=== PATIENT | male | born 1955 | race Caucasian/White ===

== ENCOUNTER 2020-04-13 13:45 | Outpatient (REF) | payer BC, SELFPAY ==
--- NOTE | 2020-04-13 13:49 | US_ITS ---
EXAMINATION: NONINVASIVE ASSESSMENT OF THE ARTERIES OF BOTH LOWER EXTREMITIES WITH BILATERAL LOWER EXTREMITY DUPLEX CLINICAL INFORMATION: Peripheral liver disease TECHNIQUE: Duplex Doppler techniques with wave form analysis and measurement of velocities in the common femoral, profunda femoral, superficial femoral, popliteal and tibial arteries. The study was performed only at rest. COMPARISON: None FINDINGS: a) AT REST: RIGHT LEG: Right direct duplex Doppler findings: There is atherosclerotic plaque. There is mild diffuse arteriomegaly. * Common femoral artery: 210 cm/s, Diastolic flow reversal: Yes * Superficial femoral artery (proximal, mid, distal): 141, 145 and 81 cm/s, Diastolic flow reversal: No * Popliteal artery: 58 cm/s, Diastolic flow reversal: Yes * Posterior tibial artery: 1:15 cm/s, Diastolic flow reversal: No LEFT LEG: Left direct duplex Doppler findings: There is atherosclerotic plaque. There is mild diffuse arteriomegaly. There is a severe stenosis of the left mid superficial femoral artery. * Common femoral artery: 120 cm/s, Diastolic flow reversal: Yes * Superficial femoral artery (proximal, mid, distal): 90, 598 and 40 cm/s, Diastolic flow reversal: No * Popliteal artery: 34 cm/s, Diastolic flow reversal: No * Posterior tibial artery: 65 cm/s, Diastolic flow reversal: No US/US arterial duplex LE BI IMPRESSION: Right: Mild atherosclerotic disease with calcified plaque. Mild generalized arteriomegaly. No focal stenosis. Left: Mild atherosclerotic disease with calcified plaque and generalized arteriomegaly. Severe left mid SFA stenosis
== END 2020-04-13 13:46 | disposition home or self-care (01) ==
LOC: HO.US 13:45
PROVIDERS: Visit Provider Internal Medicine Cardiovascular Disease
DX: I73.9 Peripheral vascular disease, unspecified (principal)
CPT/HCPCS: 93925

== ENCOUNTER 2020-04-14 08:39 | Outpatient (REF) | payer BC, SELFPAY ==
[2020-04-14 11:50] LABS: Anion Gap 11 (12-20); Blood Urea Nitrogen 11 mg/dL (9-16); Calcium 9.1 mg/dL (8.4-10.2); Carbon Dioxide 30 mmol/L (22-29); Chloride 102 mmol/L (96-108); Estimated Glomerular Filt Rate > 60; Glucose Random 99 mg/dL (60-115); Potassium 5.1 mmol/l (3.3-5.1); Sodium 138 mmol/L (135-145)
== END 2020-04-14 08:40 | disposition home or self-care (01) ==
LOC: HO.LAB 08:39
PROVIDERS: PCP Nurse Practitioner Family; Visit Provider Internal Medicine Cardiovascular Disease
DX: I73.9 Peripheral vascular disease, unspecified (principal); I25.5 Ischemic cardiomyopathy; I25.10 Atherosclerotic heart disease of native coronary artery without angina pectoris; F17.200 Nicotine dependence, unspecified, uncomplicated; E78.5 Hyperlipidemia, unspecified; Z79.899 Other long term (current) drug therapy
CPT/HCPCS: 36415; 80048; 93005

== ENCOUNTER 2020-04-15 10:59 | Outpatient (REF) | payer BC, SELFPAY ==
--- NOTE | 2020-04-15 11:01 | CT_ITS ---
EXAMINATION: CT ANGIOGRAPHY LEGS WITH RUNOFF CLINICAL INFORMATION: Peripheral vascular disease COMPARISON: None TECHNIQUE: Contiguous axial images were obtained through the abdomen and pelvis after administration of 85 mL of Omnipaque 350. Oral contrast was not administered. Images were evaluated on an independent dedicated 3-D workstation and 3-D images were reconstructed with concurrent radiologist supervision and subsequently interpreted. This CT examination was performed using dose optimization techniques as appropriate, variously including the following: *Automated exposure control *Adjustment of mA and/or kV according to patient size (this includes techniques or standardized protocols for targeted exams where dose is matched to indication/reason for exam; i.e. extremities or head) *Use of iterative reconstruction technique DLP: 815 mGy-cm FINDINGS: Lower chest: Unremarkable. There are no pleural effusions. Liver: Normal in size and attenuation. No focal lesions. Gallbladder and bile ducts: The gallbladder is normal. No intrahepatic or extrahepatic biliary ductal dilatation. Spleen: Normal in size and attenuation. Pancreas: Unremarkable. Adrenal glands: Unremarkable. Right kidney: The right kidney is normal. There is no hydronephrosis or hydroureter. Left kidney: The left kidney is normal. There is no hydronephrosis or hydroureter. Lymph nodes: There is no lymphadenopathy in the abdomen or pelvis. Gastrointestinal tract: The stomach, small, and large bowel are normal in course and caliber. The appendix is identified and is within normal limits. Colonic diverticulosis is noted. Urinary bladder: The bladder is underdistended.. Pelvic organs: Mild prostatomegaly. Vasculature: Mild ectasia of the infrarenal abdominal aorta measuring 2.4 cm. There is moderate mixed calcific and noncalcific atherosclerotic disease. There is mild stenosis at the origin of the celiac artery. The SMA patent. There is moderate stenosis at the origin of the KI. There are 2 right renal arteries, both of which are patent. There are 2 left renal arteries, both of which are patent. There is a 2.2 cm left common iliac artery aneurysm. The right common iliac artery is normal in caliber. There is no significant stenoses of the bilateral iliac arteries. Right lower extremity: Moderate stenosis of the right common femoral artery. There is extensive atherosclerotic disease throughout the right lower extremity. There are multiple areas of moderate stenosis throughout the course of the SFA, popliteal artery, and midcalf. There is a two-vessel runoff to the right ankle with the posterior tibial and peroneal arteries being patent. The anterior tibial artery is occluded past the mid calf. Left lower extremity: Moderate stenosis of the left common femoral artery. There is extensive atherosclerotic calcification throughout the left lower extremity. There is severe stenosis of the mid-distal SFA. The popliteal artery is patent. There is a two-vessel runoff to the left ankle with peroneal and posterior tibial arteries being patent. The intervertebral artery is occluded past the mid calf. Additional findings: There is no intraperitoneal free air or fluid. Soft tissues: Unremarkable. Osseous structures: Moderate degenerative disease of the lumbar spine. CT/CT angio abd aorta runoff IMPRESSION: 1. Ectasia of the infrarenal abdominal aorta measuring up to 2.4 cm. Left common iliac artery aneurysm measuring 2.2 cm. 2. Extensive atherosclerotic disease throughout the abdominal aorta and bilateral lower extremities, most severe in the left lower extremity with severe occlusion of the distal left SFA.
[2020-04-15] MEDS: iohexoL 350 MG/ML 100 ML INFUS..BTL IV (13:24)
== END 2020-04-15 11:00 | disposition home or self-care (01) ==
LOC: HO.CT 10:59
PROVIDERS: PCP Nurse Practitioner Family; Visit Provider Internal Medicine Cardiovascular Disease
DX: I73.9 Peripheral vascular disease, unspecified (principal)
CPT/HCPCS: 75635; Q9967

== ENCOUNTER → 2020-05-14 08:56 | Outpatient (BNVA) | payer BC, SELFPAY | PROVIDERS: PCP Nurse Practitioner Family; Visit Provider Internal Medicine Cardiovascular Disease ==

== ENCOUNTER 2020-09-03 14:39 | Outpatient (REF) | payer BC, SELFPAY ==
--- NOTE | ~2020-09-03 | US_ITS ---
EXAMINATION: US EXTRACRANIAL CAROTID DUPLEX, BILATERAL CLINICAL INFORMATION: Carotid stenosis COMPARISON: 07/22/2019 TECHNIQUE: Real-time ultrasound and Doppler techniques (integrating B-mode 2-D vascular images, Doppler spectral analysis and color-flow Doppler imaging) were utilized to interrogate the extracranial carotid arteries, the vertebral arteries and proximal subclavian arteries bilaterally. The degree of stenosis is determined by criteria similar to NASCET. FINDINGS: Right Side: 1. There is mild atherosclerotic plaque seen in the bifurcation/proximal ICA region. 2. The common carotid artery PSV proximally is 96 cm/s and distally 125 cm/s. 3. The proximal internal carotid artery velocities are 119 cm/s systolic and 26 cm/s diastolic. 4. The proximal external carotid artery PSV is 250 cm/s. 5. The vertebral artery shows antegrade flow. 6. The subclavian artery waveforms are normal. Left Side: 1. There is mild atherosclerotic plaque seen in the bifurcation/proximal ICA region. 2. The common carotid artery PSV proximally is 92 cm/s and distally 82 cm/s. 3. The proximal internal carotid artery velocities are 90 cm/s systolic and 33 cm/s diastolic. 4. The proximal external carotid artery PSV is 308 cm/s. 5. The vertebral artery shows antegrade flow. 6. The subclavian artery waveforms are normal. US/US carotid duplex BI IMPRESSION: 1. RIGHT: Minimal, non-hemodynamically significant stenosis of the proximal right internal carotid artery corresponding to a 0-49% stenosis by velocity criteria. 2. LEFT: Minimal, non-hemodynamically significant stenosis of the proximal left internal carotid artery corresponding to a 0-49% stenosis by velocity criteria. 3. There is no change in the category severity of disease when compared to the previous study dated 07/22/2019.
== END 2020-09-03 14:40 | disposition home or self-care (01) ==
LOC: HO.US 14:39
PROVIDERS: Visit Provider Surgery Vascular Surgery
DX: I65.23 Occlusion and stenosis of bilateral carotid arteries (principal)
CPT/HCPCS: 93880

== ENCOUNTER → 2020-09-07 12:55 | Outpatient (BNVA) | payer BC, SELFPAY | PROVIDERS: PCP Nurse Practitioner Family; Visit Provider Surgery Vascular Surgery ==

== ENCOUNTER 2020-09-21 12:26 | Outpatient (REF) | payer BC, SELFPAY ==
--- NOTE | ~2020-09-21 | US_ITS ---
EXAMINATION: ANKLE-BRACHIAL INDICES SINGLE LEVEL PULSE VOLUME RECORDING ARTERIAL DUPLEX BILATERAL LEGS CLINICAL INFORMATION: Peripheral vascular disease. COMPARISON: 04/13/2020. TECHNIQUE: Ankle-brachial indices and PVR at the ankle were obtained. Duplex Doppler of the bilateral lower extremity arterial systems was performed. FINDINGS: RIGHT: Ankle-brachial index: 1.17 PVR: Abnormal Common femoral: PSV 255 cm/s. Triphasic waveform. Deep femoral: PSV 269 cm/s. Biphasic waveform. Proximal superficial femoral: PSV 134 cm/s. Triphasic waveform. Mid superficial femoral: PSV 228 cm/s. Triphasic waveform. Distal superficial femoral: PSV 100 cm/s. Triphasic waveform. Popliteal: PSV 69 cm/s. Triphasic waveform. Posterior tibial artery: PSV 172 cm/s. Monophasic waveform. LEFT: Ankle-brachial index: 0.76 PVR: Abnormal. Common femoral: PSV 153 cm/s. Triphasic waveform. Deep femoral: PSV 190 cm/s. Triphasic waveform. Proximal superficial femoral: PSV 94 cm/s. Monophasic waveform. Mid superficial femoral: PSV 496 cm/s. Monophasic waveform. Distal superficial femoral: PSV 161 cm/s. Monophasic waveform. Popliteal: PSV 28 cm/s. Monophasic waveform. Posterior tibial artery: PSV 112 cm/s. Monophasic waveform. US/US arterial duplex LE BI IMPRESSION: Right lower extremity: Ankle-brachial index is 1.17 suspect falsely elevated due to calcified blood vessels. There is diffuse atherosclerotic disease particularly in the SFA with a focal moderate stenosis in the mid SFA. Left lower extremity: Ankle-brachial index is 0.76. There is diffuse atherosclerotic disease particularly in the SFA with severe focal stenosis in the mid SFA.
--- NOTE | ~2020-09-21 | US_ITS ---
EXAMINATION: ANKLE-BRACHIAL INDICES SINGLE LEVEL PULSE VOLUME RECORDING ARTERIAL DUPLEX BILATERAL LEGS CLINICAL INFORMATION: Peripheral vascular disease. COMPARISON: 04/13/2020. TECHNIQUE: Ankle-brachial indices and PVR at the ankle were obtained. Duplex Doppler of the bilateral lower extremity arterial systems was performed. FINDINGS: RIGHT: Ankle-brachial index: 1.17 PVR: Abnormal Common femoral: PSV 255 cm/s. Triphasic waveform. Deep femoral: PSV 269 cm/s. Biphasic waveform. Proximal superficial femoral: PSV 134 cm/s. Triphasic waveform. Mid superficial femoral: PSV 228 cm/s. Triphasic waveform. Distal superficial femoral: PSV 100 cm/s. Triphasic waveform. Popliteal: PSV 69 cm/s. Triphasic waveform. Posterior tibial artery: PSV 172 cm/s. Monophasic waveform. LEFT: Ankle-brachial index: 0.76 PVR: Abnormal. Common femoral: PSV 153 cm/s. Triphasic waveform. Deep femoral: PSV 190 cm/s. Triphasic waveform. Proximal superficial femoral: PSV 94 cm/s. Monophasic waveform. Mid superficial femoral: PSV 496 cm/s. Monophasic waveform. Distal superficial femoral: PSV 161 cm/s. Monophasic waveform. Popliteal: PSV 28 cm/s. Monophasic waveform. Posterior tibial artery: PSV 112 cm/s. Monophasic waveform. US/US ZULLY complete IMPRESSION: Right lower extremity: Ankle-brachial index is 1.17 suspect falsely elevated due to calcified blood vessels. There is diffuse atherosclerotic disease particularly in the SFA with a focal moderate stenosis in the mid SFA. Left lower extremity: Ankle-brachial index is 0.76. There is diffuse atherosclerotic disease particularly in the SFA with severe focal stenosis in the mid SFA.
== END 2020-09-21 12:27 | disposition home or self-care (01) ==
LOC: HO.US 12:26
PROVIDERS: Visit Provider Surgery Vascular Surgery
DX: I70.213 Atherosclerosis of native arteries of extremities with intermittent claudication, bilateral legs (principal)
CPT/HCPCS: 93923; 93925

== ENCOUNTER → 2020-09-23 13:11 | Outpatient (BNVA) | payer BC, SELFPAY | PROVIDERS: PCP Nurse Practitioner Family; Visit Provider Surgery Vascular Surgery ==

== ENCOUNTER 2020-09-29 07:22 | Day surgery (SDC) | payer BC, SELFPAY ==
[2020-09-29] VITALS (8 sets, daily range): BP systolic 125–139; BP diastolic 66–84; PULSE 51–69; RESP 16–18; TEMP 36.1–36.4; O2SAT 97–99; BMI 32.5
[2020-09-29] MEDS: 0.9 % Sodium Chloride 1,000 ML 100 ML IVCONT (08:00)
[2020-09-29 08:31] LABS: MANUAL DIFF FLAG NO
[2020-09-29 08:33] LABS: Basophils Absolute Auto 0.1 X10*3/uL (0.0-0.2); Basophils Percent Auto 0.5 % (0-2); Eosinophils Absolute Auto 0.3 X10*3/uL (0.0-0.4); Eosinophils Percent Auto 2.9 % (0-4); Hematocrit 42.2 % (42-52); Hemoglobin 14.6 g/dl (14.0-18.0); Imm Gran Abs Auto 0.03 X10*3/uL (0.00-0.03); Imm Gran Pct Auto 0.3 % (0.0-0.4); Lymphocytes Absolute Auto 1.8 X10*3/uL (1.2-4.9); Lymphocytes Percent Auto 18.9 % (20-40); Mean Corpuscular HGB Conc 34.6 g/dl (31.0-36.0); Mean Corpuscular Hemoglobin 33.5 pg (27.0-33.0); Mean Corpuscular Volume 96.8 fL (80-98); Mean Platelet Volume 9.9 fL (9.4-12.4); Monocytes Absolute Auto 0.6 X10*3/uL (0.1-1.2); Monocytes Percent Auto 6.2 % (2-11); Neutrophils Absolute Auto 6.7 X10*3/uL (2.0-8.3); Neutrophils Percent Auto 71.2 % (45-73); Platelet Count 187 X10*3/uL (160-400); Red Blood Count 4.36 X10*6/uL (4.60-5.80); Red Cell Distribution Width 13.5 % (11.0-16.0); White Blood Count 9.5 X10*3/uL (4.8-10.8)
[2020-09-29 08:40] LABS: INTERNATIONAL NORM RATIO 1.1 (0.9-1.1); Prothrombin Time 12.3 SEC (9.9-13.0)
[2020-09-29 08:43] LABS: Partial Thromboplastin Time 32.8 SEC (24.1-38.0)
[2020-09-29 08:57] LABS: Anion Gap 11 (12-20); Blood Urea Nitrogen 10 mg/dL (9-16); Calcium 8.8 mg/dL (8.4-10.2); Carbon Dioxide 27 mmol/L (22-29); Chloride 106 mmol/L (96-108); Creatinine Clr Calc Pharmacy 94.3; Estimated Glomerular Filt Rate > 60; Glucose Random 111 mg/dL (60-115); Potassium 4.7 mmol/L (3.3-5.1); Sodium 139 mmol/L (135-145)
--- NOTE | 2020-09-29 10:55 | W.PM.OPN ---
Operative Note Operative Note Date of Service: 09/29/20 Narrative: Angiogram report from [facility] Preoperative diagnosis: Atherosclerosis of left lower extremity with activity limiting claudication Postoperative diagnosis: Same Procedure: 1. Ultrasound-guided right common femoral access 2. Aortogram with left lower extremity runoff 3. left SFA atherectomy with stent Surgeon:Shekhar García M.D. Exerciser:None Anesthesia: Local with moderate conscious sedation for a total of 57 minutes, performed by nd Specimens:none Drains:none Estimated blood loss: Less than 10 ml Indications: 65-year-old gentleman with activity limiting claudication. He notes bilateral lower extremity pain but has been noticing some calf discomfort that has been progressing. Now presents to us for vascular intervention. The patient has signed the informed consent after reviewing risks, complications, benefits, and alternatives previously discussed with the patient in my office. The patient was given the opportunity to ask any additional questions or voice any concerns. All questions were answered to the patient's satisfaction. Procedure in detail: Patient was brought to the angiography suite prior to which a time-out was called for patient identification and site verification. Bilateral groins were prepped and draped in the standard surgical fashion. Under ultrasound guidance Right common femoral was punctured with micro puncture needle and wire. Subsequently a precision 4 Vincentian sheath was then placed. RobotsAlive wire was advanced to the level of the aorta. 4 Vincentian Flush catheter was brought up and parked at the level of the renal arteries. Aortogram was then undertaken. Catheter was brought down to the level of the iliac bifurcation. Iliacs were subsequently imaged. Catheter was then brought in up and over to the left side SFA. Runoff study was then undertaken. at this time there was disease noted in the SFA. 7000 units of systemic heparin was then administered. After 5 minutes of circulation time up and over 6 Vincentian sheath was then placed. We then advanced a Glidewire Advantage across the SFA and confirmed true lumen within out across catheter in the popliteal. Once this was done weeks changed out for spider wire. We then brought in a Hawk -1 atherectomy device. 3 unit of directional passes were then undertaken. Once this was done angiogram demonstrated reasonable result but there was still a fair amount of residual stenosis. At this point we brought in a 6 x 60 balloon. And post plasty there was still some residual stenosis we then brought in a 6 x 80 stent. Once in position this was deployed and subsequently it was plasty it into position with a 6 x 60 balloon. Multiple insufflations of this was required. Once this was accomplished catheter wire sheath was brought back up to the iliacs. It was noted that it was aneurysmal and no intervention was indicated catheter wire sheath was removed. StarClose closure device was then deployed. Patient tolerated the procedure well. Returned to recovery with stable vitals. Interpretation of films: 1. Ultrasound demonstrates appropriate femoral puncture. Image of which was saved. 2. Aortogram demonstrates appropriate caliber aorta. Minimal disease. Appropriate take-off of the renals. 3. Iliac images demonstrate Minimal stenosis but aneurysmal iliacs 4. left side had good flow through the common femoral profundus SFA was reasonable flow to the mid SFA high-grade stenosis. Multiple calcified lesion. Reconstituted at the above knee popliteal below knee was present and then there was 3 vessel runoff. Completion imaging demonstrated good flow through the SFA Conclusion: 1. successful atherectomy and stent of the left SFA. The patient is being maintained on aspirin and Xarelto. This note is constructed using voice recognition software. While every effort has been made to ensure accuracy, catapult and arresting gear officer errors may have been included. Thank you for allowing me to participate in the care of your patient. Yours sincerely, Shekhar García MD, FACS, R.P.V.I.
[2020-09-29] MEDS: iohexoL 350 MG/ML 100 ML INFUS..BTL IV (12:08)
[2020-09-29] MEDS: Lidocaine HCl 1 % MPF 5 ML VIAL 10 ML SUBCUT (12:09)
== END 2020-09-29 13:15 | disposition home or self-care (01) ==
PROVIDERS: PCP Nurse Practitioner Family; Visit Provider Surgery Vascular Surgery
DX: I70.212 Atherosclerosis of native arteries of extremities with intermittent claudication, left leg (principal); I25.5 Ischemic cardiomyopathy; I25.10 Atherosclerotic heart disease of native coronary artery without angina pectoris; Z95.1 Presence of aortocoronary bypass graft; E78.5 Hyperlipidemia, unspecified; Z79.899 Other long term (current) drug therapy; F17.210 Nicotine dependence, cigarettes, uncomplicated
CPT/HCPCS: 36415; 37227; 76937; 80048; 85025; 85610; 85730; 99152; 99153; C1714; C1725; C1760; C1769; C1876; C1884; C1887; J2250; J3010; Q9967

== ENCOUNTER → 2020-10-14 11:22 | Outpatient (BNVA) | payer BC, SELFPAY | PROVIDERS: PCP Nurse Practitioner Family; Visit Provider Surgery Vascular Surgery ==

== ENCOUNTER → 2020-11-11 09:29 | Outpatient (BNVA) | payer BC, SELFPAY | PROVIDERS: PCP Nurse Practitioner Family; Referring Provider Nurse Practitioner Family; Visit Provider Internal Medicine Cardiovascular Disease ==

== ENCOUNTER 2021-01-12 08:20 | Outpatient (REF) | payer BC, SELFPAY ==
--- NOTE | ~2021-01-12 | US_ITS ---
EXAMINATION: NONINVASIVE ASSESSMENT OF THE ARTERIES OF BOTH LOWER EXTREMITIES INCLUDING PVR EXAM AND BILATERAL LOWER EXTREMITY DUPLEX CLINICAL INFORMATION: Peripheral vascular disease COMPARISON: Ultrasound 09/21/2020 TECHNIQUE: Ankle pulse volume recordings, ankle pressure measurements and ankle brachial indices were obtained of the lower extremity arterial system bilaterally in addition to duplex Doppler techniques with wave form analysis and measurement of velocities in the common femoral, profunda femoral, superficial femoral, popliteal, tibial and peroneal arteries. The study was performed only at rest. FINDINGS: RIGHT LEG 1. Right Ankle-Brachial Index: 1.03 (higher of the DP/PT) >0.97-1.25 = normal - no significant arterial disease 0.75-0.96 = mild peripheral arterial disease 0.5-0.74 = moderate peripheral arterial disease <0.50 = severe peripheral arterial disease <0.30 = critical arterial disease 2. Segmental Pressures (mmHg): Brachial: 100 Ankle: PT 120, DP 120 3. PVR Waveforms: Ankle: Unremarkable 4. Direct Duplex: Common femoral artery: 160 cm/s, Multiphasic Profunda femoris artery: 196 cm/s, Multiphasic Superficial femoral artery (proximal): 133 cm/s, Multiphasic Superficial femoral artery (mid): 141 cm/s, Multiphasic Superficial femoral artery (distal): 50.7 cm/s, Multiphasic Proximal Popliteal artery: 76.2 cm/s, Multiphasic Distal popliteal artery: 54.6 cm/s, Multiphasic Mid posterior tibial artery: 64.4 cm/s, Multiphasic Peroneal artery: 59.7 cm/s, Multiphasic LEFT LE. Left Ankle-Brachial Index: 1.07 (higher of the DP/PT) >0.97-1.25 = normal - no significant arterial disease 0.75-0.96 = mild peripheral arterial disease 0.5-0.74 = moderate peripheral arterial disease <0.50 = severe peripheral arterial disease <0.30 = critical arterial disease 2. Segmental Pressures: Brachial: 116 Ankle: PT 124, DP 116 3. PVR Waveforms: Ankle: Unremarkable 4. Direct Duplex: Common femoral artery: 141 cm/s, Multiphasic Profunda femoris artery: 72.7 cm/s, Multiphasic Superficial femoral artery (proximal): 123 cm/s, Multiphasic There is a stent within the left mid SFA Proximal to stent: 127 cm/s, Multiphasic Within stent: 143-199 cm/s, multiphasic Superficial femoral artery (distal): 73.3 cm/s, Multiphasic Proximal Popliteal artery: 55.4 cm/s, Multiphasic Distal popliteal artery: 42.8 cm/s, Multiphasic Mid posterior tibial artery: 71.5 cm/s, Multiphasic Peroneal artery: 66.8 cm/s, Multiphasic US/US arterial duplex LE BI IMPRESSION: Right ZULLY 1.03 with an unremarkable PVR waveform. There is multiphasic flow throughout the right lower extremity. Left ZULLY 1.07 with an unremarkable PVR waveform. Mildly elevated flow velocity at the level of the mid SFA stent, otherwise there is multiphasic flow throughout the left lower extremity.
== END 2021-01-12 08:21 | disposition home or self-care (01) ==
LOC: HO.US 08:20
PROVIDERS: PCP Nurse Practitioner Family; Visit Provider Surgery Vascular Surgery
DX: I70.213 Atherosclerosis of native arteries of extremities with intermittent claudication, bilateral legs (principal)
CPT/HCPCS: 93923; 93925

== ENCOUNTER → 2021-01-20 12:48 | Outpatient (BNVA) | payer BC, SELFPAY | PROVIDERS: PCP Nurse Practitioner Family; Visit Provider Surgery Vascular Surgery ==

== ENCOUNTER 2021-03-21 15:54 | Outpatient (REF) | payer BC, SELFPAY ==
--- NOTE | ~2021-03-21 | XR_ITS ---
EXAMINATION: XR FOOT, LEFT CLINICAL INFORMATION: Pain in left foot. COMPARISON: None TECHNIQUE: AP, lateral, and oblique views of the left foot. FINDINGS: There is no acute fracture or malalignment. 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 There is an incidental bipartite hallux sesamoid. XR/XR foot LT min 3V IMPRESSION: Mild osteoarthritis of the 1st MTP joint. Otherwise, unremarkable radiographs.
== END 2021-03-21 15:55 | disposition home or self-care (01) ==
LOC: HO.HMGCX 15:54
PROVIDERS: PCP Nurse Practitioner Family; Visit Provider Nurse Practitioner Family
DX: M79.672 Pain in left foot (principal)
CPT/HCPCS: 73630

== ENCOUNTER 2021-03-22 07:23 | Outpatient (REF) | payer BC, SELFPAY ==
[2021-03-22 11:15] LABS: Appearance Urine CLEAR; Color Urine YELLOW; Glucose Urine UA NEG (NEG); Leukocyte Esterase Urine NEG (NEG); Nitrite Urine NEG (NEG); Specific Gravity - Urine 1.025 (1.005-1.025); Urine Blood NEG (NEG); Urine Ketones NEG (NEG); Urine Protein NEG (NEG-TRACE)
[2021-03-22 11:55] LABS: Alanine Aminotransferase 28 U/L (0-40); Albumin Level 4.1 g/dL (3.5-5.0); Alkaline Phosphatase 71 U/L (39-117); Anion Gap 10 (12-20); Aspartate Amino Transferase 24 U/L (5-37); Bilirubin Total 0.5 mg/dL (0.0-1.0); Blood Urea Nitrogen 14 mg/dL (9-16); Calcium 9.1 mg/dL (8.4-10.2); Carbon Dioxide 28 mmol/L (22-29); Chloride 104 mmol/L (96-108); Cholesterol 100 mg/dL; Estimated Glomerular Filt Rate > 60; Glucose Fasting 96 mg/dL (60-99); HDL Cholesterol 34 mg/dL; LDL Cholesterol Calculated 54 mg/dl; Potassium 4.3 mmol/L (3.3-5.1); Sodium 138 mmol/L (135-145); Total Protein 6.5 g/dL (6.5-8.0); Triglycerides 62 mg/dL
[2021-03-22 12:06] LABS: TSH reflex Free T4 3.07 uIU/mL (0.32-4.0)
[2021-03-22 13:19] LABS: Prostate Specific Antigen Scr 0.74 ng/mL (<0.05-4.0)
== END 2021-03-22 07:24 | disposition home or self-care (01) ==
LOC: HO.HMGCLDS 07:23
PROVIDERS: PCP Nurse Practitioner Family; Visit Provider Nurse Practitioner Family
DX: Z00.00 Encounter for general adult medical examination without abnormal findings (principal); Z12.5 Encounter for screening for malignant neoplasm of prostate
CPT/HCPCS: 36415; 80053; 80061; 81003; 84153; 84443

== ENCOUNTER 2021-04-26 07:13 | Outpatient (REF) | payer BC, SELFPAY ==
[2021-04-26 07:53] LABS: Cholesterol 112 mg/dL; HDL Cholesterol 34 mg/dL; LDL Cholesterol Calculated 63 mg/dl; Triglycerides 78 mg/dL
== END 2021-04-26 07:14 | disposition home or self-care (01) ==
LOC: HO.LAB 07:13
PROVIDERS: PCP Nurse Practitioner Family; Visit Provider Internal Medicine Cardiovascular Disease
DX: I25.10 Atherosclerotic heart disease of native coronary artery without angina pectoris (principal)
CPT/HCPCS: 36415; 80061

== ENCOUNTER → 2021-05-27 09:27 | Outpatient (BNVA) | payer BC, SELFPAY | PROVIDERS: PCP Nurse Practitioner Family; Referring Provider Nurse Practitioner Family; Visit Provider Internal Medicine Cardiovascular Disease ==

== ENCOUNTER → 2021-06-03 09:03 | Outpatient (REF) | payer BC, SELFPAY ==
--- NOTE | 2021-06-03 09:07 | CA_ITS ---
Transthoracic Echocardiogram Patient (Last, First, Middle): Mark Chamberlain, Gender: Male Date of : 1955 Age: 66 Procedure Date: 06/03/2021 Procedure Type: Transthoracic Echocardiogram Location: OP Height: 177.8 cm Weight: 104.33 kg BSA: 2.22 m2 Heart Rate: bpm BP: 110 / 70 mmHg Sole Leveler: NANCY Referring MD: Huang Orosco MD Clinical Engineering Manager: Huang Orosco MD Symptoms: I25.5 - Ischemic cardiomyopathy Study Quality: Fair ECG Rhythm: Sinus Conclusions: - 1. Low normal LV ejection fraction 50-55% with pseudonormal filling pattern with underlying wall motion abnormality suggestive coronary artery disease 2. Borderline left atrial enlargement 3. Normal cardiac valvular Doppler 4. Normal RV systolic pressure 5. No pericardial effusion Findings Procedure Information The patient declines contrast. Left Ventricle Normal left ventricular cavity size. There is normal left ventricular wall thickness. The left ventricular systolic function is low normal. The visually estimated ejection fraction is between 50-55%. Spectral Doppler is indicative of a pseudonormal filling pattern. E/E prime ratio is between 8 and 15 consistent with indeterminate filling pressures. Wall Motion Rest Echo Findings The mid inferior, mid inferoseptal, and basal inferolateral segments are hypokinetic. The basal inferior and basal inferoseptal segments are akinetic. All other scored wall segments showed normal motion. Right Ventricle Mildly increased right ventricular cavity size. There is low normal right ventricular systolic function. Atria The left atrium is likely dilated. There is no evidence of interatrial shunt. The right atrium is normal in size. Aortic Valve There is mild calcification of the aortic valve. There is no aortic valve stenosis. There is mild aortic valve regurgitation. Mitral Valve There is mild anterior and posterior mitral leaflet thickening. There is mild mitral annular calcification. There is trace mitral valve regurgitation. There is no mitral valve stenosis. Pulmonic Valve The pulmonic valve was not well visualized. Tricuspid Valve Likely normal tricuspid valve structure and function. There is trace tricuspid valve regurgitation. The right ventricular systolic pressure is normal. The right ventricular systolic pressure is 12 mmHg. Normal right atrial pressure. There is no evidence of pulmonary hypertension. Great Vessels All visible segments of the aorta are normal in size. The pulmonary artery was not well visualized. Moderate plaque is seen in the sino tubular ridge. Venous The inferior vena cava is normal in size and collapses greater than 50% with inspiration. Pericardium/Pleural There is no evidence of pericardial effusion. Prior Study Comparison Changes noted compared to prior study dated: 11/11/2019. LV function has marginally improved Measurements 2D Linear Measurements IVSd: 1.16 0.6-0.9/0.6-1.0 cm LVIDd: 5.74 3.9-5.3/4.2-5.9 cm LVIDd Index: 2.59 2.4-3.2/2.2-3.1 cm/m2 LVIDs: 4.03 2.0-3.6 cm LVPWd: 1.13 0.7-1.1 cm LA Diam: 4.60 2.7-3.8/3.0-4.0 cm LAIDs Index: 2.07 1.5-2.3 cm/m2 LV Mass: 341.81 67-162/88-224 g LV Mass Index: 153.97 43-95/49-115 g/m2 LVOT Diam: 2.30 3.0+(-)1.3 cm 2D Systolic Function EF 4C: 53.10 >55% EF 2C: 47.80 >55% EF BiP: 50.10 >55% Mitral Valve MV Pk E: 0.90 MV PK A: 0.67 MV Decel Time: 223.00 E/A: 1.30 E'Lateral: 7.07 E'Medial: 5.11 E/E' Med: 17.60 E/E' Lat: 12.70 PHT: 65.00 MVA PHT: 3.38 Decel [place]: 4.04 Aortic Valve AoV Pk Mikie: 1.82 AoV Mn Mikie: 1.24 AoV VTI: 0.38 AoV Pk Grad: 13.00 Aov Mn Grad: 7.00 JOSE Cont.VTI: 2.09 AI Pk Mikie: 3.99 AI [place]: 1.91 LVOT LVOT Pk Mikie: 0.91 LVOT Mn Mikie: 0.58 LVOT VTI: 0.19 LVOT Pk Grad: 3.00 LVOT Mn Grad: 2.00 LVOT Diam: 2.30 LVOT Area: 4.15 Diastolic Function MV Pk E: 0.90 MV Pk A: 0.67 E/A: 1.30 E'Medial: 5.11 E/E' Med: 17.60 E' Laterial: 7.07 E/E' Lat: 12.70 Right Ventricle TAPSE (mm): 15.50 TVS' Mikie: 6.85 Tricuspid Valve TR Pk Mikie: 1.49 TR Pk Grad: 9.00 RA Press: 3.00 RVSP: 12.00 Great Vessels Aorta Sinus of Valsalva: 3.34 2.0-3.[address] [place]: 2.84 1.7-3.4 cm Ao Asc: 3.60 2.1-3.4 cm Ao Arch: 3.10 Updated in Other Vendor System with Status of Final Huang Orosco MD electronically signed on 06/03/2021 2:45:55 PM with status of Final
== END ==
LOC: HO.CARD 09:03
PROVIDERS: PCP Nurse Practitioner Family; Visit Provider Internal Medicine Cardiovascular Disease
DX: I25.5 Ischemic cardiomyopathy (principal)
CPT/HCPCS: 93306

== ENCOUNTER 2021-06-07 13:00 | Outpatient (RCR) | payer MEDICARE, BC, SELFPAY ==
--- NOTE | 2021-04-14 14:13 | MHC.PT.EP ---
[facility] [place] Office [place] Office [place] Office [address] Marce Fajardo [address] [phone] F: [phone] F: [phone] F: [phone] F: [phone] Physical Therapy Plan of Care Date of Evaluation: Date of Surgery: Diagnosis: pain in L foot Assessment: 65 y/o M referred to PT with L foot pain. He has had L plantar fascia pain for 3 months of insidious onset, which is gradually improving. It is most stiff in the morning and for the first few steps of the day, improves with walking for longer distances. Examination shows decreased L ankle AROM, decreased L gastroc length, decreased L ankle/hip strength, and impaired gait pattern. Recommend PT 2x/week for 4 weeks (however he has a high co-pay and would like to come every other week 1x) to address impairments, implement HEP, and optimize functional mobility. Frequency and Duration: The patient will be seen 1x/week for 5 weeks Short Term Goals: 2 weeks 1. I with HEP Boilers And Pressure Vessels Inspector Goals: 5 weeks 1. I with HEP and self management of sx 2. Pt will demonstrate L heel strike during gait consistently > 500' and pain < 3/10 Treatment Plan: Modalities to reduce pain, spasms and effusion. Manual therapy to restore motion and function. Therapeutic exercise to improve strength and flexibility. Neuromuscular re-education for posture and balance. Therapeutic activities to return to functional activities of daily living. Electronically signed by: Edna Esteban PT Please sign and return to therapist. Thank you for your referral.
--- NOTE | 2021-07-15 11:44 | MHC.PT.DC ---
[facility] [place] Office [place] Office [place] Office [address] Marce Fajardo [address] [phone] F: [phone] F: [phone] F: [phone] F: [phone] Physical Therapy Discharge Report Diagnosis: pain in L foot Date of Surgery: Date of Evaluation: 04/14/21 Date of Discharge: 07/15/21 Treatments to Date: 4 Cancellations to Date: 0 No Shows to Date: 0 Discharge Status: Improved Function Independent with HEP Discharge Summary: We kept chart open for 30 days in case of recurrence of pain. At time of last visit, he demonstrated improved gait pattern with appropriate heel strike and toe off today. He reports overall feeling better with less foot pain and able to do more at home. Reviewed HEP and not overdoing exercises (pushing into pain or over-stretching.) He has made good progress and will keep chart open for 30days. Electronically signed by: Edna Esteban PT Please sign and return to therapist. Thank you for your referral.
== END 2021-07-15 11:45 | disposition home or self-care (01) ==
LOC: HO.PT 13:00
PROVIDERS: PCP Nurse Practitioner Family; Visit Provider Nurse Practitioner Family
DX: M79.672 Pain in left foot (principal)
CPT/HCPCS: 97110; 97140; 97161

== ENCOUNTER 2021-07-26 12:18 | Outpatient (REF) | payer BC, SELFPAY ==
--- NOTE | ~2021-07-26 | US_ITS ---
EXAMINATION: US EXTRACRANIAL CAROTID DUPLEX, BILATERAL CLINICAL INFORMATION: Carotid artery disease with history of right CEA. COMPARISON: 09/03/2020 TECHNIQUE: Real-time ultrasound and Doppler techniques (integrating B-mode 2-D vascular images, Doppler spectral analysis and color-flow Doppler imaging) were utilized to interrogate the extracranial carotid arteries, the vertebral arteries and proximal subclavian arteries bilaterally. The degree of stenosis is determined by criteria similar to NASCET. FINDINGS: Right Side: 1. There is mild atherosclerotic plaque seen in the bifurcation/proximal ICA region. 2. The common carotid artery PSV proximally is 117 cm/s and distally 107 cm/s. 3. The proximal internal carotid artery velocities are 87 cm/s systolic and 16 cm/s diastolic. 4. The proximal external carotid artery PSV is 263 cm/s. 5. The vertebral artery shows antegrade flow. 6. The subclavian artery waveforms are normal. Left Side: 1. There is calcified and shadowing atherosclerotic plaque seen in the bifurcation/proximal ICA region. 2. The common carotid artery PSV proximally is 90 cm/s and distally 89 cm/s. 3. The proximal internal carotid artery velocities are 93 cm/s systolic and 31 cm/s diastolic. 4. The proximal external carotid artery PSV is 301 cm/s. 5. The vertebral artery shows antegrade flow. 6. The subclavian artery waveforms are normal. US/US carotid duplex BI IMPRESSION: 1. RIGHT: Minimal, non-hemodynamically significant stenosis of the proximal right internal carotid artery corresponding to a 0-49% stenosis by velocity criteria. 2. LEFT: Minimal, non-hemodynamically significant stenosis of the proximal left internal carotid artery corresponding to a 0-49% stenosis by velocity criteria. 3. There is no change in the category severity of disease when compared to the previous study dated 09/03/2020.
--- NOTE | ~2021-07-26 | US_ITS ---
EXAMINATION: US NONINVASIVE ASSESSMENT OF THE ARTERIES OF BOTH LOWER EXTREMITIES INCLUDING PVR EXAM AND BILATERAL LOWER EXTREMITY DUPLEX CLINICAL INFORMATION: Peripheral vascular disease, unspecified. COMPARISON: Ultrasound 01/12/2021. TECHNIQUE: Ankle pulse volume recordings, ankle pressure measurements and ankle brachial indices were obtained of the lower extremity arterial system bilaterally in addition to duplex Doppler techniques with wave form analysis and measurement of velocities in the common femoral, profunda femoral, superficial femoral, popliteal, tibial and peroneal arteries. The study was performed only at rest. FINDINGS: RIGHT LEG 1. Right Ankle-Brachial Index: 0.98 (higher of the DP/PT) >0.97-1.25 = normal - no significant arterial disease 0.75-0.96 = mild peripheral arterial disease 0.5-0.74 = moderate peripheral arterial disease <0.50 = severe peripheral arterial disease <0.30 = critical arterial disease 2. Segmental Pressures (mmHg): Brachial: 121 Ankle: PT 118, DP 115 3. PVR Waveforms: Ankle: Unremarkable 4. Direct Duplex: Common femoral artery: 196 cm/s, Multiphasic Profunda femoris artery: 179 cm/s, Multiphasic Superficial femoral artery (proximal): 135 cm/s, Multiphasic Superficial femoral artery (mid): 136 cm/s, Multiphasic Superficial femoral artery (distal): 164 cm/s, Multiphasic Proximal Popliteal artery: 66.8 cm/s, Multiphasic Distal popliteal artery: 68 cm/s, Multiphasic Mid posterior tibial artery: 70.4 cm/s, Multiphasic Peroneal artery: 85 cm/s, Multiphasic LEFT LE. Left Ankle-Brachial Index: 0.84 (higher of the DP/PT) >0.97-1.25 = normal - no significant arterial disease 0.75-0.96 = mild peripheral arterial disease 0.5-0.74 = moderate peripheral arterial disease <0.50 = severe peripheral arterial disease <0.30 = critical arterial disease 2. Segmental Pressures: Brachial: 114 Ankle: PT 101, DP 102 3. PVR Waveforms: Ankle: Loss of dicrotic notch 4. Direct Duplex: Common femoral artery: 164 cm/s, Multiphasic Profunda femoris artery: 151 cm/s, Multiphasic Superficial femoral artery (proximal): 107 cm/s, Multiphasic There is a stent within the mid superficial femoral artery. Proximal to stent: 126 cm/s, Multiphasic Proximal stent: 174 cm/s, multiphasic Mid stent: 217 cm/s, multiphasic Distal stent 294 cm/s, multiphasic Distal to stent: 185 cm/s, multiphasic Superficial femoral artery (distal): 57.4 cm/s, Multiphasic Proximal Popliteal artery: 53.4 cm/s, Multiphasic Distal popliteal artery: 46.8 cm/s, Multiphasic Mid posterior tibial artery: 61 cm/s, Multiphasic Peroneal artery: 35.8 cm/s, monophasic Incidental note of a 3.5 x 0.9 x 2.2 cm Johnston's cyst. US/US arterial duplex LE BI IMPRESSION: Right ZULLY 0.98 with unremarkable PVR waveform. There is multiphasic flow throughout the right lower extremity. Left ZULLY 0.84, previously 1.07. Loss of dicrotic notch on PVR waveform. There is elevated flow velocity within the [id number] aspect of the superficial femoral arterial stent which has increased since the prior study worrisome for progressive stent stenosis.
== END 2021-07-26 12:19 | disposition home or self-care (01) ==
LOC: HO.US 12:18
PROVIDERS: PCP Nurse Practitioner Family; Visit Provider Surgery Vascular Surgery
DX: I65.23 Occlusion and stenosis of bilateral carotid arteries (principal); I73.9 Peripheral vascular disease, unspecified
CPT/HCPCS: 93880; 93925

== ENCOUNTER → 2021-08-01 11:07 | Outpatient (BNVA) | payer BC, SELFPAY | PROVIDERS: PCP Nurse Practitioner Family; Visit Provider Surgery Vascular Surgery | DX: I65.23 Occlusion and stenosis of bilateral carotid arteries (principal) ==

== ENCOUNTER 2021-09-08 08:54 | Outpatient (REF) | payer MEDICARE, SELFPAY ==
--- NOTE | ~2021-09-08 | XR_ITS ---
EXAMINATION: XR KNEE, LEFT CLINICAL INFORMATION: Pain. COMPARISON: None TECHNIQUE: Four views of the left knee. FINDINGS: There is a loss of tricompartment joint space with chondrocalcinosis. No visible acute fracture, dislocation or lytic process seen. No bony erosive changes. There is arthroscopic calcification of popliteal and distal SFA. The soft tissues are normal. XR/XR knee LT 4V IMPRESSION: Mild degenerative changes left knee. No visible acute fracture or dislocation seen.
== END 2021-09-08 08:55 | disposition home or self-care (01) ==
LOC: HO.HMGCLDS 08:54
PROVIDERS: Visit Provider Nurse Practitioner Family
DX: M25.562 Pain in left knee (principal)
CPT/HCPCS: 73564

== ENCOUNTER → 2021-09-15 08:37 | Outpatient (BNVA) | payer MEDICARE, SELFPAY | PROVIDERS: PCP Nurse Practitioner Family; Visit Provider Orthopaedic Surgery | DX: S76.312A Strain of muscle, fascia and tendon of the posterior muscle group at thigh level, left thigh, initial encounter (principal) | CPT/HCPCS: 99212 ==

== ENCOUNTER 2021-10-27 13:00 | Outpatient (RCR) | payer BC, MEDICARE, SELFPAY ==
--- NOTE | 2021-08-17 16:31 | MHC.PT.EP ---
[facility] [place] Office [place] Office [place] Office [address] Marce Fajardo [address] [phone] F: [phone] F: [phone] F: [phone] F: [phone] Physical Therapy Plan of Care Date of Evaluation: Date of Surgery: Diagnosis: L knee pain Assessment: 66 y/o M referred to PT with pain in L knee. Reports initially injured L LE while climbing down a ladder stepping too hard ~01/13 resulting in plantar fascitis, he had ~3 visits of PT for this due to high co-pay States he feels like he overstretched doing HEP for his foot (thinks either gastroc stretch or eccentric heel raises irritated it); I realized I was exercising like I was 18 . He made an MD appointment re knee pain which then got cancelled. 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 His pain is located posterior knee. Denies n/t. Denies giving way but he is nervous it will give out. Denies clicking, locking episodes. It is difficult to straighten knee in the morning. It gets very stiff and feels weak. Rolling over in bed, lifting leg into car/ tub, standing, walking, and stairs are difficult and painful. He uses a walker in the morning when he is stiff from sleeping all night. PMH signfiicant for CABG 2017, L stent, HTN. Examination shows decreased L knee AROM, decreased strength of L LE, pain with resisted knee flexion, decreased L HS length, increased swelling, increased TTP posterior L knee fossa, some atrohpy L calf, and impaired gait pattern. Unable to assess lumbar AROM this visit. S/s consistent with ?HS strain with Bakers cyst verse posterior horn meniscal involvement. Recommend PT 2x/week for 6 weeks to address impairments, implement HEP, and optimize functional mobility. Pt had several questions re work duties, yardwork, use of ice/heat, and pathology. 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 Frequency and Duration: The patient will be seen 2x/week for 6 weeks Short Term Goals: 3 weeks 1. I with HEP 2. Improve L knee extension to 5* Care Home Goals: 6 weeks 1. I with HEP and self management of sx 2. Pt will improve L HS strength to 4/5 to facilitate stairs 3. Pt will be able to ambulate > 20 min with symmetrical gait pattern and pain < 3/10 Treatment Plan: Modalities to reduce pain, spasms and effusion. Manual therapy to restore motion and function. Therapeutic exercise to improve strength and flexibility. Neuromuscular re-education for posture and balance. Therapeutic activities to return to functional activities of daily living. Electronically signed by: Edna Esteban PT Please sign and return to therapist. Thank you for your referral.
--- NOTE | 2021-11-01 14:16 | MHC.PT.DC ---
[facility] [place] Office [place] Office [place] Office [address] Marce Fajardo [address] [phone] F: [phone] F: [phone] F: [phone] F: [phone] Physical Therapy Discharge Report Diagnosis: L knee pain Date of Surgery: Date of Evaluation: 08/17/21 Date of Discharge: 10/27/21 Treatments to Date: 14 Cancellations to Date: 0 No Shows to Date: 0 Discharge Status: Achieved Goals Improved Function Independent with HEP Discharge Summary: Pt has met all goals and is I with HEP. His LEFS improved to 54/80 from . No further questions and pt is d/c at this time. Electronically signed by: Edna Esteban PT Please sign and return to therapist. Thank you for your referral.
== END 2021-11-01 14:16 | disposition home or self-care (01) ==
LOC: HO.PT 13:00
PROVIDERS: PCP Nurse Practitioner Family; Visit Provider Nurse Practitioner Family
DX: M25.562 Pain in left knee (principal)
CPT/HCPCS: 97035; 97110; 97112; 97162

== ENCOUNTER 2022-02-08 12:58 | Outpatient (REF) | payer MEDICARE, SELFPAY ==
--- NOTE | ~2022-02-08 | US_ITS ---
EXAMINATION: NONINVASIVE ASSESSMENT OF THE ARTERIES OF BOTH LOWER EXTREMITIES INCLUDING PVR EXAM AND BILATERAL LOWER EXTREMITY DUPLEX CLINICAL INFORMATION: Peripheral vascular disease, unspecified COMPARISON: Ultrasound 07/26/2021 TECHNIQUE: Ankle pulse volume recordings, ankle pressure measurements and ankle brachial indices were obtained of the lower extremity arterial system bilaterally in addition to duplex Doppler techniques with wave form analysis and measurement of velocities in the common femoral, profunda femoral, superficial femoral, popliteal, tibial and peroneal arteries. The study was performed only at rest. FINDINGS: RIGHT LEG 1. Right Ankle-Brachial Index: 1.13 (higher of the DP/PT) >0.97-1.25 = normal - no significant arterial disease 0.75-0.96 = mild peripheral arterial disease 0.5-0.74 = moderate peripheral arterial disease <0.50 = severe peripheral arterial disease <0.30 = critical arterial disease 2. Segmental Pressures (mmHg): Brachial: 121 Ankle: PT 118, DP 115 3. PVR Waveforms: Ankle: Abnormal: Loss of dicrotic notch 4. Direct Duplex: Common femoral artery: 241 cm/s, Multiphasic Profunda femoris artery: 152 cm/s, Multiphasic Superficial femoral artery (proximal): 156 cm/s, Multiphasic Superficial femoral artery (mid): 146 cm/s, Multiphasic Superficial femoral artery (distal): 147 cm/s, Multiphasic Proximal Popliteal artery: 64.8 cm/s, Multiphasic Mid posterior tibial artery: 98.5 ccm/s, Multiphasic Peroneal artery: 28.1 cm/s, Multiphasic-previously 85 cm/s LEFT LE. Left Ankle-Brachial Index: 0.96 (higher of the DP/PT) >0.97-1.25 = normal - no significant arterial disease 0.75-0.96 = mild peripheral arterial disease 0.5-0.74 = moderate peripheral arterial disease <0.50 = severe peripheral arterial disease <0.30 = critical arterial disease 2. Segmental Pressures: Brachial: 114 Ankle: PT 101, DP 102 3. PVR Waveforms: Ankle: Abnormal, loss of dicrotic notch 4. Direct Duplex: Common femoral artery: 114 cm/s, Multiphasic Profunda femoris artery: 142 cm/s, Multiphasic Superficial femoral artery (proximal): 155 cm/s, Multiphasic There is a stent within the midportion of the superficial femoral artery. Proximal to stent: 132 cm/s, multiphasic Proximal stent: 178 cm/s, multiphasic Mid stent: 184 cm/s, multiphasic Distal stent: 263 cm/s, multiphasic Distal to stent 182 cm/s, multiphasic Superficial femoral artery (distal): 101 cm/s, Multiphasic Proximal Popliteal artery: 78.6 cm/s, Multiphasic Mid posterior tibial artery: 159 cm/s, Multiphasic Peroneal artery: 45.2 cm/s, Multiphasic US/US arterial duplex LE BI IMPRESSION: On the right the ZULLY is 1.13, there is again loss of dicrotic notch on PVR waveform. There is multiphasic flow throughout the lower extremity with decreased velocity within the peroneal artery when compared with the previous study, though the sampled Doppler waveform is limited. On the left ZULLY is 0.96, previously 0.84. There is unchanged appearance of the PVR waveform. Multiphasic flow is seen throughout the lower extremity and velocities along the superficial femoral arterial stent are similar to prior.
== END 2022-02-08 12:59 | disposition home or self-care (01) ==
LOC: HO.US 12:58
PROVIDERS: Visit Provider Surgery Vascular Surgery
DX: I73.9 Peripheral vascular disease, unspecified (principal)
CPT/HCPCS: 93923; 93925

== ENCOUNTER 2022-03-09 06:52 | Outpatient (REF) | payer MEDICARE, SELFPAY ==
[2022-03-09 11:26] LABS: MANUAL DIFF FLAG NO
[2022-03-09 11:32] LABS: Appearance Urine Clear; Color Urine Yellow; Glucose Urine UA Negative (Negative); Leukocyte Esterase Urine Negative (Negative); Nitrite Urine Negative (Negative); PH 5.5 (5.0-9.0); Specific Gravity - Urine 1.015 (1.005-1.025); Urine Blood Negative (Negative); Urine Ketones Negative (Negative); Urine Protein Negative (Neg-Trace)
[2022-03-09 11:41] LABS: Basophils Absolute Auto 0.1 X10*3/uL (0.0-0.2); Basophils Percent Auto 0.5 % (0-2); Eosinophils Absolute Auto 0.4 X10*3/uL (0.0-0.4); Eosinophils Percent Auto 3.4 % (0-4); Hemoglobin 15.4 g/dl (14.0-18.0); Imm Gran Abs Auto 0.04 X10*3/uL (0.00-0.03); Imm Gran Pct Auto 0.4 % (0.0-0.4); Lymphocytes Absolute Auto 1.9 X10*3/uL (1.2-4.9); Lymphocytes Percent Auto 17.7 % (20-40); Mean Corpuscular HGB Conc 33.5 g/dl (31.0-36.0); Mean Corpuscular Hemoglobin 33.2 pg (27.0-33.0); Mean Corpuscular Volume 99.1 fL (80.0-98.0); Mean Platelet Volume 11.1 fL (9.4-12.4); Monocytes Absolute Auto 0.7 X10*3/uL (0.1-1.2); Monocytes Percent Auto 6.4 % (2-11); Neutrophils Absolute Auto 7.8 x10*3/uL (2.0-8.3); Neutrophils Percent Auto 71.6 % (45-73); Platelet Count 252 X10*3/uL (160-400); Red Blood Count 4.64 X10*6/uL (4.60-5.80); Red Cell Distribution Width 12.8 % (11.0-16.0); White Blood Count 10.9 X10*3/uL (4.8-10.8)
[2022-03-09 13:31] LABS: Alanine Aminotransferase 23 U/L (0-40); Albumin Level 4.1 g/dL (3.5-5.0); Alkaline Phosphatase 75 U/L (39-117); Anion Gap 11 (12-20); Aspartate Amino Transferase 24 U/L (5-37); Bilirubin Total 0.6 mg/dL (0.0-1.0); Blood Urea Nitrogen 12 mg/dL (9-16); Carbon Dioxide 27 mmol/L (22-29); Chloride 106 mmol/L (96-108); Cholesterol 97 mg/dL; Estimated Glomerular Filt Rate > 60; Glucose Fasting 96 mg/dL (60-99); HDL Cholesterol 38 mg/dL; LDL Cholesterol Calculated 50 mg/dl; Potassium 4.6 mmol/L (3.3-5.1); Prostate Specific Antigen Scr 0.81 ng/mL (<0.05-4.0); Sodium 139 mmol/L (135-145); Total Protein 6.3 g/dL (6.5-8.0); Triglycerides 45 mg/dL
== END 2022-03-09 06:53 | disposition home or self-care (01) ==
LOC: HO.HMGCLDS 06:52
PROVIDERS: PCP Nurse Practitioner Family; Visit Provider Nurse Practitioner Family
DX: Z12.5 Encounter for screening for malignant neoplasm of prostate (principal); E78.5 Hyperlipidemia, unspecified
CPT/HCPCS: 36415; 80053; 80061; 81003; 84153; 84443; 85025

== ENCOUNTER 2022-04-13 12:25 | Outpatient (REF) | payer MEDICARE, SELFPAY ==
--- NOTE | ~2022-04-13 | XR_ITS ---
EXAMINATION: XR HAND, RIGHT XR HAND, LEFT CLINICAL INFORMATION: Bilateral pain in hands COMPARISON: None TECHNIQUE: Each hand is imaged in 3 views. There are a total of 6 views. FINDINGS: Right: Normal bony mineralization. No periarticular demineralization. Ulnar variance is neutral. There are some fine calcifications wrist which appeared just dorsal and volar to the carpal bones possibly related to ligaments. No joint narrowing or erosive change or articular chondrocalcinosis. The MCP and into phalangeal joints show no focal narrowing or erosive change. Mild spurring base first distal phalanx. Left: Bony mineralization normal. No periarticular demineralization. Ulnar variance is neutral. No carpal joint narrowing or erosive change or chondrocalcinosis. The MCP joints are normal. The PIP joints are normal. There are degenerative changes third finger DIP joint. No erosive changes. XR/XR hand LT 2V IMPRESSION: Right: -No focal joint narrowing or erosive change. -Some punctate fine chondrocalcinosis dorsal and volar wrist. Left: -Degenerative changes third finger DIP joint. No erosive change.
--- NOTE | ~2022-04-13 | XR_ITS ---
EXAMINATION: XR HAND, RIGHT XR HAND, LEFT CLINICAL INFORMATION: Bilateral pain in hands COMPARISON: None TECHNIQUE: Each hand is imaged in 3 views. There are a total of 6 views. FINDINGS: Right: Normal bony mineralization. No periarticular demineralization. Ulnar variance is neutral. There are some fine calcifications wrist which appeared just dorsal and volar to the carpal bones possibly related to ligaments. No joint narrowing or erosive change or articular chondrocalcinosis. The MCP and into phalangeal joints show no focal narrowing or erosive change. Mild spurring base first distal phalanx. Left: Bony mineralization normal. No periarticular demineralization. Ulnar variance is neutral. No carpal joint narrowing or erosive change or chondrocalcinosis. The MCP joints are normal. The PIP joints are normal. There are degenerative changes third finger DIP joint. No erosive changes. XR/XR hand RT 2V IMPRESSION: Right: -No focal joint narrowing or erosive change. -Some punctate fine chondrocalcinosis dorsal and volar wrist. Left: -Degenerative changes third finger DIP joint. No erosive change.
[2022-04-13 13:48] LABS: MANUAL DIFF FLAG NO
[2022-04-13 13:51] LABS: Basophils Absolute Auto 0.1 X10*3/uL (0.0-0.2); Basophils Percent Auto 0.5 % (0-2); Eosinophils Absolute Auto 0.3 X10*3/uL (0.0-0.4); Hematocrit 46.4 % (42.0-52.0); Hemoglobin 16.3 g/dl (14.0-18.0); Imm Gran Abs Auto 0.05 X10*3/uL (0.00-0.03); Imm Gran Pct Auto 0.4 % (0.0-0.4); Lymphocytes Absolute Auto 2.8 X10*3/uL (1.2-4.9); Lymphocytes Percent Auto 21.3 % (20-40); Mean Corpuscular HGB Conc 35.1 g/dl (31.0-36.0); Mean Corpuscular Hemoglobin 33.7 pg (27.0-33.0); Mean Corpuscular Volume 96.1 fL (80.0-98.0); Mean Platelet Volume 10.7 fL (9.4-12.4); Monocytes Absolute Auto 0.7 X10*3/uL (0.1-1.2); Monocytes Percent Auto 5.6 % (2-11); Neutrophils Absolute Auto 9.3 x10*3/uL (2.0-8.3); Neutrophils Percent Auto 70.2 % (45-73); Platelet Count 231 X10*3/uL (160-400); Red Blood Count 4.83 X10*6/uL (4.60-5.80); Red Cell Distribution Width 12.4 % (11.0-16.0); White Blood Count 13.3 X10*3/uL (4.8-10.8)
[2022-04-13 14:24] LABS: Vitamin D 25-OH Total 45.6 ng/mL (>30)
[2022-04-13 14:30] LABS: Erythrocyte Sedimentation Rate 4 MM/HR (0-15)
[2022-04-13 14:36] LABS: Alanine Aminotransferase 32 U/L (0-40); Albumin Level 4.2 g/dL (3.5-5.0); Alkaline Phosphatase 79 U/L (39-117); Anion Gap 15 (12-20); Aspartate Amino Transferase 26 U/L (5-37); Bilirubin Total 0.7 mg/dL (0.0-1.0); Blood Urea Nitrogen 13 mg/dL (9-16); C Reactive Protein < 0.10 mg/dL (< or = 0.50); Calcium 9.3 mg/dL (8.4-10.2); Carbon Dioxide 23 mmol/L (22-29); Chloride 105 mmol/L (96-108); Estimated Glomerular Filt Rate > 60; Glucose Random 101 mg/dL (60-115); Potassium 4.5 mmol/L (3.3-5.1); Rheumatoid Factor < 13.0 IU/mL (<15.0); Sodium 138 mmol/L (135-145); Total Protein 6.8 g/dL (6.5-8.0)
[2022-04-14 08:23] LABS: Lyme Abs Screen <0.90 index
[2022-04-14 19:37] LABS: Antibody to SS-A Antigen <1.0 NEG AI (<1.0 NEG); Antibody to SS-B Antigen <1.0 NEG AI (<1.0 NEG)
[2022-04-16 23:05] LABS: Cyclic Citrullinated Peptide <16 UNITS
[2022-04-17 16:23] LABS: Anti Nuclear Antibody Screen NEGATIVE (NEGATIVE)
== END 2022-04-13 12:26 | disposition home or self-care (01) ==
LOC: HO.HMGCX 12:25
PROVIDERS: PCP Nurse Practitioner Family; Visit Provider Nurse Practitioner Family
DX: D72.829 Elevated white blood cell count, unspecified (principal); F17.200 Nicotine dependence, unspecified, uncomplicated; M79.10 Myalgia, unspecified site; E55.9 Vitamin D deficiency, unspecified; M25.50 Pain in unspecified joint
CPT/HCPCS: 36415; 73120; 80053; 82306; 82550; 84550; 85025; 85652; 86038; 86039; 86140; 86200; 86235; 86431; 86617; 86618

== ENCOUNTER 2022-04-18 11:12 | Outpatient (REF) | payer MEDICARE, SELFPAY ==
--- NOTE | ~2022-04-18 | XR_ITS ---
EXAMINATION: XR CHEST CLINICAL INFORMATION: Elevated white blood cell count. COMPARISON: None TECHNIQUE: 2 views of the chest were obtained. FINDINGS: No significant abnormality is noted involving the heart, lungs, mediastinum, bony thorax or soft tissues. Multilevel sternotomy wires are intact. XR/XR chest 2V IMPRESSION: No acute cardiopulmonary process.
[2022-04-18 14:21] LABS: Appearance Urine Clear; Color Urine Dark Yellow; Glucose Urine UA Negative (Negative); Leukocyte Esterase Urine Negative (Negative); Nitrite Urine Negative (Negative); PH 5.5 (5.0-9.0); Urine Blood Negative (Negative); Urine Ketones Negative (Negative); Urine Protein Negative (Neg-Trace)
== END 2022-04-18 11:13 | disposition home or self-care (01) ==
LOC: HO.HMGCX 11:12
PROVIDERS: PCP Nurse Practitioner Family; Visit Provider Nurse Practitioner Family
DX: D72.829 Elevated white blood cell count, unspecified (principal)
CPT/HCPCS: 71046; 81003; 87086

== ENCOUNTER 2022-04-24 09:58 | Outpatient (REF) | payer MEDICARE, SELFPAY ==
--- NOTE | 2022-04-24 12:00 | PFT_ITS ---
FLOWS: FEV1 93% of predicted at 3.19 L. FVC 93% of predicted at 4.3 L. FEV1 to FVC ratio 0.75. No bronchodilator response except small to medium airways. LUNG VOLUMES: Total lung capacity 95% of predicted at 6.66 L. Residual volume 99% of predicted at 2.36 L. Slow vital capacity 92% of predicted at 4.31 L. Expiratory reserve volume 62% of predicted at 0.84 L. Diffusion capacity is mildly decreased. IMPRESSION: No obstructive or restrictive ventilatory defect. No bronchodilator response except small to medium airways. Decreased diffusion capacity suggests emphysema. MD KATERIN Soriano/MODL / [id number]
== END 2022-04-24 09:59 | disposition home or self-care (01) ==
LOC: HO.RESP 09:58
PROVIDERS: PCP Nurse Practitioner Family; Visit Provider Nurse Practitioner Family
DX: F17.200 Nicotine dependence, unspecified, uncomplicated (principal)
CPT/HCPCS: 94060; 94727; 94729

== ENCOUNTER → 2022-05-23 08:07 | Outpatient (BNVA) | payer MEDICARE, SELFPAY | PROVIDERS: PCP Nurse Practitioner Family; Visit Provider Surgery Vascular Surgery | DX: I73.9 Peripheral vascular disease, unspecified (principal); I65.23 Occlusion and stenosis of bilateral carotid arteries | CPT/HCPCS: 99212 ==

== ENCOUNTER 2022-05-26 13:21 | Outpatient (REF) | payer MEDICARE, SELFPAY ==
--- NOTE | ~2022-05-26 | CT_ITS ---
EXAMINATION: CT CHEST SCREENING CLINICAL INFORMATION: Nicotine dependence. Lung screening. 45 pack-year smoker. COMPARISON: 02/24/2009 TECHNIQUE: Multidetector volumetric CT imaging of the chest is performed without contrast using low dose technique. Additional 2D coronal and sagittal reformatted images and axial 3D maximum intensity projection (MIP) images are generated on the CT workstation. This CT examination was performed using dose optimization techniques as appropriate, variously including the following: *Automated exposure control *Adjustment of mA and/or kV according to patient size (this includes techniques or standardized protocols for targeted exams where dose is matched to indication/reason for exam; i.e. extremities or head) *Use of iterative reconstruction technique DLP: 87 mGy-cm FINDINGS: LUNGS: The central airways are patent. There is no dense consolidation. No pneumothorax. There is a right lower lobe solid pulmonary nodule measuring 0.7 cm on series 5 image 319. On the study from 2008 this had measured 0.5 cm. MEDIASTINUM: Normal heart size. No pericardial effusion. No mediastinal lymphadenopathy. CABG. CORONARY ARTERY CALCIFICATION: Present PLEURA: There is no pleural effusion. No pleural mass or thickening. AXILLA: No lymphadenopathy. UPPER ABDOMEN: Unremarkable OSSEOUS STRUCTURES: No acute or suspicious osseous abnormality. Degenerative change throughout the spine. CT/CT lung screening IMPRESSION: Right lower lobe solid pulmonary nodule measuring 0.7 cm. On the study from 2008 this had measured 0.5 cm. ASSESSMENT: Lung-RADS category 4A: Suspicious RECOMMENDATION: Short interval 3 month follow up low dose CT chest.
== END 2022-05-26 13:22 | disposition home or self-care (01) ==
LOC: HO.CT 13:21
PROVIDERS: Visit Provider Physician Assistant Medical
DX: Z12.2 Encounter for screening for malignant neoplasm of respiratory organs (principal); F17.210 Nicotine dependence, cigarettes, uncomplicated
CPT/HCPCS: 71271; G0296

== ENCOUNTER → 2022-05-29 09:09 | Outpatient (BNVA) | payer MEDICARE, SELFPAY | PROVIDERS: PCP Nurse Practitioner Family; Referring Provider Nurse Practitioner Family; Visit Provider Internal Medicine Cardiovascular Disease | DX: I25.5 Ischemic cardiomyopathy (principal); I25.10 Atherosclerotic heart disease of native coronary artery without angina pectoris; Z79.899 Other long term (current) drug therapy | CPT/HCPCS: 93005; 99212 ==

== ENCOUNTER → 2022-06-20 07:54 | Outpatient (REF) | payer MEDICARE, SELFPAY ==
--- NOTE | ~2022-06-20 | NM_ITS ---
Exercise Myocardial perfusion study Indication: Chest pain with prior coronary artery disease to evaluate for myocardial ischemia Technique: The patient was brought in for an exercise perfusion study on 06/20/2022. Patient performed exercise as per Jan protocol and was injected 35 mCi of sestamibi was given intravenously one target HR was achieved. Images were obtained using the SPECT gamma camera interlaced with the gating device. Images were obtained in supine position. Resting perfusion study was performed on 06/21/2022. Patient was administered 35 mCi of sestamibi intravenously at rest. Images were then obtained in supine position. Images obtained with and without CT attenuation. Total DLP 101 mGy-cm. Images were processed with the software and compared side to side in short axis, horizontal long axis and vertical long axis views. Findings: The stress perfusion study showed non attenuated images show moderately to severely reduced uptake in the inferolateral and moderately reduced uptake in the mid and basal lateral wall as well as absent uptake in the basal inferior and moderate to severe reduced uptake in the mid inferior and inferoapical wall of the LV myocardium. Attenuation corrected images show mostly moderately reduced uptake in the inferolateral as well as basal and mid lateral and moderately reduced uptake in the inferior wall of the LV myocardium.. The gated study shows reduced LV systolic function with calculated LVEF of 38%. LV cavity is mildly to moderately dilated in size. The gated study shows reduced wall thickening and contraction of inferolateral, inferior and basal lateral wall of the LV myocardium . There is no transient ischemic dilation. Resting study shows no significant change in perfusion pattern compared to stress perfusion study. Gating at rest reveals inferolateral, basal and mid inferior and basal lateral wall motion abnormality with ejection fraction at 35%. The findings are consistent with mostly fixed defect in the inferolateral, basal and mid inferior and basal and mid lateral wall of the myocardium which may suggest nontransmural infarct of the severe ischemia cannot be entirely ruled out. NM/NM cardiolite stress test Impression: 1. Fixed inferolateral, basal and mid inferior and mid and basal lateral wall defect suggestive wall nontransmural infarct of the severe ischemia can possibly cause similar findings 2. Gated LVEF is 38% with stress and 35% with rest 3. Transient ischemic dilatation not present but LV cavity is dilated Stress EKG is negative for ischemia
--- NOTE | 2022-06-20 07:57 | CA_ITS ---
Acquisition Time: 2022-06-20 08:06:35 Total Exercise Time: 00:05:00 Test Indications: CP Medications: ASA ATORVASTATIN EZITIMIBE METOPROLOL XARELTO ISOSORBIDE Protocol: PIPE Max HR: 146 BPM 94% of Pred: 154 BPM Max BP: 156/082 mmHG Max Work Load: 7.0 METS Exercise stress test with exercise 5 min of Pipe protocol, achieving 94% MPHR, with request to stop due to moderate sob, no chest discomfort, with isolated PVC, with normotensive response to exercise, without EKG changes meeting criteria for ischemia. In recovery his breathing quickly improved. Nuclear images pending Test reviewed with Dr Ramirez. Referred By: Huang Orosco Overread By: CARMEN MARAVILLA
== END ==
LOC: HO.CARD 07:54
PROVIDERS: Visit Provider Internal Medicine Cardiovascular Disease
DX: R07.9 Chest pain, unspecified (principal); I25.10 Atherosclerotic heart disease of native coronary artery without angina pectoris
CPT/HCPCS: 78452; 93017; A9500

== ENCOUNTER → 2022-07-19 07:37 | Outpatient (REF) | payer MEDICARE, SELFPAY ==
--- NOTE | 2022-07-19 07:40 | CA_ITS ---
Transthoracic Echocardiogram Patient (Last, First, Middle): Mark Chamberlain P Gender: Male Date of : 1955 Age: 67 Procedure Date: 07/19/2022 Procedure Type: Transthoracic Echocardiogram Location: OP Height: 177.8 cm Weight: 108.86 kg BSA: 2.26 m2 Heart Rate: 66 bpm BP: 122 / 78 mmHg Starch Dumper: LUANA Referring MD: Huang Orosco MD Fractionation Plant Supervisor: Huang Orosco MD Symptoms: I25.5 - Ischemic cardiomyopathy Study Quality: Adequate w contrast ECG Rhythm: Sinus Conclusions: - 1.Mildly dilated left ventricle with mildly reduced LV systolic function with grade 2 diastolic dysfunction with regional wall motion abnormality suggestive underlying coronary artery disease 2. Mild aortic and mitral regurgitation 3. Normal RV systolic pressure 4. No gross pericardial effusion Findings Procedure Information Contrast agent, definity, is being given per protocol without apparent complications. Left Ventricle Mildly increased left ventricular cavity size. There is mildly increased left ventricular wall thickness. The left ventricular systolic function is mildly decreased. The visually estimated ejection fraction is between 45 50%. There is evidence of regional wall motion abnormalities. Spectral Doppler is indicative of a pseudonormal filling pattern. E/E prime ratio is >15, consistent with elevated filling pressures. Evidence suggests grade II (moderate) diastolic dysfunction. Wall Motion Rest Echo Findings The basal anterolateral and mid inferoseptal segments are hypokinetic. The inferior wall and basal inferolateral segment are akinetic. The basal inferoseptal segment is dyskinetic. All other scored wall segments showed normal motion. Right Ventricle Normal right ventricular cavity size. There is moderately decreased right ventricular systolic function. Atria The left atrium is likely dilated. There is no evidence of interatrial shunt. The right atrium is normal in size. Aortic Valve There is mild calcification of the aortic valve. There is mild thickening of the aortic valve. There is no aortic valve stenosis. There is mild aortic valve regurgitation. Mitral Valve There is mild anterior and posterior mitral leaflet thickening. There is mild mitral annular calcification. There is mild mitral valve regurgitation. There is no mitral valve stenosis. Pulmonic Valve The pulmonic valve is likely normal. There is mild pulmonic valve regurgitation. Tricuspid Valve Normal tricuspid valve structure. There is mild tricuspid valve regurgitation. The right ventricular systolic pressure is normal. The right ventricular systolic pressure is 19 mmHg. Normal right atrial pressure. There is no evidence of pulmonary hypertension. Great Vessels All visible segments of the aorta are normal in size. The pulmonary artery was not well visualized. Venous The inferior vena cava is normal in size and collapses greater than 50% with inspiration. Pericardium/Pleural There is no evidence of pericardial effusion. Prior Study Comparison Changes noted compared to prior study dated: 06/03/2021. LV function is marginally reduced Measurements 2D Linear Measurements IVSd: 1.24 0.6-0.9/0.6-1.0 cm LVIDd: 6.17 3.9-5.3/4.2-5.9 cm LVIDd Index: 2.73 2.4-3.2/2.2-3.1 cm/m2 LVIDs: 5.17 2.0-3.6 cm LVPWd: 0.66 0.7-1.1 cm LA Diam: 4.50 2.7-3.8/3.0-4.0 cm LAIDs Index: 1.99 1.5-2.3 cm/m2 LV Mass: 301.49 67-162/88-224 g LV Mass Index: 133.40 43-95/49-115 g/m2 LVOT Diam: 2.40 3.0+(-)1.3 cm 2D Systolic Function EF 4C: 49.00 >55% EF 2C: 44.60 >55% EF BiP: 46.00 >55% Mitral Valve MV Pk E: 0.99 MV PK A: 0.67 MV Decel Time: 166.00 E/A: 1.50 E'Lateral: 7.18 E'Medial: 4.46 E/E' Med: 22.30 E/E' Lat: 13.80 PHT: 48.00 MVA PHT: 4.58 Decel Marinette: 6.00 Aortic Valve AoV Pk Mikie: 1.90 AoV Mn Mikie: 1.33 AoV VTI: 0.41 AoV Pk Grad: 14.00 Aov Mn Grad: 8.00 JOSE Cont.VTI: 2.22 AI Pk Mikie: 4.41 AI Marinette: 2.67 LVOT LVOT Pk Mikie: 0.93 LVOT Mn Mikie: 0.62 LVOT VTI: 0.20 LVOT Pk Grad: 3.00 LVOT Mn Grad: 2.00 LVOT Diam: 2.40 LVOT Area: 4.52 Diastolic Function MV Pk E: 0.99 MV Pk A: 0.67 E/A: 1.50 E'Medial: 4.46 E/E' Med: 22.30 E' Laterial: 7.18 E/E' Lat: 13.80 Right Ventricle TAPSE (mm): 12.70 TVS' Mikie: 7.35 Tricuspid Valve TR Pk Mikie: 2.00 TR Pk Grad: 16.00 RA Press: 3.00 RVSP: 19.00 Great Vessels Aorta Sinus of Valsalva: 3.20 2.0-3.5 cm Ao Asc: 3.50 2.1-3.4 cm Pulmonary Valve PV Pk Mikie: 0.90 Peak PV Grad: 3.00 Updated in Other Vendor System with Status of Final Huang Orosco MD electronically signed on 07/19/2022 2:31:53 PM with status of Final
== END ==
LOC: HO.CARD 07:37
PROVIDERS: PCP Nurse Practitioner Family; Visit Provider Internal Medicine Cardiovascular Disease
DX: I25.5 Ischemic cardiomyopathy (principal)
CPT/HCPCS: 93306; Q9957

== ENCOUNTER 2022-09-01 08:02 | Outpatient (REF) | payer MEDICARE, SELFPAY ==
--- NOTE | ~2022-09-01 | MM_ITS ---
EXAMINATION: BONE DENSITOMETRY CLINICAL INDICATION: Nicotine dependence. COMPARISON: None (current study represents initial baseline exam). TECHNIQUE: Using a [employer] DXA System (software version: 13.1) manufactured by [employer], dual-energy x-ray absorptiometry was performed of the lumbar spine and left hip. The images are of good technical quality. Summary results are attached. FINDINGS: AP SPINE L1-L4: BMD 1.311 g/cm2, Z-score 0.6, T-score 0.8, normal. LEFT FEMUR, NECK: BMD 0.998 g/cm2, Z-score 0.1, T-score -0.6, normal. LEFT FEMUR, TOTAL: BMD 1.033 g/cm2, Z-score -0.3, T-score -0.5, normal. IDENTIFIED RISK FACTORS: Tobacco use (current smoker), alcohol (3 or more units per day). HISTORY OF FRACTURE: None listed. MEDICATIONS: Multivitamin. MM/XR DEXA axial skeleton IMPRESSION: 1. DIAGNOSIS: Normal bone density based on the lowest T-score value of -0.6 in the femoral neck applying World Health Organization criteria. 2. 10-YEAR FRACTURE RISK PREDICTION, FRAX: According to the guidelines, FRAX calculation should only be performed on patients in the osteopenia bone density category. Therefore, FRAX was not performed on this patient. 3. Treatment Recommendations: NOF guidelines recommend consideration for treatment in postmenopausal women and men age 50 and older presenting with the following: -A hip or vertebral (clinical or morphometric) fracture. -T-score less than or equal to -2.5 at the femoral neck or spine after appropriate evaluation to exclude secondary causes. -Low bone mass at the hip or spine and a 10-year fracture probability by FRAX of greater than or equal to 3% for hip fracture or greater than or equal to 20% for major osteoporotic fracture based on the [place] adapted WHO algorithm. 4. Other Recommendations: All treatment decisions require clinical judgment and consideration of individual patient factors, including patient preferences, comorbidities, previous drug use, risk factors not captured in the FRAX model (e.g. frailty, falls, vitamin D deficiency, increased bone turnover, interval significant decline in bone density) and possible under or overestimation of fracture risk by FRAX. FUTURE SCAN RECOMMENDATION: People with diagnosed cases of osteoporosis or at high risk for fracture should have regular bone mineral density tests. For patients eligible for Medicare, routine testing is allowed once every 2 years. The testing frequency can be increased to one year for patients who have rapidly progressing disease, those who are receiving or discontinuing medical therapy to restore bone mass, or have additional risk factors.
== END 2022-09-01 08:03 | disposition home or self-care (01) ==
LOC: HO.MAMMO 08:02
PROVIDERS: PCP Nurse Practitioner Family; Visit Provider Nurse Practitioner Family
DX: Z13.820 Encounter for screening for osteoporosis (principal); I10 Essential (primary) hypertension; E55.9 Vitamin D deficiency, unspecified; F17.200 Nicotine dependence, unspecified, uncomplicated; Z79.899 Other long term (current) drug therapy
CPT/HCPCS: 77080

== ENCOUNTER 2023-01-05 08:39 | Outpatient (REF) | payer MEDICARE, SELFPAY ==
--- NOTE | ~2023-01-05 | CT_ITS ---
EXAMINATION: LUNG CANCER SCREENING CT CHEST WITHOUT CONTRAST CLINICAL INFORMATION: Current smoker with 45 pack year history. Short interval follow-up exam. COMPARISON: 05.26.2022 TECHNIQUE: Multidetector volumetric CT imaging of the chest was obtained noncontrast using low dose screening CT technique. Axial thin section 0.625 mm reformations in soft tissue and lung windows were obtained. Sagittal and coronal reformations were obtained. Axial MIP images were also created and reviewed. This CT examination was performed using dose optimization techniques as appropriate, variously including the following: *Automated exposure control *Adjustment of mA and/or kV according to patient size (this includes techniques or standardized protocols for targeted exams where dose is matched to indication/reason for exam; i.e. extremities or head) *Use of iterative reconstruction technique TOTAL EXAM DLP: 66 mGy-cm FINDINGS: PULMONARY NODULES (see fragoso images): No suspicious pulmonary nodules. Unchanged 7.0 x 4.4 mm (6 mm mean) nodule in the right lower lobe. Stable linear nodular opacity in the right lower lobe measuring 8.5 x 3.4 mm (6 mm mean). LUNGS / PLEURA: No appreciable emphysema. No acute pneumonic process. No pleural effusion or pneumothorax. MEDIASTINUM / GIANNA: Heart normal in size without pericardial effusion. Great vessels normal caliber. No lymphadenopathy. Coronary calcifications present. Imaged thyroid gland unremarkable. CHEST WALL / AXILLA: Unremarkable. UPPER ABDOMEN: Nonobstructive 2 mm calculus, upper pole right kidney. OSSEOUS STRUCTURES: No acute or suspicious osseous abnormalities. CT/CT lung screen follow up IMPRESSION: * No evidence of pulmonary malignancy. * There are no pulmonary nodules that meet criteria for short interval follow-up at this time. ASSESSMENT: Lung RADS category: 2. Benign appearance or behavior. Nodules with a very low likelihood of becoming a clinically active cancer due to size or lack of growth. Continue annual screening with low-dose CT in 12 months. Probability of malignancy less than 1%. RECOMMENDATION: Follow up low dose CT chest in 1 year.
== END 2023-01-05 08:40 | disposition home or self-care (01) ==
LOC: HO.CT 08:39
PROVIDERS: PCP Nurse Practitioner Family; Visit Provider Physician Assistant Medical
DX: F17.210 Nicotine dependence, cigarettes, uncomplicated (principal)
CPT/HCPCS: 71250

== ENCOUNTER 2023-02-21 12:52 | Outpatient (AMB) | payer MEDICARE, SELFPAY ==
--- NOTE | 2023-02-21 12:55 | A.OFFPC_ITS ---
Vital Signs 02/21/23 12:58 Height 5 ft 10.5 in Weight 229 lb BMI 32.4 BP 110/60 Blood Pressure Location Rt brachial Position Sitting Pulse 83 Pulse Source Pulse Oximeter Pulse Oximetry (%) 98 Oxygen Delivery Method Room Air Intake Visit Reasons: Annual PE Intake Note: Patient here for physical exam. No new concerns or issues. Allergies No Known Allergies Allergy (Verified 02/21/23 12:59) Medication List - Last Reconciled 02/21/23 by DK Ramírez aspirin 81 mg PO DAILY atorvastatin 80 mg PO DAILY ezetimibe 10 mg PO DAILY 90 days isosorbide mononitrate ER 30 mg PO DAILY ketoconazole 2% 1 appl topical BID lisinopril 2.5 mg PO DAILY metoprolol succinate ER 50 mg PO DAILY multivitamin (Daily Multi-Vitamin tablet) 1 tab PO DAILY rivaroxaban (Xarelto) 2.5 mg PO BID vitamin B complex 1 tab PO DAILY Tobacco use date assessed: 08/15/22 Fall risk assessment: No Falls in past year Last assessed Fall Risk: 02/21/23 Dental Screening Dental Screen Date: 02/21/23 Did you have a dental visit in the last 12 months?: Yes Did you have a dental problem in the last 6 months where you did not have access to dental care?: No Was dental information given to patient?: Patient has dentist HPI Annual PE HPI Details Pt is here for a PE. Will order labs. Due for colon screen in March, will refer to GI. Due for PSA, will order. Denies dribbling with urination, weak stream, and frequent nocturia. Pt sees cardiology, vascular, thoracic, and dermatology. Pt smokes 1.5 packs per day and is not interested in quitting, gets LDCT scans yearly. FOR[facility]LY [facility] Medical History Bilateral carotid artery stenosis CAD (coronary artery disease) Dyslipidemia History of colon polyps Ischemic cardiomyopathy Leukocytosis Nicotine dependence, cigarettes, uncomplicated PVD (peripheral vascular disease) Surgical History History of colonoscopy (~03/2018) History of right-sided carotid endarterectomy (~10/2018) History of atherectomy (~09/2020) History of coronary artery bypass graft (~08/2016) Family History Father Stroke CVD (cardiovascular disease) Substance use disorder Mother CVD (cardiovascular disease) Substance use disorder Brother No problems noted. 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 1. Little interest or pleasure in doing things: not at all 2. Feeling down, depressed, or hopeless: not at all 3. Trouble falling or staying asleep, or sleeping too much: not at all 4. Feeling tired or having little energy: not at all 5. Poor appetite or overeating: not at all 6. Feeling bad about yourself - or that you are a failure or have let yourself or your family down: not at all 7. Trouble concentrating on things, such as reading the newspaper or watching television: not at all 8. Moving or speaking so slowly that other people could have noticed. Or the opposite - being so fidgety or restless that you have been moving around a lot more than usual: not at all 9. Thoughts that you would be better off or of hurting yourself in some way: not at all Total score: 0 Depression Screening Interpretation: Negative Depression Screening Done: Yes 60479 - PHQ-9 Billing: Yes Source: Developed by Drs. Arcenio Hobbs, Hawa Hancock, Taran Sauceda and colleagues, with an educational elsy from [employer]. Thrive Questionnaire Date Thrive assessed: 04/13/22 I am a: Patient What is your living situation today?: I have a steady place to live Within the past 12 months, did the food you bought not last and you didn't have the money to get more?: Never true Within the past 12 months, did you worry whether your food would run out before you got money to buy more?: Never true Do you have trouble paying for medicines?: No Do you have trouble getting transportation to medical appointments?: No Do you have trouble paying your heating and electricity bill?: No Do you have trouble taking care of your child, family member or friend?: No Do you have trouble with day-to-day activities such as bathing, preparing meals, shopping, managing finances, etc.?: No Are you currently unemployed and looking for a job?: No Are you interested in more education?: No AUDIT C Alcohol Use Questionnaire (AUDIT-C) 1. How often do you have a drink containing alcohol?: 4 or more times a week 2. How many drinks containing alcohol do you have on a typical day when you are drinking?: 7 to 9 3. How often do you have six or more drinks on one occasion?: Weekly Total Score: 10 Score Reviewed/Action Taken: Yes ISHAN-7 AMB Questionnaire ISHAN-7 Date ISHAN - 7 assessed: 02/21/23 Feeling nervous, anxious, or on edge: 0 = Not at all Not being able to stop or control worryin = Not at all Worrying too much about different things: 0 = Not at all Trouble relaxin = Not at all Being so restless that it is hard to sit still: 0 = Not at all Becoming easily annoyed or irritable: 0 = Not at all Feeling afraid as if something awful might happen: 0 = Not at all Total ISHAN-7 score (0-4 normal; 5-9 mild; 10-14 moderate; 15-21 severe): 0 Source: Developed by Drs. Arcenio Hobbs, Hawa Hancock, Taran Sauceda and colleagues, with an educational elsy from [employer]. ISHAN-7 Assessment Billing ISHAN-7 Assessment Tool: ISHAN-7 Assessment 36336 Review of Systems Const Denies chills and Denies fever(s) Eyes Denies blurry vision ENT Denies vertigo, Denies dizziness and Denies sore throat Card Denies chest pain at rest, Denies chest pain with activity, Denies diaphoresis, Denies dyspnea and Denies dyspnea on exertion Resp Denies cough, Denies dyspnea, Denies dyspnea on exertion and Denies wheezing GI Denies abdominal pain, Denies melena, Denies hematochezia, Denies constipation, Denies diarrhea and Denies loose stools Denies hematuria Musc Denies numbness and Denies tingling Skin/Breast Denies lesions Neuro Denies vertigo, Denies dizziness, Denies numbness and Denies tingling Psych Denies anxiety, Denies depression, Denies homicidal ideation, Denies suicidal ideation and Denies other (substance abuse) Aller/Immun Denies wheezing Physical exam (Primary Care) Vital Signs: Last Vital Signs Pulse 83 02/21/23 12:58 BP 110/60 02/21/23 12:58 Pulse Ox 98 02/21/23 12:58 Oxygen Delivery Method Room Air 02/21/23 12:58 BMI result Body Mass Index 32.4 Tobacco/Smoking Status: Tobacco use Status Tobacco use date assessed 08/15/22 02/21/23 12:56 Patient Tobacco Use Status Current everyday Tobacco 02/21/23 12:56 e-Cigarette/Vaping Use Never Used 02/21/23 12:56 PHQ-9: PHQ-9 Score PHQ-9: Total score 0 02/21/23 13:50 Depression Screening Interpretation: Negative Thrive Assessment: Date of Thrive Assessment Date Thrive assessed 04/13/22 02/21/23 12:56 Const General: cooperative Nutritional Appearance: obese Orientation/consciousness: patient oriented x3 HENMT Head: Yes normal to inspection, Yes normocephalic and Yes atraumatic Ears: TM's normal bilaterally Eyes General: appearance normal, both eyes and all related structures Alignment and Position: alignment normal and position normal Neck Neck: Yes normal visual inspection and Yes no lymphadenopathy Thyroid: Thyroid normal Resp Other: coarse wheezes throughout, though moving air bilat Effort & Inspection: normal respiratory effort Cardio Rate: regular rate Rhythm: regular rhythm Heart sounds: S1 normal heart sound present, S2 normal heart sound present and Murmur heart sound present systolic GI Palpation (GI): Soft to palpation and nontender Auscultation: normal bowel sounds Male General Exam: Yes normal external exam Penis: normal penis Scrotum: scrotum normal, testes descended bilaterally and no inguinal hernias Testes: no testicular mass Skin Rashes: no rashes Neuro General: patient oriented x3, moves all extremities, no focal motor deficits and deep tendon reflexes 2+ bilaterally Romberg Test: Negative Psych Appearance: grossly normal Mental Status: mental status grossly normal Speech and movement: Normal speech and movement present Affect: normal affect Attitude: cooperative Thought process: Normal thought process present Thought content: Normal thought content present Insight: Good insight present (Psych) Judgement: Good judgement present (Psych) Assessment and Plan Assessment & Plan (1) Physical exam: Code(s): Z00.00 - Encounter for general adult medical examination without abnormal findings Plan: Labs ordered (2) Screening PSA (prostate specific antigen): Code(s): Z12.5 - Encounter for screening for malignant neoplasm of prostate Plan: PSA ordered (3) Screening for colon cancer: Code(s): Z12.11 - Encounter for screening for malignant neoplasm of colon Plan: Referred to GI Plan The patient agreed to the use of a lpn or medical assistant for this encounter. Scribed for JOSE Meyer-BC by Daksha Santana lpn or medical assistant, on 02/21/2023 at 13:20 EST. Orders: Orders Complete Blood Count Auto Diff Today Z00.00 - Encounter for general adult medical examination without abnormal findings TSH reflex Free T4 Today Z00.00 - Encounter for general adult medical examination without abnormal findings UA CC w/rflx Micro + Cult Today Z00.00 - Encounter for general adult medical examination without abnormal findings Comprehensive [place]. Panel Fast Today Z00.00 - Encounter for general adult me dical examination without abnormal findings Lipid Panel Today Z00.00 - Encounter for general adult medical examination without abnormal findings Prostate Specific Antigen Scr Today Z12.5 - Encounter for screening for malignant neoplasm of prostate Referrals Gastroenterology Referral Z12.11 - Encounter for screening for malignant neoplasm of colon Coding Level of Care Code Est Pt Prev Care >65y(93710) Diagnoses Physical exam Z00.00 Screening PSA (prostate specific antigen) Z12.5 Screening for colon cancer Z12.11 Additional Codes ISHAN-7 Assessment Billing - ISHAN-7 Assessment Tool: ISHAN-7 Assessment [id number] ([id number])
[2023-02-21 12:58] VITALS: BP 110/60; PULSE 83; O2SAT 98; BMI 32.4
== END 2023-02-21 13:39 | disposition home or self-care (01) ==
PROVIDERS: Visit Provider Nurse Practitioner Family
DX: Z00.00 Encounter for general adult medical examination without abnormal findings (principal); Z12.5 Encounter for screening for malignant neoplasm of prostate; Z12.11 Encounter for screening for malignant neoplasm of colon
CPT/HCPCS: 99397

== ENCOUNTER 2023-04-02 07:07 | Outpatient (AMB) | payer MEDICARE, SELFPAY ==
--- NOTE | 2023-04-02 07:24 | MHC.PC.OV ---
Intake Visit Reasons: discuss Chantix-Iphone Allergies No Known Allergies Allergy (Verified 02/21/23 12:59) Tobacco use date assessed: 08/15/22 HPI discuss Chantix-Iphone HPI Details Pt is interested in smoking cessation. He has tried several methods in the past including nicotine patches and gum, with little effect. Will send chantix. Pt understands potential side effects including SI and vivid dreams. Pt c/o right hip and leg pain. He reports that this is worse with movement. Will order hip XR, though ? if symptoms are related to claudication. Denies any popping or clicking. Pt is following up with vascular, has an US next month. Denies fever, chills, and dizziness. Encouraged pt to have labs drawn. Pt follows up with thoracic as well. [facility] Medical History CAD (coronary artery disease) Ischemic cardiomyopathy Bilateral carotid artery stenosis PVD (peripheral vascular disease) Dyslipidemia History of colon polyps Nicotine dependence, cigarettes, uncomplicated Leukocytosis Surgical History History of colonoscopy (~03/2018) History of right-sided carotid endarterectomy (~10/2018) History of atherectomy (~09/2020) History of coronary artery bypass graft (~08/2016) Family History Father Stroke CVD (cardiovascular disease) Substance use disorder Mother CVD (cardiovascular disease) Substance use disorder Brother No problems noted. 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 Arcenio Hobbs, Hawa Hancock, Taran Sauceda and colleagues, with an educational elsy from [employer]. Review of Systems Const Reports as per HPI Physical exam (Primary Care) Tobacco/Smoking Status: Tobacco use Status Tobacco use date assessed 08/15/22 04/02/23 07:30 Patient Tobacco Use Status Current everyday Tobacco 04/02/23 07:30 e-Cigarette/Vaping Use Never Used 04/02/23 07:30 Thrive Assessment: Date of Thrive Assessment Date Thrive assessed 04/13/22 04/02/23 07:30 Const General: cooperative Orientation/consciousness: patient oriented x3 Neuro General: patient oriented x3 Psych Appearance: grossly normal Mental Status: mental status grossly normal Speech and movement: Clear speech present Affect: normal affect Attitude: cooperative Thought process: Normal thought process present Thought content: Normal thought content present Insight: Good insight present (Psych) Judgement: Good judgement present (Psych) Telehealth Telehealth Location of provider rendering services: practice address Location of patient: address on file Patient Identification confirmed using: Name, : Yes Telehealth method: video Patient verbally consented to treatment: Yes Patient verbally consented to billing insurance company: Yes Patient informed of any privacy concerns related to visit: Yes Minutes spent on Phone/Video with Pt.: 10 Assessment and Plan Assessment & Plan (1) Right leg pain: Code(s): M79.604 - Pain in right leg (2) Right hip pain: Code(s): M25.551 - Pain in right hip Plan: XR ordered (3) Smoker: Code(s): F17.200 - Nicotine dependence, unspecified, uncomplicated Plan: starting chantix Plan The patient agreed to the use of a front office medical assistant for this encounter. Scribed for JOSE Meyer-CANDIDO by Daksha Santana front office medical assistant, on 04/02/2023 at 07:20 EST. Orders: Orders XR hip RT min 2V Today M25.551 - Pain in right hip, M79.604 - Pain in right leg Medications: New varenicline (Chantix Starting Month Box) PO PER PKG DIR 53 ea 0RF Coding Level of Care Code Tele Est Pt Level 3 (85370) Diagnoses Right leg pain M79.604 Right hip pain M25.551 Smoker F17.200
== END 2023-04-02 08:03 | disposition home or self-care (01) ==
LOC: HO.HMGC 07:07
PROVIDERS: PCP Nurse Practitioner Family; Visit Provider Nurse Practitioner Family
DX: M79.604 Pain in right leg (principal); M25.551 Pain in right hip; F17.210 Nicotine dependence, cigarettes, uncomplicated
CPT/HCPCS: 99213

== ENCOUNTER 2023-04-30 09:16 | Outpatient (REF) | payer MEDICARE, SELFPAY ==
--- NOTE | ~2023-04-30 | US_ITS ---
EXAMINATION: US EXTRACRANIAL CAROTID DUPLEX, BILATERAL CLINICAL INFORMATION: Stenosis of the carotid arteries, right carotid endarterectomy on 11/04/2018 COMPARISON: Carotid duplex on 07/26/2021 TECHNIQUE: Real-time ultrasound and Doppler techniques (integrating B-mode 2-D vascular images, Doppler spectral analysis and color-flow Doppler imaging) were utilized to interrogate the extracranial carotid arteries, the vertebral arteries and proximal subclavian arteries bilaterally. The degree of stenosis is determined by criteria similar to NASCET. FINDINGS: Right Side: 1. There is mild atherosclerotic plaque seen in the bifurcation/proximal ICA region. 2. The common carotid artery PSV proximally is 94 cm/s and distally 92 cm/s. 3. The proximal internal carotid artery velocities are 90 cm/s systolic and 23 cm/s diastolic. 4. The proximal external carotid artery PSV is 208 cm/s. 5. The vertebral artery shows antegrade flow. 6. The subclavian artery waveforms are normal. Left Side: 1. There is mild atherosclerotic plaque seen in the bifurcation/proximal ICA region. 2. The common carotid artery PSV proximally is 90 cm/s and distally 69 cm/s. 3. The proximal internal carotid artery velocities are 108 cm/s systolic and 35 cm/s diastolic. 4. The proximal external carotid artery PSV is 327 cm/s. 5. The vertebral artery shows antegrade flow. 6. The subclavian artery waveforms are normal. US/US carotid duplex BI IMPRESSION: 1. RIGHT: Minimal, non-hemodynamically significant stenosis of the proximal right internal carotid artery corresponding to a 0-49% stenosis by velocity criteria. 2. LEFT: Minimal, non-hemodynamically significant stenosis of the proximal left internal carotid artery corresponding to a 0-49% stenosis by velocity criteria. 3. Elevated velocities in the bilateral external carotid arteries suggesting stenosis, similar to 2021. 4. There is no change in the category severity of disease when compared to the previous study dated 07/26/2021.
== END 2023-04-30 09:17 | disposition home or self-care (01) ==
LOC: HO.US 09:16
PROVIDERS: PCP Nurse Practitioner Family; Visit Provider Surgery Vascular Surgery
DX: I65.23 Occlusion and stenosis of bilateral carotid arteries (principal)
CPT/HCPCS: 93880

== ENCOUNTER 2023-05-01 07:55 | Outpatient (REF) | payer MEDICARE, SELFPAY ==
--- NOTE | ~2023-05-01 | XR_ITS ---
EXAMINATION: XR HIP, RIGHT CLINICAL INFORMATION: Pain. COMPARISON: None available. TECHNIQUE: Two views of the right hip. FINDINGS: No fracture or malalignment. Moderate joint space narrowing and subcortical sclerosis of the right hip. Nonspecific surgical clip projecting over the right femoral soft tissues. Pelvic phleboliths. Moderate to severe vascular calcifications. XR/XR hip RT min 2V IMPRESSION: No acute fracture or malalignment. Moderate degenerative osteoarthritis of the right hip.
[2023-05-01 11:12] LABS: MANUAL DIFF FLAG NO
[2023-05-01 11:32] LABS: Basophils Absolute Auto 0.1 X10*3/uL (0.0-0.2); Basophils Percent Auto 0.8 % (0-2); Eosinophils Absolute Auto 0.5 X10*3/uL (0.0-0.4); Eosinophils Percent Auto 4.5 % (0-4); Hematocrit 43.9 % (42.0-52.0); Hemoglobin 15.7 g/dl (14.0-18.0); Imm Gran Abs Auto 0.04 X10*3/uL (0.00-0.03); Imm Gran Pct Auto 0.4 % (0.0-0.4); Lymphocytes Absolute Auto 2.3 X10*3/uL (1.2-4.9); Lymphocytes Percent Auto 21.9 % (20-40); Mean Corpuscular HGB Conc 35.8 g/dl (31.0-36.0); Mean Corpuscular Hemoglobin 33.6 pg (27.0-33.0); Mean Platelet Volume 10.9 fL (9.4-12.4); Monocytes Absolute Auto 0.6 X10*3/uL (0.1-1.2); Monocytes Percent Auto 5.8 % (2-11); Neutrophils Percent Auto 66.6 % (45-73); Platelet Count 223 X10*3/uL (160-400); Red Blood Count 4.67 X10*6/uL (4.60-5.80); Red Cell Distribution Width 12.1 % (11.0-16.0); White Blood Count 10.4 X10*3/uL (4.8-10.8)
[2023-05-01 11:36] LABS: Appearance Urine Clear; Color Urine Yellow; Glucose Urine UA Negative (Negative); Leukocyte Esterase Urine Negative (Negative); Nitrite Urine Negative (Negative); PH 5.5 (5.0-9.0); Specific Gravity - Urine 1.015 (1.005-1.025); Urine Blood Negative (Negative); Urine Ketones Negative (Negative); Urine Protein Negative (Neg-Trace)
[2023-05-01 12:01] LABS: Alanine Aminotransferase 50 U/L (0-40); Alkaline Phosphatase 69 U/L (39-117); Anion Gap 14 (12-20); Aspartate Amino Transferase 34 U/L (5-37); Bilirubin Total 0.4 mg/dL (0.0-1.0); Blood Urea Nitrogen 11 mg/dL (9-16); Calcium 9.1 mg/dL (8.4-10.2); Carbon Dioxide 27 mmol/L (22-29); Chloride 104 mmol/L (96-108); Cholesterol 100 mg/dL (<200); Estimated Glomerular Filt Rate > 60; Glucose Fasting 97 mg/dL (60-99); HDL Cholesterol 42 mg/dL (>40); LDL Cholesterol Calculated 49 mg/dL (<100); Potassium 4.8 mmol/L (3.3-5.1); Sodium 140 mmol/L (135-145); Total Protein 6.7 g/dL (6.5-8.0); Triglycerides 45 mg/dL (<150)
[2023-05-01 12:04] LABS: Prostate Specific Antigen Scr 0.58 ng/mL (<0.05-4.0)
[2023-05-01 13:23] LABS: TSH reflex Free T4 2.24 uIU/mL (0.32-4.0)
== END 2023-05-01 07:56 | disposition home or self-care (01) ==
LOC: HO.HMGCX 07:55
PROVIDERS: PCP Nurse Practitioner Family; Visit Provider Nurse Practitioner Family
DX: Z00.00 Encounter for general adult medical examination without abnormal findings (principal); I10 Essential (primary) hypertension; M25.551 Pain in right hip; M79.604 Pain in right leg; Z12.5 Encounter for screening for malignant neoplasm of prostate
CPT/HCPCS: 36415; 73502; 80053; 80061; 81003; 84153; 84443; 85025

== ENCOUNTER 2023-05-08 07:47 | Outpatient (REF) | payer MEDICARE, SELFPAY ==
--- NOTE | ~2023-05-08 | US_ITS ---
EXAMINATION: Noninvasive assessment of the bilateral lower extremities with ARTERIAL DUPLEX and ANKLE BRACHIAL INDICES (ABIs). CLINICAL INFORMATION: Peripheral vascular disease, history of left superficial femoral artery stent TECHNIQUE: Duplex Doppler techniques with waveform analysis and measurement of velocities in the bilateral common femoral, profunda femoris, superficial femoral, popliteal and tibial arteries were performed. Additionally, ankle pulse volume recordings, ankle pressure measurements and ankle brachial indices were obtained of the lower extremity arterial system bilaterally. The study was performed only at rest. COMPARISON: 07/26/2021 FINDINGS: DIRECT DUPLEX DOPPLER FINDINGS: RIGHT LEG: Common femoral artery: 236 cm/s, phasicity: Triphasic Profunda femoris artery: 196 cm/s, phasicity: Biphasic Superficial femoral artery (proximal): 154 cm/s, phasicity: Triphasic Superficial femoral artery (mid): 188 cm/s, phasicity: Triphasic Superficial femoral artery (distal): 94.5 cm/s, phasicity: Triphasic Popliteal artery: 62.0 cm/s, phasicity: Triphasic. Scattered calcified plaque Posterior tibial artery: 91.4 cm/s, phasicity: Triphasic Peroneal artery: 63.0 cm/s, phasicity: Biphasic Anterior tibial artery: 35.0 cm/s, phasicity: Biphasic Dorsalis pedis artery: 14.7 cm/s, phasicity:Monophasic LEFT LEG: Common femoral artery: 128 cm/s, phasicity: Biphasic Profunda femoris artery: 144 cm/s, phasicity: Triphasic Superficial femoral artery (proximal): 53.4 cm/s, phasicity: Triphasic Superficial femoral artery (mid): Stent is present Proximal stent: 83.7 cm/s, phasicity: Triphasic Mid stent: 129 cm/s, phasicity: Triphasic Distal stent: 129 cm/s, phasicity: Triphasic Superficial femoral artery (distal): 42.8 cm/s, phasicity: Biphasic Popliteal artery: 37.2 cm/s, phasicity: Monophasic Posterior tibial artery: 82.4 cm/s, phasicity: Monophasic Peroneal artery: 55.8 cm/s, phasicity: Monophasic Anterior tibial artery: 42.3 cm/s, phasicity: Monophasic Dorsalis pedis artery: 13.6 cm/s, phasicity: Monophasic ANKLE-BRACHIAL INDEX: Right: 1.03?, previously 1.13 Left: 0.68, previously 0.96 ANKLE PRESSURES: Right: PT 121, DP 111 Left: PT?80, DP?63 ANKLE PVR WAVEFORMS: Right: Abnormal Left: Abnormal US/US arterial duplex LE BI IMPRESSION: Right leg: Normal ankle brachial index with mildly dampened PVR waveform. Patent arterial flow on duplex Doppler Left leg: Moderately decreased ankle brachial index. Dampened arterial waveforms seen within the left popliteal artery and below-knee runoff vessels as described above. Stent in the mid to distal left superficial femoral artery appears patent with normal velocities. Suspect that there is a nonvisualized stenosis between the stent and popliteal artery. ZULLY Reference: - >1.4 = calcified vessels - 0.9 - 1.4 = normal - no significant arterial disease - 0.7 - 0.89 = mild peripheral arterial disease - 0.51 - 0.69 = moderate peripheral arterial disease - ? 0.50 = severe peripheral arterial disease - < .30 = critical arterial disease
== END 2023-05-08 07:48 | disposition home or self-care (01) ==
LOC: HO.US 07:47
PROVIDERS: PCP Nurse Practitioner Family; Visit Provider Surgery Vascular Surgery
DX: I70.213 Atherosclerosis of native arteries of extremities with intermittent claudication, bilateral legs (principal)
CPT/HCPCS: 93923; 93925

== ENCOUNTER 2023-05-17 07:43 | Outpatient (REF) | payer MEDICARE, SELFPAY ==
--- NOTE | ~2023-05-17 | US_ITS ---
EXAMINATION: US ABDOMEN COMPLETE CLINICAL INFORMATION: Abnormal levels of other serum enzymes. COMPARISON: CTA abdominal aorta with runoff 04/15/2020. TECHNIQUE: Real-time imaging of the abdominal viscera. FINDINGS: PANCREAS: Normal. ABDOMINAL AORTA: Atherosclerotic calcifications of the distal aorta noted. INFERIOR VENA CAVA: Visualized portions are normal. LIVER: The liver is normal in size. The liver contour is normal. Diffuse increased echogenicity of liver parenchyma. No focal hepatic lesion. There is no intrahepatic biliary duct dilatation seen. GALLBLADDER: Normal. The gallbladder is physiologically distended without evidence of stones, sludge, polyps, wall thickening or pericholecystic fluid. COMMON BILE DUCT: Normal in caliber measuring 0.3 cm in diameter. RIGHT KIDNEY: Normal. No hydronephrosis. No renal calculi or focal parenchymal lesions. The kidney measures 10.6 cm in maximum dimension. LEFT KIDNEY: Normal. No hydronephrosis. No renal calculi or focal parenchymal lesions. The kidney measures 12.0 cm in maximum dimension. SPLEEN: Normal. The spleen measures 9.4 cm in maximum dimension. FREE FLUID: None. US/US abdomen complete IMPRESSION: Increased hepatic echogenicity which can be seen in the setting of hepatic steatosis or underlying liver disease.
[2023-05-17 12:08] LABS: HBS Num1 0.44 mIU/mL (0-7.99); HBc Num1 0.11 S/CO (0.00-0.79); HBsAGNum1 0.32 S/CO (0.00-0.99); Hepatitis A Antibody IgM 0.13 Index (0-0.79); Hepatitis B Core Antibody Nonreactive (Nonreactive); Hepatitis B Surface Antigen Negative (Negative); ~Hepatitis A Antibody IgM Nonreactive (Nonreactive); ~Hepatitis B Surface Antibody NONREACTIVE (Nonreactive)
[2023-05-17 12:17] LABS: ~HepC Num1 0.17 S/CO (0.00-0.79); ~Hepatitis C Antibody Nonreactive (Nonreactive)
== END 2023-05-17 07:44 | disposition home or self-care (01) ==
LOC: HO.HMGCX 07:43
PROVIDERS: PCP Nurse Practitioner Family; Visit Provider Nurse Practitioner Family
DX: Z00.00 Encounter for general adult medical examination without abnormal findings (principal); R74.8 Abnormal levels of other serum enzymes; I10 Essential (primary) hypertension
CPT/HCPCS: 36415; 76700; 86704; 86706; 86709; 86803; 87340

== ENCOUNTER 2023-05-24 09:55 | Outpatient (AMB) | payer MEDICARE, SELFPAY ==
[2023-05-24 09:55] VITALS: BP 120/60; BMI 31.4
--- NOTE | 2023-05-24 09:55 | MHC.OFFVIS ---
Intake Vital Signs 05/24/23 09:55 05/24/23 10:09 Height 5 ft 10.5 in Weight 222 lb BMI 31.4 BP 120/60 108/68 Blood Pressure Location Rt brachial Lt brachial Position Sitting Sitting Intake Visit Reasons: 1 yr follow up carotid & Art US Intake Note: 1 yr follow up carotid stenosis w/ hx of R CEA 11/04/18 s/p carotid US 04/30/23 and PAD w/ hx of Left Angio 2020 (diagnostic & Stent placement) s/p Arterial US 05/08/23. Pt states his legs are tiring out more quickly than before, states he is not exercising as much as before. No issues otherwise Accompanied by: Self / Same As Patient Allergies No Known Allergies Allergy (Verified 05/24/23 10:03) HPI 1 yr follow up carotid & Art US HPI Details Very pleasant 67-year-old gentleman presents for surveillance follow-up regarding his carotids and lower extremities. He reports no significant interval issues. He has been doing fairly well. Does report that his legs do tire a little bit sooner but is able to walk several blocks with no difficulty. He is able to carry out all his activities of daily living. In addition his brother is scheduled for carotid endarterectomy on Sunday. [facility] Medical History Fatty liver CAD (coronary artery disease) Ischemic cardiomyopathy Bilateral carotid artery stenosis PVD (peripheral vascular disease) Dyslipidemia History of colon polyps Nicotine dependence, cigarettes, uncomplicated Leukocytosis Surgical History History of colonoscopy (~03/2018) History of right-sided carotid endarterectomy (~10/2018) History of atherectomy (~09/2020) History of coronary artery bypass graft (~08/2016) Family History Father Stroke CVD (cardiovascular disease) Substance use disorder Mother CVD (cardiovascular disease) Substance use disorder Brother No problems noted. 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 Current occupational exposures/hazards: Yes Cognitive needs: No Hearing needs: No Vision needs: No Review of Systems Const All systems reviewed & are unremarkable except as noted in HPI and below Reports no additional complaints ENT Reports Normal hearing present Card Denies chest pain, Denies chest pain at rest, Denies chest pain with activity and Denies pedal edema Resp Denies cough GI Denies abdominal pain Musc Denies abnormal gait, Denies muscle cramps and Denies radiating pain into limb Skin/Breast Denies skin ulcer and Denies wounds Neuro Reports Normal hearing present and Denies abnormal gait Psych Reports no additional complaints Physical Exam Vital Signs: Last Vital Signs BP 108/68 05/24/23 10:09 BMI result Body Mass Index 31.4 Const General: cooperative, healthy appearing and comfortable Orientation/consciousness: oriented to person, oriented to place and oriented to time HEENT Head: Yes normal to inspection Neck Neck: Yes normal visual inspection Carotids: no bruits Chest Chest palpation & inspection: normal inspection of the chest Resp Effort & Inspection: normal respiratory effort and able to speak in complete sentences Auscultation: clear to auscultation bilaterally, no crackles, no rales, no rhonchi and no wheezes Cardio Rate: regular rate Rhythm: regular rhythm Heart sounds: S1 normal heart sound present and S2 normal heart sound present Bruits: no carotid bruits Peripheral pulses: Peripheral pulses 2+ throughout GI Inspection: Yes normal to inspection Skin Wounds: no wounds Hair: normal Neuro General: oriented to person, oriented to place and oriented to time Cranial nerves: Yes CN's II-XII intact bilaterally and Yes Normal hearing present Cognition (Neuro): normal cognition Motor exam (neuro): 5/5 motor strength present throughout Extrem Other: venous exam: No significant superficial varicosities or spider telangiectasias, minimal edema General: No clubbing, No cyanosis and No edema Psych Appearance: grossly normal Mental Status: mental status grossly normal Speech and movement: Normal speech and movement present Results Reviewed Results Reviewed: Carotid testing dated 04/30/2023 demonstrates bilateral 0-49% stenosis Lower extremity arterial testing dated 05/08/2023 demonstrates ZULLY on the right of 1.03 and on the left 0.68 with a patent stent. Of note this is a decrease from the prior ZULLY which was nearly 0.96. Assessment & Plan Assessment & Plan (1) PVD (peripheral vascular disease): Comment: 04/27/2020 - diagnostic angiogram at [facility]; 09/29/2020- left SFA atherectomy with stent placement Code(s): I73.9 - Peripheral vascular disease, unspecified Plan: In short patient has stable claudication and stent appears patent. I did review the pathophysiology of peripheral vascular disease with the patient. In addition we did discuss routine conservative measures including a healthy diet and the importance of exercise and ambulation. We did discuss risk factor modification. The patient will continue to to follow-up with surveillance follow-up in approximately 1 year. Thank you for allowing us to participate in this patient's care. If there are any questions or concerns please do not hesitate to contact us. (2) Bilateral carotid artery stenosis: Comment: 11/04/2018 - right carotid endarterectomy Code(s): I65.23 - Occlusion and stenosis of bilateral carotid arteries Plan: In short patient has asymptomatic carotid disease. We have reviewed signs and symptoms of a stroke. We also discussed risk factor modification inclusive a healthy diet low in cholesterol. The patient will follow up with us with surveillance ultrasound of the carotids 1 year. Should there be any changes or signs or symptoms of a stroke we will be happy to see them back sooner. Thank you for allowing us to participate in this patient's care. If there are any questions or concerns please do not hesitate to contact us. Orders: Orders US carotid duplex BI 1 Year I65.23 - Occlusion and stenosis of bilateral carotid arteries US arterial duplex LE BI 1 Year I65.23 - Occlusion and stenosis of bilateral carotid arteries Coding Level of Care Code Est Pt Level 4 (07383) Diagnoses PVD (peripheral vascular disease) I73.9 Bilateral carotid artery stenosis I65.23
[2023-05-24 10:09] VITALS: BP 108/68
== END 2023-05-24 10:48 | disposition home or self-care (01) ==
PROVIDERS: PCP Nurse Practitioner Family; Visit Provider Surgery Vascular Surgery
DX: I73.9 Peripheral vascular disease, unspecified (principal); I65.23 Occlusion and stenosis of bilateral carotid arteries
CPT/HCPCS: 99213

== ENCOUNTER → 2023-05-24 09:55 | Outpatient (BNVA) | payer MEDICARE, SELFPAY | PROVIDERS: PCP Nurse Practitioner Family; Visit Provider Surgery Vascular Surgery | DX: I73.9 Peripheral vascular disease, unspecified (principal); I65.23 Occlusion and stenosis of bilateral carotid arteries | CPT/HCPCS: 99212 ==

== ENCOUNTER 2023-05-31 09:01 | Outpatient (AMB) | payer MEDICARE, SELFPAY ==
--- NOTE | 2023-05-31 09:13 | MHC.OFFVIS ---
Intake Vital Signs 05/31/23 09:24 Height 5 ft 10 in Weight 233 lb 3.985 oz BMI 33.5 BP 120/70 Blood Pressure Location Lt brachial Position Sitting Pulse 88 Pulse Source Monitor Intake Visit Reasons: 1 yr f/u after echo Intake Note: one year follow up with EKG Allergies No Known Allergies Allergy (Verified 05/24/23 10:03) Medication List - Last Reconciled 05/31/23 by Huang Orosco MD aspirin 81 mg PO DAILY atorvastatin 80 mg PO DAILY ezetimibe 10 mg PO DAILY 90 days isosorbide mononitrate ER 30 mg PO DAILY ketoconazole 2% 1 appl topical BID lisinopril 2.5 mg PO DAILY metoprolol succinate ER 50 mg PO DAILY multivitamin (Daily Multi-Vitamin tablet) 1 tab PO DAILY rivaroxaban (Xarelto) 2.5 mg PO BID varenicline (Chantix Starting Month Box) PO PER PKG DIR vitamin B complex 1 tab PO DAILY HPI HPI Comments History of Present Illness Details Mark comes for follow-up. No new cardiac symptoms to report. Continues to have symptoms of right lower extremity claudication but intermittently. He denies any episodes of exertional chest pain. Denies any worsening shortness of breath. No orthopnea, PND, leg edema. Takes all his medications. Last LDL was well optimized. No bleeding issues or neurologic events. He wants to quit smoking but is currently smoking about a pack a day. [facility] Medical History Fatty liver CAD (coronary artery disease) Ischemic cardiomyopathy Bilateral carotid artery stenosis PVD (peripheral vascular disease) Dyslipidemia History of colon polyps Nicotine dependence, cigarettes, uncomplicated Leukocytosis Surgical History History of colonoscopy (~03/2018) History of right-sided carotid endarterectomy (~10/2018) History of atherectomy (~09/2020) History of coronary artery bypass graft (~08/2016) Family History Father Stroke CVD (cardiovascular disease) Substance use disorder Mother CVD (cardiovascular disease) Substance use disorder Brother No problems noted. 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 Current occupational exposures/hazards: Yes Cognitive needs: No Hearing needs: No Vision needs: No Review of Systems Const Denies chills, Denies fatigue, Denies fever(s), Denies frequent falls, Denies weakness, Denies weight gain and Denies weight loss ENT Denies dizziness Card Denies chest pain, Denies leg edema, Denies lightheadedness, Denies palpitations, Denies dyspnea, Denies dyspnea on exertion, Denies orthopnea and Denies other (loss of consciousness) Resp Denies cough, Denies dyspnea and Denies dyspnea on exertion GI Denies hematochezia and Denies change in stool character Musc Denies abnormal gait, Denies muscle weakness, Denies numbness, Denies radiating pain into limb and Denies tingling Neuro Denies abnormal gait, Denies dizziness, Denies frequent falls, Denies numbness, Denies tingling and Denies weakness Endo Denies fatigue and Denies palpitations Physical Exam Vital Signs: Last Vital Signs Pulse 88 05/31/23 09:24 BP 120/70 05/31/23 09:24 BMI result Body Mass Index 33.5 Const General: cooperative, comfortable, no acute distress, alert and awake Nutritional Appearance: obese Orientation/consciousness: patient oriented x3 Limitations: no limitations Neck Neck: Yes trachea midline and Yes supple Resp Effort & Inspection: normal respiratory effort Auscultation: clear to auscultation bilaterally and diminished lung sounds Cardio Jugular venous distension: no JVD Palpation: normal PMI Rate: regular rate Rhythm: regular rhythm Heart sounds: S1 normal heart sound present, S2 normal heart sound present and Other heart sounds present (S4 present) Peripheral pulses: Peripheral pulses 2+ throughout Skin General skin exam: no rashes or lesions noted Neuro General: patient oriented x3 and no focal motor deficits Extrem General: Yes no clubbing, cyanosis or edema Psych Appearance: grossly normal Office Procedures EKG Details: EKG shows normal sinus rhythm with left atrial enlargement with right bundle-branch block and inferior infarct with PVCs [id number], Complete Assessment & Plan Assessment & Plan (1) Ischemic cardiomyopathy: Code(s): I25.5 - Ischemic cardiomyopathy Plan: Mild ischemic cardiomyopathy without signs or symptoms of congestive heart failure. These were discussed with him. Follow-up echocardiogram in 6 weeks time. Continue current neurohormonal modulation with metoprolol and lisinopril therapy. Aggressive blood pressure control was discussed. Avoidance of cardiotoxic agent was discussed. Advised to call me with any new symptoms. (2) CAD (coronary artery disease): Code(s): I25.10 - Atherosclerotic heart disease of [place] coronary artery without angina pectoris Plan: Diffuse significant atherosclerotic disease given his multiple risk factors. Continue aggressive risk factor modification. Currently on low-dose aspirin therapy as well as low-dose anticoagulant therapy. He is doing well with the same. Continues to have symptoms of right lower extremity claudication with abnormal right lower extremity ultrasound being followed by vascular surgery. Blood pressure is currently well optimized. He is again interested in smoking cessation and would suggest him to start on Chantix brand name only therapy. Continue high-intensity statin and ezetimibe therapy with extremely well optimized LDL cholesterol. Follow up in the clinic in 1 year's time, sooner p.r.n.. Thank you for allowing me to partake in his care Medications: New Chantix Starting Month Box (varenicline) PO PER PKG DIR 53 ea 0RF NS Discontinued varenicline (Chantix Starting Month Box) Discontinued Reason: Doctor's Order PO PER PKG DIR 53 ea 0RF Coding Level of Care Code Est Pt Level 4 (92012) Diagnoses Ischemic cardiomyopathy I25.5 CAD (coronary artery disease) I25.10 CPT Codes EKG - CPT: 40912-Xiwvyukhtvdliorqg, Complete ([id number])
[2023-05-31 09:24] VITALS: BP 120/70; PULSE 88; BMI 33.5
== END 2023-05-31 09:46 | disposition home or self-care (01) ==
PROVIDERS: Visit Provider Internal Medicine Cardiovascular Disease
DX: I25.5 Ischemic cardiomyopathy (principal); I25.10 Atherosclerotic heart disease of native coronary artery without angina pectoris
CPT/HCPCS: 93010; 99214

== ENCOUNTER → 2023-05-31 09:01 | Outpatient (BNVA) | payer MEDICARE, SELFPAY | PROVIDERS: Visit Provider Internal Medicine Cardiovascular Disease | DX: I25.5 Ischemic cardiomyopathy (principal); I25.10 Atherosclerotic heart disease of native coronary artery without angina pectoris | CPT/HCPCS: 93005; 99212 ==

== ENCOUNTER 2023-06-14 12:41 | Outpatient (REF) | payer MEDICARE, SELFPAY ==
--- NOTE | ~2023-06-14 | CT_ITS ---
EXAMINATION: CT CHEST SCREENING CLINICAL INFORMATION: Current smoker. Nicotine dependence. 2 packs per day with 45 pack-year history. COMPARISON: CT lung screening 01/05/2023. TECHNIQUE: Multidetector volumetric CT imaging of the chest is performed without contrast using low dose technique. Additional 2D coronal and sagittal reformatted images and axial 3D maximum intensity projection (MIP) images are generated on the CT workstation. This CT examination was performed using dose optimization techniques as appropriate, variously including the following: *Automated exposure control *Adjustment of mA and/or kV according to patient size (this includes techniques or standardized protocols for targeted exams where dose is matched to indication/reason for exam; i.e. extremities or head) *Use of iterative reconstruction technique DLP: 137 mGy-cm FINDINGS: LUNGS: There is an 8 x 4 x 6 mm pulmonary nodule in a subpleural location in the right lower lobe unchanged in appearance when compared to prior (5:313 compare prior 5:329). Some other smaller pulmonary nodular densities are seen and unchanged (see fragoso images). There are minimal emphysematous changes along with some minimal bronchial wall thickening. No concerning lung mass is seen. MEDIASTINUM: Median sternotomy with CABG. No mediastinal or hilar lymphadenopathy. There is a linear area of calcification in the left ventricle inferiorly which is unchanged. CORONARY ARTERY CALCIFICATION: Extensive status post CABG. PLEURA: There is no pleural effusion. No pleural mass or thickening. AXILLA: No lymphadenopathy. UPPER ABDOMEN: 4 x 2 mm calcification upper pole of right kidney which could be a renal calculus but may also be a vascular calcification. OSSEOUS STRUCTURES: Degenerative changes are present in the spine. CT/CT lung screening IMPRESSION: No change in appearance of the 8 mm pulmonary nodule. Other smaller nodules are unchanged as well. ASSESSMENT: Lung-RADS category 2: Benign. RECOMMENDATION: Routine annual low-dose CT screening in 12 months.
== END 2023-06-14 12:42 | disposition home or self-care (01) ==
LOC: HO.CT 12:41
PROVIDERS: PCP Nurse Practitioner Family; Visit Provider Nurse Practitioner Family
DX: Z12.2 Encounter for screening for malignant neoplasm of respiratory organs (principal); F17.210 Nicotine dependence, cigarettes, uncomplicated
CPT/HCPCS: 71271

== ENCOUNTER → 2023-08-01 08:44 | Outpatient (REF) | payer MEDICARE, SELFPAY ==
--- NOTE | 2023-08-01 08:51 | CA_ITS ---
Transthoracic Echocardiogram Patient (Last, First, Middle): Mark Chamberlain P Gender: Male Date of : 1955 Age: 68 Procedure Date: 08/01/2023 Procedure Type: Transthoracic Echocardiogram Location: OP Height: 177.8 cm Weight: 104.33 kg BSA: 2.22 m2 Heart Rate: bpm BP: 122 / 70 mmHg Bakery Decorator: TO Referring MD: Huang Orosco MD Symptoms: I25.5 - Ischemic cardiomyopathy Study Quality: Fair/Contrast Conclusions: - 1. Moderately reduced LV ejection fraction 35-40% with impaired relaxation abnormality with underlying regional wall motion abnormality consistent with ischemic cardiomyopathy 2. Mildly dilated left atrium 3. Mild aortic regurgitation in early mild aortic stenosis 4. Upper limits of normal ascending aortic size 5. No gross pericardial effusion Findings Procedure Information Contrast agent, definity, is being given per protocol without apparent complications. Left Ventricle Normal left ventricular cavity size. There is normal left ventricular wall thickness. The left ventricular systolic function is moderately decreased. The visually estimated ejection fraction is between 35-40%. Spectral Doppler is indicative of an impaired relaxation filling pattern. E/E prime ratio is between 8 and 15 consistent with indeterminate filling pressures. There is mild septal asymmetric hypertrophy. Wall Motion Rest Echo Findings The mid inferoseptal and mid inferolateral segments are hypokinetic. The basal inferior, mid inferior, basal inferoseptal, and basal inferolateral segments are akinetic. All other scored wall segments showed normal motion. Right Ventricle Normal right ventricular cavity size. There is severely decreased right ventricular systolic function. Atria The left atrium is mildly dilated. There is no evidence of interatrial shunt. The right atrium is likely dilated. Aortic Valve There is mild calcification of the aortic valve. There is mild thickening of the aortic valve. There is no aortic valve stenosis. The peak aortic gradient is 16 mmHg.The mean gradient is 7 mmHg. The aortic valve area is 2.17 cm2. There is mild aortic valve regurgitation. Mitral Valve There is mild anterior and posterior mitral leaflet thickening. The posterior mitral leaflet has restricted mobility. There is mild mitral annular calcification. There is mild mitral valve regurgitation. There is no mitral valve stenosis. Pulmonic Valve The pulmonic valve is likely normal. Tricuspid Valve The tricuspid valve was not well visualized. Tricuspid regurgitation envelope is inadequate for calculation of right ventricular systolic pressure. Normal right atrial pressure. Great Vessels The pulmonary artery was not well visualized. Venous The inferior vena cava is normal in size and collapses greater than 50% with inspiration. Pericardium/Pleural There is no evidence of pericardial effusion. Prior Study Comparison Changes noted compared to prior study dated: 07/19/2022. LV systolic function is further reduced Measurements 2D Linear Measurements IVSd: 1.35 0.6-0.9/0.6-1.0 cm LVIDd: 5.19 3.9-5.3/4.2-5.9 cm LVIDd Index: 2.34 2.4-3.2/2.2-3.1 cm/m2 LVIDs: 3.99 2.0-3.6 cm LVPWd: 0.86 0.7-1.1 cm LA Diam: 4.50 2.7-3.8/3.0-4.0 cm LAIDs Index: 2.03 1.5-2.3 cm/m2 LV Mass: 275.19 67-162/88-224 g LV Mass Index: 123.96 43-95/49-115 g/m2 LVOT Diam: 2.50 3.0+(-)1.3 cm 2D Systolic Function EF 4C: 41.10 >55% EF 2C: 35.00 >55% EF BiP: 37.10 >55% Mitral Valve MV Pk E: 0.81 MV PK A: 0.65 MV Decel Time: 209.00 E/A: 1.30 E'Lateral: 7.07 E'Medial: 5.77 E/E' Med: 14.10 E/E' Lat: 11.50 PHT: 61.00 MVA PHT: 3.61 Decel [place]: 3.90 Aortic Valve AoV Pk Mikie: 1.98 AoV Mn Mikie: 1.27 AoV VTI: 0.42 AoV Pk Grad: 16.00 Aov Mn Grad: 7.00 JOSE Cont.VTI: 2.17 AI Pk Mikie: 4.32 AI VTI: 2.40 AI [place]: 2.41 LVOT LVOT Pk Mikie: 0.83 LVOT Mn Mikie: 0.52 LVOT VTI: 0.18 LVOT Pk Grad: 3.00 LVOT Mn Grad: 1.00 LVOT Diam: 2.50 LVOT Area: 4.91 Diastolic Function MV Pk E: 0.81 MV Pk A: 0.65 E/A: 1.30 E'Medial: 5.77 E/E' Med: 14.10 E' Laterial: 7.07 E/E' Lat: 11.50 Right Ventricle TAPSE (mm): 8.99 TVS' Mikie: 5.66 Tricuspid Valve RA Press: 8.00 Great Vessels Aorta Sinus of Valsalva: 3.28 2.0-3.[address] [place]: 2.06 1.7-3.4 cm Ao Asc: 3.50 2.1-3.4 cm Updated in Other Vendor System with Status of Final Huang Orosco MD electronically signed on 08/01/2023 4:23:35 PM with status of Final
== END ==
LOC: HO.CARD 08:44
PROVIDERS: PCP Nurse Practitioner Family; Visit Provider Internal Medicine Cardiovascular Disease
DX: I25.5 Ischemic cardiomyopathy (principal)
CPT/HCPCS: 93306; Q9957

== ENCOUNTER → 2023-08-01 08:51 | Outpatient (BNV) | payer MEDICARE, SELFPAY | PROVIDERS: PCP Nurse Practitioner Family; Visit Provider Internal Medicine Cardiovascular Disease | DX: I25.5 Ischemic cardiomyopathy (principal); I35.1 Nonrheumatic aortic (valve) insufficiency; I34.0 Nonrheumatic mitral (valve) insufficiency | CPT/HCPCS: 93306 ==

== ENCOUNTER 2023-09-03 11:13 | Outpatient (AMB) | payer MEDICARE, SELFPAY ==
[2023-09-03 11:38] VITALS: BP 112/74; PULSE 83; TEMP 36.8; O2SAT 96
--- NOTE | 2023-09-03 11:38 | MHC.OFFWIV ---
Intake Vital Signs 09/03/23 11:38 Height 5 ft 10 in BP 112/74 Blood Pressure Location Rt brachial Position Sitting Pulse 83 Pulse Source Pulse Oximeter Temp 98.2 F Temp Source Oral Pulse Oximetry (%) 96 Oxygen Delivery Method Room Air Intake Visit Reasons: EP Liquid in ears/post cold Intake Note: pt is here for fluid in ears post cold Patient Tobacco Use Status: Current everyday Tobacco user Allergies No Known Allergies Allergy (Verified 09/03/23 11:39) Do you need a note to return to daycare/school/sports/work: No HPI HPI Comments History of Present Illness Details Patient is a 68-year-old male complaining of liquid in his ears for the past week. He states he had a cold approximately 2 weeks ago and basically every symptom he had went away except for this fluid that he feels like he is in his ears. He endorses congestion in his head as well as a cough however he states he has a smoker so that is normal for him, his cough has not changed in intensity or frequency. He does endorse ?doubled hearing ?. He denies any shortness of breath, sinus pain or ear pain. Patient states he did not take any medications to try to make it better because he does not take any medications that are not prescribed to him by his doctor. He denies a history of seasonal allergies. [facility] Medical History Fatty liver CAD (coronary artery disease) Ischemic cardiomyopathy Bilateral carotid artery stenosis PVD (peripheral vascular disease) Dyslipidemia History of colon polyps Nicotine dependence, cigarettes, uncomplicated Leukocytosis Surgical History History of colonoscopy (~03/2018) History of right-sided carotid endarterectomy (~10/2018) History of atherectomy (~09/2020) History of coronary artery bypass graft (~08/2016) Family History Father Stroke CVD (cardiovascular disease) Substance use disorder Mother CVD (cardiovascular disease) Substance use disorder Brother No problems noted. Sister Substance use disorder Social History Housing: House Alcohol intake: current Alcohol intake frequency: a few times a week Alcohol type: beer Patient Tobacco Use Status: Current everyday Tobacco user Cigarette Packs Per Day: 1.5 Cigarettes Per Day: 30 Years Smoked: (current smoker - onset 21yo, 1-1.5ppd x 45yrs, 50pyh) e-Cigarette/Vaping Use: Never Used Second Hand Smoke Exposure: No service: Yes Current occupational status: employed and retired Current occupational exposures/hazards: Yes Cognitive needs: No Hearing needs: No Vision needs: No Review of Systems Const All systems reviewed & are unremarkable except as noted in HPI and below Physical Exam Vital Signs: Last Vital Signs Temp 98.2 F 09/03/23 11:38 Pulse 83 09/03/23 11:38 BP 112/74 09/03/23 11:38 Pulse Ox 96 09/03/23 11:38 Oxygen Delivery Method Room Air 09/03/23 11:38 Const General: cooperative, healthy appearing, comfortable and no acute distress Orientation/consciousness: patient oriented x3 Limitations: no limitations HEENT Head: Yes normal to inspection Ears: hearing grossly normal bilaterally, external ears normal and TM's normal bilaterally General nose exam: Normal external nose present, Normal nares present and No nasal discharge present Face and sinus: Yes normal facial exam and Yes sinuses nontender Mouth: Normal oral and palatal mucosa present and moist mucous membranes Throat: Yes tonsils normal, Yes uvula midline and Yes posterior oropharynx abnormal (Erythematous) Eyes General: appearance normal, both eyes and all related structures Neck Neck: Yes normal visual inspection Resp Effort & Inspection: normal respiratory effort, able to speak in complete sentences, Actively coughing, no respiratory distress, not tachypneic, no tripod positioning and no use of accessory muscles Neuro General: patient oriented x3 Extrem General: Yes normal to inspection and Yes no clubbing, cyanosis or edema Assessment & Plan Assessment & Plan (1) Head congestion: Code(s): R09.81 - Nasal congestion Plan: Recommended daily allergy pill for 2 weeks, can also add Benadryl if needed. If no improvement, or if it is getting worse, advised to can follow up with his primary care doctor. Plan See above Coding Level of Care Code Est Pt Level 2 (48414) Diagnoses Head congestion R09.81
== END 2023-09-03 12:30 | disposition home or self-care (01) ==
PROVIDERS: PCP Nurse Practitioner Family; Visit Provider Physician Assistant
DX: R09.81 Nasal congestion (principal)
CPT/HCPCS: 99212

== ENCOUNTER 2023-10-10 07:14 | Day surgery (SDC) | payer MEDICARE, SELFPAY ==
[2023-10-08 13:21] VITALS: BMI 33.4
[2023-10-10 07:48] VITALS: BMI 33.0
[2023-10-10 08:02] VITALS: BP 125/76; PULSE 85; RESP 16; TEMP 36.1; O2SAT 97
[2023-10-10] MEDS: Lactated Ringers 1,000 ML 50 ML IVCONT (08:15)
--- NOTE | 2023-10-10 08:15 | P.CONAN_ITS ---
Documented by User: Gayla Lopez NP 10/09/23 10:14 HPI - Anesthesia Eval Consult details Narrative: 68yo M for Colonoscopy Cardiac optimized. [facility] cardiology fro CAD, Mild Ischemic CMP. Stable at 05/2023 yearly routine visit. Xarelto for PVD? Follows [facility] vascular. Stable at last office visit 04/2023. PMFSH Active Problems Active Problems: All Active Problems Head congestion (Acute) Elevated liver enzymes (Acute) Right leg pain (Acute) Right hip pain (Acute) Screening for colon cancer (Acute) CAD (coronary artery disease) (Acute) Bilateral carotid artery stenosis (Acute) Ischemic cardiomyopathy (Acute) PVD (peripheral vascular disease) (Acute) Aortic ectasia (Acute) Aneurysm of left common iliac artery (Acute) HTN (hypertension) (Acute) Dyslipidemia (Acute) Nicotine dependence, cigarettes, uncomplicated (Acute) Pulmonary nodules (Acute) History of colon polyps (Acute) Leukocytosis (Acute) Vitamin D deficiency (Acute) Arthralgia (Acute) Muscle pain (Acute) Blurred vision (Acute) [place] of foot (Acute) Pigmented skin lesion of uncertain behavior of head (Acute) Hand joint pain (Acute) Left hamstring muscle strain (Acute) Left knee pain (Acute) Intractable left heel pain (Acute) Ingrown toenail (Acute) Past Medical History Medical History Fatty liver CAD (coronary artery disease) Ischemic cardiomyopathy Bilateral carotid artery stenosis PVD (peripheral vascular disease) Dyslipidemia History of colon polyps Nicotine dependence, cigarettes, uncomplicated Leukocytosis Family History Family History Father Stroke CVD (cardiovascular disease) Substance use disorder Mother CVD (cardiovascular disease) Substance use disorder Brother No problems noted. Sister Substance use disorder Surgical History Surgical History History of colonoscopy (~03/2018) History of right-sided carotid endarterectomy (~10/2018) History of atherectomy (~09/2020) History of coronary artery bypass graft (~08/2016) Social History Social History Housing: House Alcohol intake: current Alcohol intake frequency: a few times a week Alcohol type: beer Patient Tobacco Use Status: Current everyday Tobacco user Cigarette Packs Per Day: 1.5 Cigarettes Per Day: 30 Years Smoked: (current smoker - onset 21yo, 1-1.5ppd x 45yrs, 50pyh) e-Cigarette/Vaping Use: Never Used Second Hand Smoke Exposure: No Use of substances other than those prescribed or required for medical reasons: No Are you DNR?: No Advance Directives: No Advance Directives Information Provided: Yes service: Yes Current occupational status: employed and retired Current occupational exposures/hazards: Yes Cognitive needs: No Hearing needs: No Vision needs: No Meds Allergies Allergy/AdvReac Type Severity Reaction Status Date / Time No Known Allergies Allergy Verified 09/03/23 11:39 Home Medications ?Medication ?Instructions ?Recorded ?Confirmed ?Last Taken ?Type multivitamin (Daily Multi-Vitamin 1 tab PO DAILY 05/29/22 10/08/23 Unknown History tablet) vitamin B complex 1 tab PO DAILY 05/29/22 10/08/23 Unknown History Exam Height,Weight and Vital Signs: Height 5 ft 10.5 in Weight 107.048 kg Pertinent Lab Results Pertinent Lab Results: Laboratory Tests 05/01/23 08:09 WBC 10.4 Hgb 15.7 Hct 43.9 Plt Count 223 Sodium 140 Potassium 4.8 Chloride 104 Carbon Dioxide 27 BUN 11 Creatinine 1.01 Narrative Narrative: EKG 05/2023 normal sinus rhythm with left atrial enlargement with right bundle-branch block and inferior infarct with PVCs ECHO 07/2023 Conclusions: - 1. Moderately reduced LV ejection fraction 35-40% with impaired relaxation abnormality with underlying regional wall motion abnormality consistent with ischemic cardiomyopathy 2. Mildly dilated left atrium 3. Mild aortic regurgitation in early mild aortic stenosis 4. Upper limits of normal ascending aortic size 5. No gross pericardial effusion Carotid testing dated 04/30/2023 demonstrates bilateral 0-49% stenosis Lower extremity arterial testing dated 05/08/2023 demonstrates ZULLY on the right of 1.03 and on the left 0.68 with a patent stent. Of note this is a decrease from the prior ZULLY which was nearly 0.96. Assessment and Plan Assessment Anesthesia Assessment: Chart Reviewed Documented by User: Su Senior DO 10/10/23 08:43 HPI - Anesthesia Eval Consult details Narrative: 68yo M for Colonoscopy Cardiac optimized. [facility] cardiology fro CAD, ischemic CMP. Stable at 05/2023 yearly routine visit. Xarelto for PVD? Follows [facility] vascular. Stable at last office visit 04/2023. [facility] Past Medical History Medical History Fatty liver CAD (coronary artery disease) Ischemic cardiomyopathy Bilateral carotid artery stenosis PVD (peripheral vascular disease) Dyslipidemia History of colon polyps Nicotine dependence, cigarettes, uncomplicated Leukocytosis Family History Family History Father Stroke CVD (cardiovascular disease) Substance use disorder Mother CVD (cardiovascular disease) Substance use disorder Brother No problems noted. Sister Substance use disorder Family history of problems with anesthesia: No Surgical History Surgical History History of colonoscopy (~03/2018) History of right-sided carotid endarterectomy (~10/2018) History of atherectomy (~09/2020) History of coronary artery bypass graft (~08/2016) History of Problems with Anesthesia: No Social History Social History Housing: House Alcohol intake: current Alcohol intake frequency: a few times a week Alcohol type: beer Patient Tobacco Use Status: Current everyday Tobacco user Cigarette Packs Per Day: 1.5 Cigarettes Per Day: 30 Years Smoked: (current smoker - onset 21yo, 1-1.5ppd x 45yrs, 50pyh) e-Cigarette/Vaping Use: Never Used Second Hand Smoke Exposure: No Use of substances other than those prescribed or required for medical reasons: No Are you DNR?: No Advance Directives: No Advance Directives Information Provided: Yes service: Yes Current occupational status: employed and retired Current occupational exposures/hazards: Yes Cognitive needs: No Hearing needs: No Vision needs: No Meds Allergies Allergy/AdvReac Type Severity Reaction Status Date / Time No Known Allergies Allergy Verified 09/03/23 11:39 Home Medications ?Medication ?Instructions ?Recorded ?Confirmed ?Last Taken ?Type multivitamin (Daily Multi-Vitamin 1 tab PO DAILY 05/29/22 10/08/23 Unknown History tablet) vitamin B complex 1 tab PO DAILY 05/29/22 10/08/23 Unknown History Exam Exam Date and Time: October 10, 2023 0815 Height,Weight and Vital Signs: Height 5 ft 10.5 in Weight 107.048 kg Height 5 ft 10.5 in Weight 105.914 kg Vital Signs Temperature 97.0 F 10/10/23 08:02 Pulse Rate 85 10/10/23 08:02 Respiratory Rate 16 10/10/23 08:02 Blood Pressure 125/76 10/10/23 08:02 Pulse Oximetry 97 10/10/23 08:02 Oxygen Delivery Method Room Air 10/10/23 08:02 Temperature 97.0 F 10/10/23 08:02 Pulse Rate 85 10/10/23 08:02 Respiratory Rate 16 10/10/23 08:02 Blood Pressure 125/76 10/10/23 08:02 Pulse Oximetry 97 10/10/23 08:02 Oxygen Delivery Method Room Air 10/10/23 08:02 Airway Mallampati Class: II TM Dist: <=3cm Neck ROM: Full Loose/Missing/Broken Teeth: No (patient denies any loose or broken teeth) Heart: S1S2 Lungs: CTAB Assessment and Plan Assessment Anesthesia Assessment: Anesthesia Plan Discussed and Chart Reviewed Final Anesthetic Review Family History of Problems with Anesthesia: No History of Problems with Anesthesia: No NPO: Yes ASA Class: III Final Preanesthetic Review: No Changes in Pt Med Stat, Meds/Allgs Chart Reviewed, Consent Obtained/Reviewed and Anes Risks/Benef Reviewed Patient Risk: Intermediate Procedure Risk: Low Anesthetic Plan Anesthetic Plan: MAC: and Agree w/ Assess. and Plan Disposition: Standard PACU
[2023-10-10 09:39] VITALS: BP 121/58; PULSE 89; RESP 16; TEMP 36.2; O2SAT 97
--- NOTE | 2023-10-10 09:43 | PM.OP ---
Brief Operative Note Date of Service: 10/10/23 Pre-op diagnosis: Screening Post-op diagnosis: other (Polyp) Procedure: Colonoscopy to the cecum with hot snare polypectomy x 1 with placement of 1 Resolution clip Surgeon: Arcenio Gomez MD Anesthesia: MAC Was an Commercial Representative used for this Procedure?: No Estimated blood loss (mL): 0 Pathology: other (A. Polyp at 15cm) Condition: stable Disposition: PACU
--- NOTE | 2023-10-10 09:57 | PC.NURSE ---
24hr update documented on paper
[2023-10-10 10:01] VITALS: BP 121/61; PULSE 84; RESP 18; TEMP 36.3; O2SAT 96
--- NOTE | 2023-10-10 11:00 | OP_ITS ---
DATE OF SERVICE: 10/10/2023 SURGEON: Arcenio Gomez MD INDICATIONS: The patient presents for followup of personal history of colon polyps, family history of colon cancer, colorectal cancer screening. Full consent has been obtained from him for this, including risks of bleeding and perforation. PREOPERATIVE DIAGNOSIS: POSTOPERATIVE DIAGNOSIS: PROCEDURE PERFORMED: Colonoscopy to the cecum with hot snare polypectomy and placement of 1 resolution clip. ESTIMATED BLOOD LOSS: COMPLICATIONS: ANESTHESIA: Monitored anesthesia care. ASSISTANTS: SPECIMENS: PREOPERATIVE DIAGNOSES: Colorectal cancer screening, personal history of colon polyps, family history of colon cancer. POSTOPERATIVE DIAGNOSES: Colorectal cancer screening, personal history of colon polyps, family history of colon cancer, colon polyp, diverticulosis, and internal hemorrhoids. DESCRIPTION OF PROCEDURE: The patient was placed in the left lateral decubitus position. The digital rectal exam revealed no abnormalities. The Phot[employer] video pediatric colonoscope was entered into the rectum and advanced easily to the cecum. Once in the cecum, I did identify normal-appearing cecal pouch with appendiceal orifice and a normal-appearing ileocecal valve. The entire cecum was well visualized and appeared normal. There was transillumination of light deep in the right lower quadrant. The scope was slowly withdrawn assessing all mucosal surfaces carefully. Preparation was excellent. There was a mild amount of sigmoid diverticulosis. I did not visualize any sign of colitis nor angiodysplasia. The only polyp I visualized was at 15 cm. This was approximately 12 mm in diameter and slightly raised. This was removed with a hot snare polypectomy and recovered by suction. The polypectomy site appeared clean, without any sign of residual polyp nor bleeding. A single resolution clip was applied to the polypectomy site with good deployment and good hemostasis. In the rectum, scope was retroflexed visualizing internal hemorrhoids, but no other pathology. The rectal mucosa appeared normal. The scope was straightened and withdrawn from the patient. He tolerated the procedure well and was returned to recovery area in stable condition. IMPRESSION: 1. Colon polyp. 2. Diverticulosis. 3. Internal hemorrhoids. PLAN: The results of the pathology will be checked. I would recommend a repeat colonoscopy in 5 years. He was advised to resume his Xarelto in 24 hours and to resume his aspirin in 24 hours. MD STEPHANIE Gamboa/MARCIN / [id number]
== END 2023-10-10 10:33 | disposition home or self-care (01) ==
PROVIDERS: PCP Nurse Practitioner Family; Visit Provider Internal Medicine
PROC: 0DJD8ZZ Inspection of Lower Intestinal Tract, Via Natural or Artificial Opening Endoscopic (ICD-10-PCS; CPT 45378; principal; 2023-10-10 08:40)
DX: Z12.11 Encounter for screening for malignant neoplasm of colon (principal); Z86.010 Personal history of colon polyps; Z80.0 Family history of malignant neoplasm of digestive organs; K63.5 Polyp of colon; K57.30 Diverticulosis of large intestine without perforation or abscess without bleeding; K64.8 Other hemorrhoids; I25.10 Atherosclerotic heart disease of native coronary artery without angina pectoris; I73.9 Peripheral vascular disease, unspecified; I48.91 Unspecified atrial fibrillation; Z95.1 Presence of aortocoronary bypass graft; E78.5 Hyperlipidemia, unspecified; Z79.01 Long term (current) use of anticoagulants; Z79.82 Long term (current) use of aspirin; Z98.890 Other specified postprocedural states; Z79.899 Other long term (current) drug therapy; F17.210 Nicotine dependence, cigarettes, uncomplicated
CPT/HCPCS: 45385; 88305; J2704

== ENCOUNTER 2024-02-25 13:47 | Outpatient (AMB) | payer MEDICARE, SELFPAY ==
[2024-02-25 13:49] VITALS: BP 122/70; PULSE 93; O2SAT 97; BMI 33.9
--- NOTE | 2024-02-25 13:49 | A.OFFPC_ITS ---
Vital Signs 02/25/24 13:49 Height 5 ft 10.5 in Weight 240 lb BMI 33.9 BP 122/70 Blood Pressure Location Rt brachial Position Sitting Pulse 93 Pulse Source Pulse Oximeter Pulse Oximetry (%) 97 Intake Visit Reasons: Annual Physical Intake Note: pt is here for PE Allergies No Known Allergies Allergy (Verified 02/25/24 14:21) Medication List - Last Reconciled 02/25/24 by CHRIS RamírezP- aspirin 81 mg PO DAILY atorvastatin 80 mg PO DAILY ezetimibe 10 mg PO DAILY 90 days isosorbide mononitrate ER 30 mg PO DAILY lisinopril 2.5 mg PO DAILY metoprolol succinate ER 50 mg PO DAILY multivitamin (Daily Multi-Vitamin tablet) 1 tab PO DAILY rivaroxaban (Xarelto) 2.5 mg PO BID vitamin B complex 1 tab PO DAILY Tobacco use date assessed: 02/25/24 Fall risk assessment: No Falls in past year Last assessed Fall Risk: 02/25/24 Dental Screening Dental Screen Date: 02/25/24 Did you have a dental visit in the last 12 months?: Yes Did you have a dental problem in the last 6 months where you did not have access to dental care?: No Was dental information given to patient?: Patient has dentist HPI Annual Physical HPI Details History of Present Illness Here for a PE. The patient is a 68-year-old male presenting with dizziness, particularly upon standing. He reports experiencing this sensation primarily in the morning when rising from bed or after not having eaten for a while. The episodes of dizziness started approximately a couple of years ago and occur sporadically, with symptoms including lightheadedness without nausea or syncope. He provided a history of previously having a systolic murmur noted by other clinicians over the years. The patient has not observed any recent changes in his cardiac status or additional symptoms suggestive of worsening heart disease. There is no reported history of vertigo, changes in vision, hearing issues, or loss of consciousness. I had mentioned his dizzy spells sometimes correlate with a drop in blood pressure and recommends he drink more water and rise more slowly from seated or lying positions. No prior interventions have been attempted for these symptoms. He sees a linux engineer, rip saw operator, and vascular specialist. He also gets LDCTs for nodules (smoker, still) His colon screen is up to date, and so is his PSA. refused EDDA today Social History - Active lifestyle maintained, although details about exercise routines were not discussed. - Recently retired, with some involvemen t in volunteering or part-time work as suggested, though specifics were not clearly outlined. - No current tobacco use was directly co nfirmed; however, involvement in smoking history is implied by thoracic screening discussions. - Alcohol intake was briefly mentioned b ut detailed consumption was not specified. Review of Systems - Cardiovascular: Denies chest pain, pal pitations, or edema. - Gastrointestinal: Denies constipation, diarrhea, abdominal pain, or changes in bowel habits. - Neurological: Reports dizziness upon s tanding, denies headaches or syncope. -denies any fevers/chills Physical Exam General: Cooperative, healthy appearing, comfortable, no acute distress and well developed, obese Orientation: Patient oriented x3 Limitations: No limitations Head: Normal to inspection Ears: Hearing grossly normal bilaterally Nose: Normal external nose present Face and sinus: Normal facial exam Eyes: Appearance normal, both eyes and all related structures Neck: Normal visual inspection and Yes full ROM Respiratory: Normal respiratory effort and able to speak in complete sentences. Clear to auscultation bilaterally Cardiovascular: Regular rate and rhythm. Normal S1 and S2. Systolic murmur noted GI: Normal to inspection. Soft to palpation and nontender Skin: No rashes or lesions noted Neuro: Patient oriented x3 Extremities: Normal to inspection Results Plan - Orthostatic Hypotension: The primary m anagement involves non-pharmacological approaches such as increased hydration and gradual positional changes. Plan to monitor blood pressure changes closely. - Annual Wellness Examination: Complete blood work to include PSA testing, liver and kidney function assessment, and thyroid function. The patient will fast before the collection of these labs. Scheduled to coordinate the timing of testing around the new year. - Cardiovascular Risk: Continued monitor ing of the systolic murmur and ensure regular cardiovascular follow-ups. - Preventive Care: Discussed the need fo r routine colorectal cancer screening, considering the patient's age and general health recommendations. Patient was informed and verbally consented to the use of an ambient scribe for clinic note documentation during this visit. Discussion Notes I discussed with the patient that his episodes of dizziness are likely related to orthostatic hypotension, characterized by a drop in blood pressure when standing up. The non-pharmacological approach of ensuring adequate hydration and careful positional changes should help alleviate symptoms. I explained the necessity of routine blood work to assess his overall health status, including PSA levels given his age. We talked about the importance of following routine p reventive care measures, such as colorectal screenings. The risks and benefits of these tests were explained comprehensively. I also informed the patient of the necessity for consistent observation and possible follow-up with cardiology regarding the systolic murmur. Patient Instructions - Increase fluid intake to help manage s ymptoms of orthostatic hypotension. - Implement slow positional changes from sitting or lying to standing to reduce dizziness occurrences. - Fast prior to scheduled blood work for optimal test accuracy. - Follow up on routine colorectal screen ing as discussed. - Seek medical attention if dizziness wo rsens, changes in symptoms occur, or if new symptoms develop. ON LICENSE OF [facility] Medical History Fatty liver CAD (coronary artery disease) Ischemic cardiomyopathy Bilateral carotid artery stenosis PVD (peripheral vascular disease) Dyslipidemia History of colon polyps Nicotine dependence, cigarettes, uncomplicated Leukocytosis Surgical History History of colonoscopy (~03/2018) History of right-sided carotid endarterectomy (~10/2018) History of atherectomy (~09/2020) History of coronary artery bypass graft (~08/2016) Family History Father Stroke CVD (cardiovascular disease) Substance use disorder Mother CVD (cardiovascular disease) Substance use disorder Brother No problems noted. Sister Substance use disorder Social History Housing: House Alcohol intake: current Alcohol intake frequency: a few times a week Alcohol type: beer Patient Tobacco Use Status: Current everyday Tobacco user Cigarette Packs Per Day: 1.5 Cigarettes Per Day: 30 Years Smoked: (current smoker - onset 21yo, 1-1.5ppd x 45yrs, 50pyh) e-Cigarette/Vaping Use: Never Used Second Hand Smoke Exposure: No service: Yes Current occupational status: employed and retired Current occupational exposures/hazards: Yes Cognitive needs: No Hearing needs: No Vision needs: No Questionnaire PHQ-9 Over the last 2 weeks, how often have you been bothered by any of the following problems? 1. Little interest or pleasure in doing things: not at all 2. Feeling down, depressed, or hopeless: not at all 3. Trouble falling or staying asleep, or sleeping too much: not at all 4. Feeling tired or having little energy: not at all 5. Poor appetite or overeating: not at all 6. Feeling bad about yourself - or that you are a failure or have let yourself or your family down: not at all 7. Trouble concentrating on things, such as reading the newspaper or watching television: not at all 8. Moving or speaking so slowly that other people could have noticed. Or the opposite - being so fidgety or restless that you have been moving around a lot more than usual: not at all 9. Thoughts that you would be better off or of hurting yourself in some way: not at all Total score: 0 Depression Screening Interpretation: Negative Depression Screening Done: Yes 46381 - PHQ-9 Billing: Yes Source: Developed by Drs. Arcenio Hobbs, Hawa Hancock, Taran Sauceda and colleagues, with an educational elsy from [employer]. Thrive Questionnaire Date Thrive assessed: 02/25/24 I am a: Patient What is your living situation today?: I have a steady place to live Within the past 12 months, did the food you bought not last and you didn't have the money to get more?: I choose not to answer this question Within the past 12 months, did you worry whether your food would run out before you got money to buy more?: I choose not to answer this question Do you have trouble paying for medicines?: Yes Do you have trouble getting transportation to medical appointments?: No Do you have trouble paying your heating and electricity bill?: No Do you have trouble taking care of your child, family member or friend?: I c hoose not to answer this question Do you have trouble with day-to-day activities such as bathing, preparing meals, shopping, managing finances, etc.?: No Are you currently unemployed and looking for a job?: No Are you interested in more education?: No Please select the resources that you would like help with: Paying for medicine Currently or been in a relationship where the following occur: No concerns reported THRIVE Score: 0 AUDIT C Alcohol Use Questionnaire (AUDIT-C) 1. How often do you have a drink containing alcohol?: 4 or more times a week 2. How many drinks containing alcohol do you have on a typical day when you are drinking?: 5 or 6 3. How often do you have six or more drinks on one occasion?: Weekly Total Score: 9 Score Reviewed/Action Taken: Yes (went over negative results of etoh abuse) ISHAN-7 AMB Questionnaire ISHAN-7 Date ISHAN - 7 assessed: 02/25/24 Feeling nervous, anxious, or on edge: 0 = Not at all Not being able to stop or control worryin = Not at all Worrying too much about different things: 0 = Not at all Trouble relaxin = Not at all Being so restless that it is hard to sit still: 0 = Not at all Becoming easily annoyed or irritable: 0 = Not at all Feeling afraid as if something awful might happen: 0 = Not at all Total ISHAN-7 score (0-4 normal; 5-9 mild; 10-14 moderate; 15-21 severe): 0 Source: Developed by Drs. Arcenio Hobbs, Hawa Hancock, Taran Sauceda and colleagues, with an educational elsy from [employer]. ISHAN-7 Assessment Billing ISHAN-7 Assessment Tool: ISHAN-7 Assessment 23267 Physical exam (Primary Care) Vital Signs: Last Vital Signs Pulse 93 02/25/24 13:49 BP 122/70 02/25/24 13:49 Pulse Ox 97 02/25/24 13:49 BMI result Body Mass Index 33.9 Tobacco/Smoking Status: Tobacco use Status Tobacco use date assessed 02/25/24 02/25/24 13:53 Patient Tobacco Use Status Current everyday Tobacco 02/25/24 13:49 e-Cigarette/Vaping Use Never Used 02/25/24 13:49 PHQ-9: PHQ-9 Score PHQ-9: Total score 0 02/25/24 13:53 Depression Screening Interpretation: Negative Thrive Assessment: Date of Thrive Assessment Date Thrive assessed 02/25/24 02/25/24 13:53 Currently or been in a relationship where the following occur: No concerns reported Coding Level of Care Code Est Pt Prev Care >65y(02290) Diagnoses Pulmonary nodules R91.8 Vitamin D deficiency E55.9 HTN (hypertension) I10 Dyslipidemia E78.5 Nicotine dependence, cigarettes, uncomplicated F17.210 Physical exam Z00.00 Additional Codes ISHAN-7 Assessment Billing - ISHAN-7 Assessment Tool: ISHAN-7 Assessment 45752 ([id number]) PHQ-9 - 09985 - PHQ-9 Billing: Yes ([id number]) Assessment & Plan Assessment & Plan (1) Pulmonary nodules: Comment: (12/2022 LDCT stable - yearly LDCT scans) Code(s): R91.8 - Other nonspecific abnormal finding of lung field Category: Medical (2) Vitamin D deficiency: Code(s): E55.9 - Vitamin D deficiency, unspecified Category: Medical (3) HTN (hypertension): Code(s): I10 - Essential (primary) hypertension Category: Medical (4) Dyslipidemia: Code(s): E78.5 - Hyperlipidemia, unspecified Category: Medical (5) Nicotine dependence, cigarettes, uncomplicated: Comment: (current smoker - onset 21yo, 1-1.5ppd x 45yrs, 50pyh) Code(s): F17.210 - Nicotine dependence, cigarettes, uncomplicated Category: Medical (6) Physical exam: Code(s): Z00.00 - Encounter for general adult medical examination without abnormal findings Category: Medical Plan: . Plan . Orders: Orders TSH reflex Free T4 Today E55.9 - Vitamin D deficiency, unspecified, E78.5 - Hyperlipidemia, unspecified, I10 - Essential (primary) hypertension Vitamin D 25-OH Total Today E55.9 - Vitamin D deficiency, unspecified, E78.5 - Hyperlipidemia, unspecified, I10 - Essential (primary) hypertension Complete Blood Count Auto Diff Today E55.9 - Vitamin D deficiency, unspecified, E78.5 - Hyperlipidemia, unspecified, I10 - Essential (primary) hypertension Comprehensive [place]. Panel Fast Today E55.9 - Vitamin D deficiency, unspecified, E78.5 - Hyperlipidemia, unspecified, I10 - Essential (primary) hypertension UA CC w/rflx Micro + Cult Today E55.9 - Vitamin D deficiency, unspecified, E78.5 - Hyperlipidemia, unspecified, I10 - Essential (primary) hypertension Lipid Panel Today E55.9 - Vitamin D deficiency, unspecified, E78.5 - Hyperlipidemia, unspecified, I10 - Essential (primary) hypertension Prostate Specific Antigen Scr Today Z12.5 - Encounter for screening for malignant neoplasm of prostate Medications: Refilled ezetimibe 10 mg PO DAILY 90 days 90 tabs 1RF
== END 2024-02-25 14:58 | disposition home or self-care (01) ==
PROVIDERS: PCP Nurse Practitioner Family; Visit Provider Nurse Practitioner Family
DX: R91.8 Other nonspecific abnormal finding of lung field (principal); E55.9 Vitamin D deficiency, unspecified; I10 Essential (primary) hypertension; E78.5 Hyperlipidemia, unspecified; F17.210 Nicotine dependence, cigarettes, uncomplicated; Z00.00 Encounter for general adult medical examination without abnormal findings

== ENCOUNTER → 2024-02-25 13:47 | Outpatient (BNVA) | payer MEDICARE, SELFPAY | PROVIDERS: PCP Nurse Practitioner Family; Visit Provider Nurse Practitioner Family | DX: Z00.00 Encounter for general adult medical examination without abnormal findings (principal); Z12.5 Encounter for screening for malignant neoplasm of prostate; I10 Essential (primary) hypertension; E78.5 Hyperlipidemia, unspecified; E55.9 Vitamin D deficiency, unspecified; R91.8 Other nonspecific abnormal finding of lung field; F17.210 Nicotine dependence, cigarettes, uncomplicated; Z71.6 Tobacco abuse counseling | CPT/HCPCS: 96127; 99397 ==

== ENCOUNTER 2024-05-13 08:31 | Outpatient (REF) | payer MEDICARE, SELFPAY ==
--- NOTE | ~2024-05-13 | US_ITS ---
EXAMINATION: US EXTRACRANIAL CAROTID DUPLEX, BILATERAL CLINICAL INFORMATION: Occlusion and stenosis. COMPARISON: April 30, 2023 demonstrated a 0-49% stenosis at both size. TECHNIQUE: Real-time ultrasound and Doppler techniques (integrating B-mode 2-D vascular images, Doppler spectral analysis and color-flow Doppler imaging) were utilized to interrogate the extracranial carotid arteries, the vertebral arteries and proximal subclavian arteries bilaterally. The degree of stenosis is determined by criteria similar to NASCET. FINDINGS: Right Side: 1. There is calcified atherosclerotic plaque seen in the bifurcation/proximal ICA region. 2. The common carotid artery PSV proximally is 109 cm/s and distally 90 cm/s. 3. The proximal internal carotid artery velocities are 88 cm/s systolic and 22 cm/s diastolic. Spectral broadening. 4. The proximal external carotid artery PSV is 247 cm/s. Spectral broadening. 5. The vertebral artery shows antegrade flow. 6. The subclavian artery waveforms are triphasic. Left Side: 1. There is irregular calcified atherosclerotic plaque seen in the bifurcation/proximal ICA region. 2. The common carotid artery PSV proximally is 99 cm/s and distally 71 cm/s. 3. The proximal internal carotid artery velocities are 101 cm/s systolic and 41 cm/s diastolic. Spectral broadening. 4. The proximal external carotid artery PSV is 306 cm/s. Spectral broadening. 5. The vertebral artery shows antegrade flow. 6. The subclavian artery waveforms are triphasic. Incidentally, arrhythmia was present. US/US carotid duplex BI IMPRESSION: 1. RIGHT: Calcified plaques representing 0-49% stenosis by ultrasound criteria. 2. LEFT: Irregular calcified plaques representing 0-49% stenosis by ultrasound criteria. 3. There is no change in the category severity of disease when compared to the previous study dated April 30, 2023.. Arrhythmia during the exam, incidentally. Electronically signed by: Jason Hartley MD 05/14/2024 08:20 AM [facility]
--- NOTE | ~2024-05-13 | US_ITS ---
EXAMINATION: US NONINVASIVE ASSESSMENT OF THE BOTH LOWER EXTREMITY WITH ARTERIAL DUPLEX AND ANKLE BRACHIAL INDICES (ABIS) CLINICAL INFORMATION: Peripheral vascular disease. COMPARISON: May 08, 2023. The demonstrated severe inflow disease below the right ankle and below the left calf. TECHNIQUE: Duplex Doppler techniques with waveform analysis and measurement of velocities in the common femoral, profunda femoris, superficial femoral, popliteal and tibial arteries were performed. In addition, ankle pulse volume recordings, ankle pressure measurements and ankle brachial indices were obtained of the both lower extremity arterial system. The study was performed only at rest. FINDINGS: NONINVASIVE ASSESSMENT OF THE ARTERIES OF BILATERAL LOWER EXTREMITIES WITH ABIs: RIGHT LEG: Ankle-brachial index: 0.97. Ankle PVR: Abnormal waveforms. LEFT LEG: Ankle-brachial index: 0.89. Left ankle PVR: Abnormal waveforms. ZULLY Reference: 0.9 - 1.4 = normal - no significant arterial disease 0.7 - 0.89 = mild peripheral arterial disease 0.51 - 0.69 = moderate peripheral arterial disease 0.50 = severe peripheral arterial disease RIGHT LOWER EXTREMITY DUPLEX ULTRASOUND: Common femoral artery: 169 cm/s. Biphasic waveforms. Profunda femoris artery: 199 cm/s. Biphasic waveforms. Superficial femoral artery (proximal): 190 cm/s. Biphasic waveforms. Superficial femoral artery (mid): 153 cm/s. Biphasic waveforms. Superficial femoral artery (distal): 101 cm/s. Biphasic waveforms. Popliteal artery: 60 cm/s Biphasic waveforms. Posterior tibial artery: 85 cm/s Monophasic waveforms. Spectral broadening. Anterior tibialis artery: 8 cm/s. Monophasic waveforms. Collateral vessels. Dorsalis pedis artery: 113 cm/s. Monophasic waveforms. Spectral broadening. LEFT LOWER EXTREMITY DUPLEX ULTRASOUND: Common femoral artery: 93 cm/s. Triphasic waveforms. Profunda femoris artery: 138 cm/s. Biphasic waveforms. Superficial femoral artery (proximal): 65 cm/s. Biphasic waveforms. Superficial femoral artery (mid): There is a stent with the normal patency 73 cm/s. Biphasic waveforms. Superficial femoral artery (distal): There is a patent stent 91cm/s. Biphasic waveforms. Popliteal artery: 43 cm/s Monophasic waveforms. Posterior tibial artery: 48 cm/s Monophasic waveforms. Dorsalis pedis artery: 15 cm/s. Monophasic waveforms. US/US arterial duplex BI w/ ZULLY IMPRESSION: Severe inflow disease from the right posterior tibialis artery to the right dorsalis base artery. Severe inflow disease from the left popliteal artery to the left dorsalis pedis artery. Moderate inflow disease throughout the interrogated vessels both lower extremities. There is a patency of stent, left superficial femoral artery. Electronically signed by: Jason Hartley MD 05/14/2024 09:07 AM [facility]
--- OUTSIDE RECORDS SUMMARY | 2024-05-13 08:55 | XMS_ITS | Patient Health Record ---
Author Organization [facility] Address [address] [place] [address] Care Team Providers Care Professor Of Visual Arts Name Role Phone HUMPHREY POLLARD Primary Care Provider Arcenio Espinal [phone] ALLERGIES No Known Allergies RESULTS Component Value Reference Range Notes Pathology Reviewed date:10/22/2023 08:05:14 AM Interpretation: Performing Lab:[facility], [address] [place] [id number] Notes/Report: REASON FOR REFERRAL No Information MEDICATIONS Medication SIG (Take, Route, Frequency, Duration) Notes Start Date End Date Status Ezetimibe 10 MG 1 tablet Orally Once a day Active Aspir-81 81 MG 1 tablet Orally Once a day Active Vitamin D3 2000 UNIT 1 capsule Orally On ce a day Active Metoprolol Tartrate 25 MG 1 tablet with food Orally Twice a day Active Lisinopril 2.5 MG 1 tablet Orally Once a day Active Atorvastatin Calcium 80 MG 1 tablet Oral ly Once a day Active Aspirin Low Dose 81 MG TAKE 1 TABLET BY MOUTH EVERY DAY Oral for 90 Active Metoprolol Succinate ER 50 MG Oral for 90 Active Xarelto 2.5 MG Oral for 60 Act jigar Isosorbide Mononitrate ER 30 MG TAKE 1 TABLET BY MOUTH EVERY DAY Oral for 90 Active SOCIAL HISTORY Tobacco Use: Social History Observation Description Date Details (start date - stop date) Current Smoker NA - NA Sex Assigned At : Social History Observation Description Sex Assigned At Unknown Tobacco Use/Smoking Question Answer Notes Patient is a current smoker How often do you smoke cigarettes? every day How many cigarettes a day do you smoke? 21-30 How soon after you wake up d o you smoke your first cigarette? within 5 minutes Are you interested in quitting? Thinking about q uitting PROBLEMS Problem Type ICD Code Onset Dates Problem Status W/U Status Risk SNOMED Code Notes Problem Encounter for screening for malignant neoplasm of colon (Z12.11) Active confirmed 380800025 Problem Encounter for screening for malignant neoplasm of rectum (Z12.12) Active confirmed Screening fo r malignant neoplasm of rectum (406862146) Problem Preprocedural examination (Z01.818) Active confirmed 485598151 Problem Pre-procedural examination (Z01.818) Active confirmed [id number] Problem History of colon polyps (Z86.010) Active confirmed History of polyp of colon (493513823) Problem Diverticulosis of large intestine without perforation or abscess without bleeding (K57.30) Active confirmed Diverticul ar disease of colon (110098756) VITAL SIGNS Blood pressure diastolic 00 mm Hg 07/03/2023 Height 70.5 in 07/03/2023 Blood pressure systolic 00 mm Hg 07/03/2023 Weight 236 lbs 07/03/2023 BMI 33.38 kg/m2 07/03/2023 Encounters Encounter Location Date Provider Diagnosis [facility] Outpatient [address] [place] [phone] 10/10/2023 Arcenio Gomez Colon cancer screeni ng Z12.11 ; Colon polyps K63.5 ; Family history of colon cancer Z80.0 ; Diverticulosis of large intestine without perforation or abscess without bleeding K57.30 and Other hemorrhoids K64.8 [facility] [address] [place] [id number] 07/03/2023 Arcenio Gomez History of colon sampson yps Z86.010 ; Preprocedural examination Z01.818 and Encounter for screening for malignant neoplasm of colon Z12.11 [facility] [address] [place] [id number] 07/03/2023 Arcenio Gomez ASSESSMENTS Encounter Date Diagnosis Assessment Notes Treatment Notes Treatment Clinical Notes 10/10/2023 Colon cancer screening (ICD-10 - Z12.11) 10/10/2023 Colon polyps (ICD-10 - K63.5) 07/03/2023 Preprocedural examination (ICD-10 - Z01.818) 07/03/2023 History of colon polyps (ICD-10 - Z86.010) Do not take aspirin on the day of the colonoscopy Stop Xarelto for three days before the colonoscopy We will get clearance from Dr. Orosco 10/10/2023 Family history of colon cancer (ICD-10 - Z80.0) 07/03/2023 Encounter for screening for malignant neoplasm of colon (ICD-10 - Z12.11) 10/10/2023 Diverticulosis of large intestine without perforation or abscess without bleeding (ICD-10 - K57.30) 10/10/2023 Other hemorrhoids (ICD-10 - K64.8) PLAN OF TREATMENT Future Test Test Name Order Date COLONOSCOPY 07/11/2016 COLONOSCOPY 12/27/2017 COLONOSCOPY 07/03/2023 Insurance Providers Payer Name Payer Address Payer Phone Subscriber Number Group Number Insured Name Patient Relationship to Insured Coverage Start Date Coverage End Date [facility] [employer] [address] [place] [address] [phone] [id number] ELEAZAR CRAWFORD Self - patient is the insured MEDICAL (GENERAL) HISTORY Medical History History ICD Code Colonoscopy age 51--he reports that some polyps were removed--in [place],DM,CVA,Lung disease,renal dise ase Hyperlipidemia CAD--4V CABG in 08/2016 PVD Colonoscopy 03/2018 with hyperplastic sampson typs He thinks he has atrial fibrillation. He is followed by Dr. Orosco. Surgical History Surgery Date(Month/Year) Vocal cords 4V CABG 09/20/2016 Vascular left leg 2020 Right carotid endarterectomy 2018
--- OUTSIDE RECORDS SUMMARY | 2024-05-13 08:55 | XMS_ITS ---
Author Organization [facility] Address [address] [place] [address] Care Team Providers Care Criminal Judge Name Role Phone HUMPHREY POLLARD Primary Care Provider Arcenio Espinal [phone] Encounters Encounter Location Date Provider Diagnosis [facility] [address] [place] [address] 07/03/2023 Arcenio Gomez PLAN OF TREATMENT No Information
--- OUTSIDE RECORDS SUMMARY | 2024-05-13 08:55 | XMS_ITS ---
Author Organization [facility] Address [address] [place] [address] Care Team Providers Care Strategy Director Name Role Phone HUMPHREY POLLARD Primary Care Provider Arcenio Espinal Unavailable [phone] ALLERGIES No Known Allergies REASON FOR VISIT Patient presents today for a colon recall MEDICATIONS Medication SIG (Take, Route, Frequency, Duration) Notes Start Date End Date Status Vitamin D3 2000 UNIT 1 capsule Orally On ce a day Active Aspirin Low Dose 81 MG TAKE 1 TABLET BY MOUTH EVERY DAY Oral for 90 Active Metoprolol Succinate ER 50 MG Oral for 90 Active Xarelto 2.5 MG Oral for 60 Act jigar Isosorbide Mononitrate ER 30 MG TAKE 1 TABLET BY MOUTH EVERY DAY Oral for 90 Active Ezetimibe 10 MG 1 tablet Orally Once a day Active Aspir-81 81 MG 1 tablet Orally Once a day Active Metoprolol Tartrate 25 MG 1 tablet with food Orally Twice a day Active Lisinopril 2.5 MG 1 tablet Orally Once a day Active Atorvastatin Calcium 80 MG 1 tablet Oral ly Once a day Active SOCIAL HISTORY Tobacco Use: Social History [...] W/U Status Risk SNOMED Code Notes Problem History of colon polyps (Z86.010) Active confirmed History of polyp of colon (116010963) VITAL SIGNS BMI 33.38 kg/m2 07/03/2023 Blood pressure systolic 00 mm Hg 07/03/19 24 Blood pressure diastolic 00 mm Hg 024 Height 70.5 in 07/03/2023 Weight 236 lbs 07/03/2023 Encounters Encounter Location Date Provider Diagnosis [facility] [address] [place] [address] 07/03/2023 Arcenio Gomez History of colon sampson yps Z86.010 ; Preprocedural examination Z01.818 and Encounter for screening for malignant neoplasm of colon Z12.11 ASSESSMENTS Encounter Date Diagnosis Assessment Notes Treatment Notes Treatment Clinical Notes 07/03/2023 History of colon polyps (ICD-10 - Z86.010) Do not take aspirin on the day of the colonoscopy Stop Xarelto for three days before the colonoscopy We will get clearance from Dr. Orosco 07/03/2023 Preprocedural examination (ICD-10 - Z01.818) 07/03/2023 Encounter for screening for malignant neoplasm of colon (ICD-10 - Z12.11) PLAN OF TREATMENT Treatment Notes Assessment Notes History of colon polyps Do not take aspirin on the day of the colonoscopy Stop Xarelto for three days before the colonoscopy We will get clearance from Dr. Orosco Future Test Test Name Order Date COLONOSCOPY 07/03/2023 Next Appt Details Follow Up: prn, Reason: Progress Notes * Examination Category Sub-Category Detail Notes General Examination GENERAL APPEARANCE: pleasant , well nourished, well developed, in no acute distress HEAD: EYES: sclera non-icteric EARS: NOSE: THROAT: NECK/THYROID: no cervical lymphade nopathy, neck supple HEART: S1, S2 normal CHEST: LUNGS: clear to auscultatio n bilaterally ABDOMEN: normal bowel sounds, no guarding or rigidity, no guarding or rigidity, no masses palpable, soft, nontender, nondistended NEUROLOGIC: alert and oriented SKIN: nonjaundiced, no spi kimberly angiomata EXTREMITIES: no edema PERIPHERAL PULSES: BACK: BREASTS: MUSCULOSKELETAL: MALE GENITOURINARY: LYMPH NODES: RECTAL EXAM: FEMALE GENITOURINARY: ORAL CAVITY: mucosa moist
--- OUTSIDE RECORDS SUMMARY | 2024-05-13 08:55 | XMS_ITS ---
Author Organization [facility] Address [address] [place] [address] Care Team Providers Care Summer Child Caregiver Name Role Phone HUMPHREY POLLARD Primary Care Provider Arcenio Espinal Unavailable [phone] REASON FOR VISIT screening colon PROBLEMS Problem Type ICD Code Onset Dates Problem Status W/U Status Risk SNOMED Code Notes Problem Diverticulosis of large intestine without perforation or abscess without bleeding (K57.30) Active confirmed Diverticul ar disease of colon (739653191) Encounters Encounter Location Date Provider Diagnosis [facility] [address] [place], [place] [phone] 10/10/2023 Arcenio Gomez Colon cancer scree jaylen Z12.11 ; Colon polyps K63.5 ; Family history of colon cancer Z80.0 ; Diverticulosis of large intestine without perforation or abscess without bleeding K57.30 and Other hemorrhoids K64.8 ASSESSMENTS Encounter Date Diagnosis Assessment Notes Treatment Notes Treatment Clinical Notes 10/10/2023 Colon cancer screening (ICD-10 - Z12.11) 10/10/2023 Colon polyps (ICD-10 - K63.5) 10/10/2023 Family history of colon cancer (ICD-10 - Z80.0) 10/10/2023 Diverticulosis of large intestine without perforation or abscess without bleeding (ICD-10 - K57.30) 10/10/2023 Other hemorrhoids (ICD-10 - K64.8) PLAN OF TREATMENT No Information
== END 2024-05-13 08:32 | disposition home or self-care (01) ==
LOC: HO.US 08:31
PROVIDERS: PCP Nurse Practitioner Family; Visit Provider Surgery Vascular Surgery
DX: I65.23 Occlusion and stenosis of bilateral carotid arteries (principal); I70.213 Atherosclerosis of native arteries of extremities with intermittent claudication, bilateral legs
CPT/HCPCS: 93880; 93922; 93925

== ENCOUNTER → 2024-05-13 08:33 | Outpatient (BNV) | payer MEDICARE, SELFPAY | PROVIDERS: PCP Nurse Practitioner Family; Visit Provider Radiology Diagnostic Radiology | DX: I65.23 Occlusion and stenosis of bilateral carotid arteries (principal); I70.203 Unspecified atherosclerosis of native arteries of extremities, bilateral legs; Z95.820 Peripheral vascular angioplasty status with implants and grafts | CPT/HCPCS: 93880; 93923; 93925 ==

== ENCOUNTER 2024-05-27 08:15 | Outpatient (REF) | payer MEDICARE, SELFPAY ==
--- OUTSIDE RECORDS SUMMARY | 2024-05-27 08:35 | XMS_ITS ---
Author Organization [facility] Address [address] [place] [address] Care Team Providers Care Nursing Technician Name Role Phone HUMPHREY POLLARD Primary Care Provider Arcenio Espinal Unavailable [phone] REASON FOR VISIT screening colon PROBLEMS Problem Type ICD Code Onset Dates Problem Status W/U Status Risk SNOMED Code Notes Problem Diverticulosis of large intestine without perforation or abscess without bleeding (K57.30) Active confirmed Diverticul ar disease of colon (475702543) Encounters Encounter Location Date Provider Diagnosis [facility] [place] [facility] Outpatient [address] [place], [place] [phone] 10/10/2023 Arcenio Gomez Colon cancer scree jaylen [...]
--- OUTSIDE RECORDS SUMMARY | 2024-05-27 08:36 | XMS_ITS ---
Author Organization [facility] Address [address] [place] [address] Care Team Providers Care Marketing Communication Manager Name Role Phone HUMPHREY POLLARD Primary Care Provider Arcenio Espinal Unavailable [phone] ALLERGIES No Known Allergies REASON FOR VISIT [...] Active confirmed History of polyp of colon (422511374) VITAL SIGNS Blood pressure systolic 00 mm Hg 07/03/19 24 Blood pressure diastolic 00 mm Hg 024 Height 70.5 in 07/03/2023 Weight 236 lbs 07/03/2023 BMI 33.38 kg/m2 07/03/2023 Encounters Encounter Location Date Provider Diagnosis [facility] [address] [place] [address] 07/03/2023 Arcenio Gomez History of colon sampson [...]
--- OUTSIDE RECORDS SUMMARY | 2024-05-27 08:36 | XMS_ITS ---
Author Organization [facility] Address [address] [place] [address] Care Team Providers Care Aircraft Technician Name Role Phone HUMPHREY POLLARD Primary Care Provider Arcenio Espinal [phone] Encounters Encounter Location Date Provider Diagnosis [facility] [address] [place] [address] 07/03/2023 Arcenio Gomez PLAN OF TREATMENT No Information
--- OUTSIDE RECORDS SUMMARY | 2024-05-27 08:36 | XMS_ITS | Patient Health Record ---
Author Organization [facility] Address [address] [place] [address] Care Team Providers Care Coach Name Role Phone HUMPHREY POLLARD Primary Care Provider Arcenio Espinal [phone] ALLERGIES No Known Allergies RESULTS Component Value Reference Range Notes Pathology Reviewed date:10/22/2023 08:05:14 AM Interpretation: Performing Lab:[facility], [address] [place] [id number] Notes/Report: REASON FOR REFERRAL No Information MEDICATIONS [...] malignant neoplasm of colon (Z12.11) Active confirmed 325820842 Problem Diverticulosis of large intestine without perforation or abscess without bleeding (K57.30) Active confirmed Diverticul ar disease of colon (402821528) Problem Encounter for screening for malignant neoplasm of rectum (Z12.12) Active confirmed Screening fo r malignant neoplasm of rectum (888329244) Problem Preprocedural examination (Z01.818) Active confirmed 085301496 Problem History of colon polyps (Z86.010) Active confirmed History of polyp of colon (392108380) Problem Pre-procedural examination (Z01.818) Active confirmed [id number] VITAL SIGNS Blood pressure diastolic 00 mm Hg 07/03/2023 Height 70.5 in 07/03/2023 Blood pressure systolic 00 mm Hg 07/03/2023 Weight 236 lbs 07/03/2023 BMI 33.38 kg/m2 07/03/2023 Encounters Encounter Location Date Provider Diagnosis [facility] [place] Outpatient [address] [place] [id number] 10/10/2023 Arcenio Gomez Colon cancer screeni ng Z12.11 ; Colon polyps K63.5 ; Family history of colon cancer Z80.0 ; Diverticulosis of large intestine without perforation or abscess without bleeding K57.30 and Other hemorrhoids K64.8 [facility] [address] [place] [address] 07/03/2023 Arcenio Gomez History of colon sampson yps Z86.010 ; Preprocedural examination Z01.818 and Encounter for screening for malignant neoplasm of colon Z12.11 [facility] [address] [place] [address] 07/03/2023 Arcenio Gomez ASSESSMENTS Encounter Date Diagnosis [...] Insured Coverage Start Date Coverage End Date [facility] [address] [place] [address] [phone] [id number] ELEAZAR CRAWFORD Self - patient is the insured MEDICAL (GENERAL) HISTORY Medical History History ICD Code Colonoscopy age 51--he reports that some polyps were removed--in [place] Denies CO,DM,CVA,Lung disease,renal dise ase Hyperlipidemia CAD--4V CABG in 08/2016 PVD Colonoscopy 03/2018 with hyperplastic sampson typs He thinks he has atrial fibrillation. He is followed by Dr. Orosco. Surgical History Surgery Date(Month/Year) Vocal cords 4V CABG 09/20/2016 Vascular left leg 2020 Right carotid endarterectomy 2018
[2024-05-27 09:59] LABS: MANUAL DIFF FLAG NO
[2024-05-27 10:03] LABS: Appearance Urine Clear; Basophils Absolute Auto 0.1 X10*3/uL (0.0-0.2); Basophils Percent Auto 0.5 % (0-2); Color Urine Dark Yellow; Eosinophils Absolute Auto 0.4 X10*3/uL (0.0-0.4); Eosinophils Percent Auto 2.9 % (0-4); Glucose Urine UA Negative (Negative); Hematocrit 45.5 % (42.0-52.0); Hemoglobin 15.7 g/dl (14.0-18.0); Imm Gran Abs Auto 0.06 X10*3/uL (0.00-0.03); Imm Gran Pct Auto 0.5 % (0.0-0.4); Leukocyte Esterase Urine Negative (Negative); Lymphocytes Absolute Auto 2.1 X10*3/uL (1.2-4.9); Mean Corpuscular HGB Conc 34.5 g/dl (31.0-36.0); Mean Corpuscular Hemoglobin 33.4 pg (27.0-33.0); Mean Corpuscular Volume 96.8 fL (80.0-98.0); Monocytes Absolute Auto 0.7 X10*3/uL (0.1-1.2); Monocytes Percent Auto 5.7 % (2-11); Neutrophils Absolute Auto 9.1 x10*3/uL (2.0-8.3); Neutrophils Percent Auto 73.4 % (45-73); Nitrite Urine Negative (Negative); PH 5.5 (5.0-9.0); Platelet Count 204 X10*3/uL (160-400); Red Cell Distribution Width 12.7 % (11.0-16.0); Urine Blood Negative (Negative); Urine Ketones Negative (Negative); Urine Protein Negative (Neg-Trace); White Blood Count 12.4 X10*3/uL (4.8-10.8)
[2024-05-27 10:25] LABS: Alanine Aminotransferase 41 U/L (0-40); Albumin Level 3.9 g/dL (3.5-5.0); Alkaline Phosphatase 75 U/L (39-117); Anion Gap 9 (12-20); Aspartate Amino Transferase 31 U/L (5-37); Bilirubin Total 0.6 mg/dL (0.0-1.0); Blood Urea Nitrogen 11 mg/dL (9-16); Calcium 8.8 mg/dL (8.4-10.2); Carbon Dioxide 28 mmol/L (22-29); Chloride 108 mmol/L (96-108); Cholesterol 109 mg/dL (<200); Estimated Glomerular Filt Rate > 60; Glucose Fasting 116 mg/dL (60-99); HDL Cholesterol 32 mg/dL (>40); LDL Cholesterol Calculated 58 mg/dL (<100); Potassium 4.3 mmol/L (3.3-5.1); Sodium 141 mmol/L (135-145); Total Protein 6.8 g/dL (6.5-8.0); Triglycerides 97 mg/dL (<150)
[2024-05-27 10:34] LABS: Prostate Specific Antigen Scr 0.64 ng/mL (<0.05-4.0)
[2024-05-27 10:35] LABS: TSH reflex Free T4 2.11 uIU/mL (0.32-4.0); Vitamin D 25-OH Total 94.2 ng/mL (>30)
== END 2024-05-27 08:16 | disposition home or self-care (01) ==
LOC: HO.HMGCLDS 08:15
PROVIDERS: PCP Nurse Practitioner Family; Visit Provider Nurse Practitioner Family
DX: I73.9 Peripheral vascular disease, unspecified (principal); I10 Essential (primary) hypertension; E78.5 Hyperlipidemia, unspecified; E55.9 Vitamin D deficiency, unspecified; Z12.5 Encounter for screening for malignant neoplasm of prostate; I65.23 Occlusion and stenosis of bilateral carotid arteries
CPT/HCPCS: 36415; 80053; 80061; 81003; 82306; 84153; 84443; 85025; 99212

== ENCOUNTER 2024-05-27 10:45 | Outpatient (AMB) | payer MEDICARE, SELFPAY ==
--- NOTE | 2024-05-27 11:08 | A.OFFVIS_ITS ---
Vital Signs 05/27/24 11:10 05/27/24 11:22 Height 5 ft 10.5 in Weight 240 lb BMI 33.9 BP 104/60 104/60 Blood Pressure Location Lt brachial Rt brachial Position Sitting Sitting Intake Visit Reasons: 1yr follow up s/p Arterial/Carotid US 05/13/24 Intake Note: 1 yr follow up arterial & Carotid US follow up 05/13/24 w/ Hx of Right CEA 11/04/18 & Angio 04/27/20 ( dx @ [facility]) & 09/29/20 Left Angio w/ Stent ([facility]). No complaints Dean Of Admissions Required: No Accompanied by: Self / Same As Patient Allergies No Known Allergies Allergy (Verified 05/27/24 11:15) HPI HPI 1yr follow up s/p Arterial/Carotid US 05/13/24: Details: The patient is a 68-year-old male presenting with a follow-up evaluation for peripheral vascular disease. He has a history of performing left superficial femoral artery atherectomy and stent placement on September 29, 2020, due to stenosis. On November 04, 2018, the patient underwent right carotid endarterectomy. He now presents for routine lower extremity and carotid surveillance. He remains asymptomatic from both He reports decreased physical activity due to a year-long cessation of walking but recently resumed ambulation, achieving 1.4 miles per session with an objective to increase this distance incrementally. There is a concerted effort towards smoking cessation with the assistance of a nicotine patch, reflecting effective reduction to one cigarette today. [facility] Medical History Fatty liver CAD (coronary artery disease) Ischemic cardiomyopathy Bilateral carotid artery stenosis PVD (peripheral vascular disease) Dyslipidemia History of colon polyps Nicotine dependence, cigarettes, uncomplicated Leukocytosis Surgical History History of colonoscopy (~03/2018) History of right-sided carotid endarterectomy (~10/2018) History of atherectomy (~09/2020) History of coronary artery bypass graft (~08/2016) Family History Father Stroke CVD (cardiovascular disease) Substance use disorder Mother CVD (cardiovascular disease) Substance use disorder Brother No problems noted. Sister Substance use disorder Social History (Updated 05/27/24 @ 11:18 by Dotty Posada [facility]) Housing: House Alcohol intake: current Alcohol intake frequency: a few times a week Alcohol type: beer Patient Tobacco Use Status: Current everyday Tobacco user Cigarettes Per Day: 10 Years Smoked: (current smoker - onset 21yo, 1-1.5ppd x 45yrs, 50pyh) e-Cigarette/Vaping Use: Never Used Second Hand Smoke Exposure: No service: Yes Current occupational status: employed and retired Current occupational exposures/hazards: Yes Cognitive needs: No Hearing needs: No Vision needs: No Review of Systems Const All systems reviewed & are unremarkable except as noted in HPI and below Reports no additional complaints ENT Reports Normal hearing present Card Denies chest pain, Denies chest pain at rest, Denies chest pain with activity and Denies pedal edema Resp Denies cough GI Denies abdominal pain Musc Denies abnormal gait, Denies muscle cramps and Denies radiating pain into limb Skin/Breast Denies skin ulcer and Denies wounds Neuro Reports Normal hearing present and Denies abnormal gait Psych Reports no additional complaints Physical Exam Vital Signs: Last Vital Signs BP 104/60 05/27/24 11:22 BMI result Body Mass Index 33.9 Const General: cooperative, healthy appearing and comfortable Orientation/consciousness: oriented to person, oriented to place and oriented to time HEENT Head: Yes normal to inspection Neck Neck: Yes normal visual inspection Carotids: no bruits Chest Chest palpation & inspection: normal inspection of the chest Resp Effort & Inspection: normal respiratory effort and able to speak in complete sentences Auscultation: clear to auscultation bilaterally, no crackles, no rales, no rhonchi and no wheezes Cardio Rate: regular rate Rhythm: regular rhythm Heart sounds: S1 normal heart sound present and S2 normal heart sound present Bruits: no carotid bruits Peripheral pulses: Peripheral pulses 2+ throughout GI Inspection: Yes normal to inspection Skin Wounds: no wounds Hair: normal Neuro General: oriented to person, oriented to place and oriented to time Cranial nerves: Yes CN's II-XII intact bilaterally and Yes Normal hearing present Cognition (Neuro): normal cognition Motor exam (neuro): 5/5 motor strength present throughout Extrem Other: venous exam: No significant superficial varicosities or spider telangiectasias, minimal edema General: No clubbing, No cyanosis and No edema Psych Appearance: grossly normal Mental Status: mental status grossly normal Speech and movement: Normal speech and movement present Results Reviewed Results Reviewed: Arterial testing dated 05/13/2024 demonstrates ZULLY on the right of 0.97 and on the left of 0.89 Carotid testing dated 05/13/2024 demonstrates 0-49% stenosis bilaterally. Written report and images of both were reviewed. They appears similar to prior studies. Assessment & Plan Assessment & Plan (1) PVD (peripheral vascular disease): Comment: 04/27/2020 - diagnostic angiogram at [facility]; 09/29/2020- left SFA atherectomy with stent placement Code(s): I73.9 - Peripheral vascular disease, unspecified Category: Medical Plan: In short patient has stable claudication. I did review the pathophysiology of peripheral vascular disease with the patient. In addition we did discuss routine conservative measures including a healthy diet and the importance of exercise and ambulation. We did discuss risk factor modification. The patient will continue to to follow-up with surveillance follow-up in approximately 1 year. Thank you for allowing us to participate in this patient's care. If there are any questions or concerns please do not hesitate to contact us. (2) Bilateral carotid artery stenosis: Comment: 11/04/2018 - right carotid endarterectomy Code(s): I65.23 - Occlusion and stenosis of bilateral carotid arteries Category: Medical Plan: In short patient has asymptomatic carotid disease. We have reviewed signs and symptoms of a stroke. We also discussed risk factor modification inclusive a healthy diet low in cholesterol. The patient will follow up with us with surveillance ultrasound of the carotids 1 year. Should there be any changes or signs or symptoms of a stroke we will be happy to see them back sooner. Thank you for allowing us to participate in this patient's care. If there are any questions or concerns please do not hesitate to contact us. Plan Patient was informed and verbally consented to the use of an ambient scribe for clinic note documentation during this visit. Orders: Orders US arterial duplex LE BI 1 Year I73.9 - Peripheral vascular disease, unspecified US carotid duplex BI 1 Year I65.23 - Occlusion and stenosis of bilateral carotid arteries Patient Instructions: - Continue using the nicotine patch to assist with smoking cessation. - Gradually increase walking distance as tolerated, aiming for longer distances. - Regularly monitor progress with a fitness tracker. - Follow up in one year for routine vascular imaging studies. - Maintain awareness of any new symptoms or changes in health condition, and seek care if needed. Coding Level of Care Code Est Pt Level 4 (09969) Complex EM visit Add On G2211 Diagnoses PVD (peripheral vascular disease) I73.9 Bilateral carotid artery stenosis I65.23
[2024-05-27 11:10] VITALS: BP 104/60; BMI 33.9
[2024-05-27 11:22] VITALS: BP 104/60
== END 2024-05-27 11:40 | disposition home or self-care (01) ==
PROVIDERS: PCP Nurse Practitioner Family; Visit Provider Surgery Vascular Surgery
DX: I73.9 Peripheral vascular disease, unspecified (principal); I65.23 Occlusion and stenosis of bilateral carotid arteries
CPT/HCPCS: 99214; G2211

== ENCOUNTER 2024-05-28 10:46 | Outpatient (REF) | payer MEDICARE, SELFPAY ==
--- NOTE | ~2024-05-28 | XR_ITS ---
EXAMINATION: XR CHEST CLINICAL INFORMATION: D72.829 - Elevated white blood cell count, unspecified COMPARISON: April 18, 2022. TECHNIQUE: 2 views of the chest were obtained. FINDINGS: No consolidation, pleural effusion or pneumothorax. No hyperinflation. Pulmonary reticular pattern. Sternal wires and mediastinal vascular clips likely CABG procedure. Heart silhouette appears unchanged with calcified plaque aortic arch. Multilevel thoracic spondylosis. XR/XR chest 2V IMPRESSION: No acute airspace disease. Electronically signed by: Jason Hartley MD 05/30/2024 01:55 PM EST
--- OUTSIDE RECORDS SUMMARY | 2024-05-28 12:53 | XMS_ITS ---
Author Organization [facility] Address [address] [place] [address] Care Team Providers Care Transplant Rn Name Role Phone HUMPHREY POLLARD Primary Care Provider Arcenio Espinal [phone] Encounters Encounter Location Date Provider Diagnosis [facility] [address] [place] [address] 07/03/2023 Arcenio Gomez Plan Of Treatment No Information Progress Notes * ELEAZAR CRAWFORDDOB:[birth year] (68 yo M)Acc No.[id number]:07/03/2023 Patient:?ELEAZAR CRAWFORD :1955???Age:68 Y???Sex:Male Address:[address] [address], [place], [address] * true * Date:? Generated for Juliet florez/Osvaldo/eTransmitting on:?2024 12:53 PM EST
--- OUTSIDE RECORDS SUMMARY | 2024-05-28 12:53 | XMS_ITS ---
Author Organization [facility] Address [address] [place] [address] Care Team Providers Care Conservation Policy Analyst Name Role Phone HUMPHREY POLLARD Primary Care Provider Arcenio Espinal Unavailable [phone] REASON FOR VISIT screening colon Problems Problem Type SNOMED Code ICD Code Onset Dates Problem Status W/U Status Risk Notes Problem Diverticular disease of colon (882947324) Diverticulosis of large intestine without perforation or abscess without bleeding (K57.30) Active confirmed Encounters Encounter Location Date Provider Diagnosis [facility] [place] [address] [place], [place] [phone] 10/10/2023 Arcenio Gomez Colon cancer scree jaylen [...] * ELEAZAR CRAWFORDDOB:[birth year] (69 yo M)Acc No.[id number]:10/10/2023 COLON WITH MAC Patient:?ELEAZAR CRAWFORD Provider:?Arcenio Gomez MD :1955???Age:68 Y???Sex:Male Johnnie e:10/10/2023 Address:[facility] [address], [facility], [id number] Pcp:HUMPHREY POLLARD Subjective: * Chief Complaints: * ???1. Screening colon. * Medical History:? Objective: * Vitals:? Assessment: * Assessment: 1.?Colon cancer screening - Z12.11 (Primary)???2.?Colon polyps - K63.5???3.?Family history of colon cancer - Z80.0???4.?Diverticulosis of large intestine without perforation or abscess without bleeding - K57.30???5. Other hemorrhoids - K64.8??? Plan: * Treatment: * Procedure Codes:?44931 LESIO N REMOVAL COLONOSCOPY, Modifiers: PT , 0529F INTRVL 3+YRS PTS CLNSCP DOCD, Modifiers: 8P , 0528F RCMND FLW-UP 10 YRS DOCD, Modifiers: 1P * * The named appointment provid er may or may not be the originator of this progress note, and it is not deemed complete until electronically signed by the appointment provider. Sign off status: Pending * Provider:?Arcenio Gomez MD Date:? 024 Generated for Juliet florez/Osvaldo/Elinitting on:?2024 12:53 PM EST
--- OUTSIDE RECORDS SUMMARY | 2024-05-28 12:54 | XMS_ITS ---
Author Organization [facility] Address [address] [place] [address] Care Team Providers Care Chief Inspector Name Role Phone HUMPHRYE POLLARD Primary Care Provider Arcenio Espinal Unavailable [phone] Allergies No Known Allergies REASON FOR VISIT Patient presents today for a colon recall Medications Medication SIG (Take, Route, Frequency, Duration) Notes [...] tablet Oral ly Once a day Active Social History Tobacco Use: Social History Observation Description Date Details (start date - stop date) Current Smoker NA - NA Tobacco Use/Smoking Question Answer Notes Patient is a current smoker How often do you smoke cigarettes? every day How many cigarettes a day do you smoke? 21-30 How soon after you wake up d o you smoke your first cigarette? within 5 minutes Are you interested in quitting? Thinking about q uitting Section Notes: Smoker; 6 beers once a week in the winter and daily over the summer Problems Problem Type SNOMED Code ICD Code Onset Dates Problem Status W/U Status Risk Notes Problem History of polyp of colon (361031084) History of colon polyps (Z86.010) Active confirmed Vital Signs Blood pressure systolic 00 mm Hg 07/03/19 24 Blood pressure diastolic 00 mm Hg 024 Height 70.5 in 07/03/2023 Weight 236 lbs 07/03/2023 BMI 33.38 kg/m2 07/03/2023 Encounters Encounter Location Date Provider Diagnosis [facility] [address] [place] [address] 07/03/2023 Arcenio Gomez History of colon sampson yps Z86.010 ; Preprocedural examination Z01.818 and Encounter for screening for malignant neoplasm of colon Z12.11 Assessments Encounter Date Diagnosis (ICD Code) Assessment Notes Treatment Notes Treatment Clinical Notes Section Notes 07/03/2023 History of colon polyps (ICD-10 - Z86.010) Do not take aspirin on the day of the colonoscopy Stop Xarelto for three days before the colonoscopy We will get clearance from Dr. Orosco Overall, Mark appears well. I did recommend a followup colonoscopy for further screening purposes given his previous history of colon polyps, family history of colon cancer, and his last colonoscopy being over 5 years ago. We did review the rationale for that regard to colon cancer prevention. Full consent is obtained for this, including risks of bleeding and perforation. The procedure will be done with monitored anesthesia care. He was given the below instructions regarding adjustment of his medications for the procedure. We will also obtain a clearance note from his director of global talent, Dr. Orosco. Mark was comfortable with this plan. Thank you again for allowing me to participate in Mark's care. I shall continue to keep you advised of his progress. 07/03/2023 Preprocedural examination (ICD-10 - Z01.818) Overall, Mark appears well. I did recommend a followup colonoscopy for further screening purposes given his previous history of colon polyps, family history of colon cancer, and his last colonoscopy being over 5 years ago. We did review the rationale for that regard to colon cancer prevention. Full consent is obtained for this, including risks of bleeding and perforation. The procedure will be done with monitored anesthesia care. He was given the below instructions regarding adjustment of his medications for the procedure. We will also obtain a clearance note from his director of global talent, Dr. Orosco. Mark was comfortable with this plan. Thank you again for allowing me to participate in Mark's care. I shall continue to keep you advised of his progress. 07/03/2023 Encounter for screening for malignant neoplasm of colon (ICD-10 - Z12.11) Overall, Mark appears well. I did recommend a followup colonoscopy for further screening purposes given his previous history of colon polyps, family history of colon cancer, and his last colonoscopy being over 5 years ago. We did review the rationale for that regard to colon cancer prevention. Full consent is obtained for this, including risks of bleeding and perforation. The procedure will be done with monitored anesthesia care. He was given the below instructions regarding adjustment of his medications for the procedure. We will also obtain a clearance note from his director of global talent, Dr. Orosco. Mark was comfortable with this plan. Thank you again for allowing me to participate in Mark's care. I shall continue to keep you advised of his progress. Plan Of Treatment Treatment Notes Assessment Notes History of colon polyps Do not take aspirin on the day of the colonoscopy Stop Xarelto for three days before the colonoscopy We will get clearance from Dr. Orosco Future Test Test Name Order Date COLONOSCOPY 07/03/2023 Next Appt Details Follow Up: prn, Reason: Progress Notes * MARK CRAWFORDDOB:[birth year] (68 yo M)Acc No.[id number]:07/03/2023 Progress Notes Patient:?MARK CRAWFORD Provider:?Arcenio Gomez MD :1955???Age:68 Y???Sex:Male Johnnie e:07/03/2023 Address:[facility] [address], [facility] Pcp:HUMPHREY POLLARD Subjective: * Chief Complaints: * ???Patient presents today fo r a colon recall * HPI: ???incontinence:? I saw Mark in the office today for evaluation of colorectal cancer screening, personal history of colon polyps, and family history of colon cancer. ?I last saw Mark in March of 2018, at which time he underwent a followup colonoscopy with removal of only hyperplastic polyps. He did have a colonoscopy prior to that in [place] with removal of polyps. His family history is notable for his father having had colon cancer in his 80s. Mark presently feels well. He enjoys a good appetite, without any significant heartburn or dysphagia. His bowel movements have been regular, without any hematochezia nor melena. He denies any abdominal pain, jaundice, nor weight loss. He ?Laboratories in April revealed normal chemistries and renal function, normal LFTs, and a normal CBC. * ROS:?General/Constitutional:?Change in appetite?denies.?Chills?denies.?Fatigue?denies.?Ophthalmologic:?Comments?all negative.?ENT:?Comments?all negative.?Respiratory:?hemoptysis?denies.?Cough?denies.?Cardiovascular:?Chest pain?denies.?Orthopnea?denies.?Gastrointestinal:?Comments?See HPI for details.?Genitourinary:?Hematuria?denies.?Dysuria?denies.?Musculoskeletal:?Painful joints?denies.?Weakness?denies.?Skin:?Itching?denies.?Rash?denies.?Neurologic:?Headache?denies.?Seizures?denies.?Psychiatric:?Comments?all negative.? * Medical History:? * Surgical History:?Vocal cord s 4V CABG 09/20/2016Vascular left leg 2021Right carotid endarterectomy 2018 * Hospitalization/Major Diagno stic Procedure:?No Hospitalization History. * Family History:?Father: dece ased, Colon cancer in his 80's, diagnosed with Colon cancer.?Mother: , diagnosed with Heart disease.? * Social History:?Tobacco Use:?Tobacco Use/Smoking?Patient is a?current smoker,?How often do you smoke cigarettes??every day,?How many cigarettes a day do you smoke??21-30,?How soon after you wake up do you smoke your first cigarette??within 5 minutes,?Are you interested in quitting??Thinking about quitting.?Drugs/Alcohol:?Alcohol Screen?Points: 6, Interpretation: Positive.?Miscellaneous:?Marital status: Single. Occupation: [employer] retired. ???Smoker; 6 beers once a week in the winter and daily over the summer. * Medications:?TakingMetoprolo l Tartrate 25 MG Tablet 1 tablet with food Orally Twice a dayAtorvastatin Calcium 80 MG Tablet 1 tablet Orally Once a dayLisinopril 2.5 MG Tablet 1 tablet Orally Once a dayAspir-81 81 MG Tablet Delayed Release 1 tablet Orally Once a dayEzetimibe 10 MG Tablet 1 tablet Orally Once a dayVitamin D3 2000 UNIT Capsule 1 capsule Orally Once a dayMetoprolol Succinate ER 50 MG Tablet Extended Release 24 Hour Oral Aspirin Low Dose 81 MG Tablet Delayed Release TAKE 1 TABLET BY MOUTH EVERY DAY Oral Isosorbide Mononitrate ER 30 MG Tablet Extended Release 24 Hour TAKE 1 TABLET BY MOUTH EVERY DAY Oral Xarelto 2.5 MG Tablet Oral Medication List reviewed and reconciled with the patientTaking Metoprolol Tartrate 25 MG Tablet 1 tablet with food Orally Twice a dayTaking Atorvastatin Calcium 80 MG Tablet 1 tablet Orally Once a dayTaking Lisinopril 2.5 MG Tablet 1 tablet Orally Once a dayTaking Aspir-81 81 MG Tablet Delayed Release 1 tablet Orally Once a dayTaking Ezetimibe 10 MG Tablet 1 tablet Orally Once a dayTaking Vitamin D3 2000 UNIT Capsule 1 capsule Orally Once a dayTaking Metoprolol Succinate ER 50 MG Tablet Extended Release 24 Hour Oral Taking Aspirin Low Dose 81 MG Tablet Delayed Release TAKE 1 TABLET BY MOUTH EVERY DAY Oral Taking Isosorbide Mononitrate ER 30 MG Tablet Extended Release 24 Hour TAKE 1 TABLET BY MOUTH EVERY DAY Oral Taking Xarelto 2.5 MG Tablet Oral Medication List reviewed and reconciled with the patient * Allergies:?N.K.D.A.yes[Aller gies Verified] Objective: * Vitals:?Wt: 236 lbs, Ht: 70. 5 in, BMI:33.38 Index, BP: 00/00 mm Hg. * Examination: ???General Examination: ?GENERAL APPEARANCE:?pleasant, well nourished, well developed, in no acute distress.?EYES:?sclera non-icteric.?ORAL CAVITY:?mucosa moist.?NECK/THYROID:?no cervical lymphadenopathy, neck supple.?SKIN:?nonjaundiced, no spider angiomata.?HEART:?S1, S2 normal.?LUNGS:?clear to auscultation bilaterally.?ABDOMEN:?normal bowel sounds, no guarding or rigidity, no guarding or rigidity, no masses palpable, soft, nontender, nondistended.?EXTREMITIES:?no edema.?NEUROLOGIC:?alert and oriented.? Assessment: * Assessment: 1.?Preprocedural examination - Z01.818 (Primary)?2.?History of colon polyps - Z86.010?3.?Encounter for screening for malignant neoplasm of colon - Z12.11? Overall, Mark appears well . I did recommend a followup colonoscopy for further screening purposes given his previous history of colon polyps, family history of colon cancer, and his last colonoscopy being over 5 years ago. We did review the rationale for that regard to colon cancer prevention. Full consent is obtained for this, including risks of bleeding and perforation. The procedure will be done with monitored anesthesia care. He was given the below instructions regarding adjustment of his medications for the procedure. We will also obtain a clearance note from his director of global talent, Dr. Orosco. Mark was comfortable with this plan. Thank you again for allowing me to participate in Mark's care. I shall continue to keep you advised of his progress. Plan: * Treatment: Notes: Do not take aspirin on the day of the colonoscopy Stop Xarelto for three days before the colonoscopy We will get clearance from Dr. Orosco??2.?Encounter for screening for malignant neoplasm of colon?Procedure: COLONOSCOPY (Ordered for 07/03/2023)* Scheduled colon at [facility] on 10-10-2023 at 10:00 a.m. * Procedure Codes:?3017F COLOR ECTAL CA SCREEN DOC [id number] Pt scrn tbco and id as [id number] BP SCR NOT PRFRM REC REASON NOS * Follow Up:?prn * * Sign off status: Completed true * Provider:?Arcenio Gomez MD Date:? 024 Generated for Juliet florez/Osvaldo/eTjessicasmitting on:?2024 12:53 PM EST History and Physical Notes * HPI (History of Present Illness) Category Sub-Category Detail Notes Category Not es incontinence I saw Mark in the office today for evaluation of colorectal cancer screening, personal history of colon polyps, and family history of colon cancer. I last saw Mark in March of 2018, at which time he underwent a followup colonoscopy with removal of only hyperplastic polyps. He did have a colonoscopy prior to that in [place] with removal of polyps. His family history is notable for his father having had colon cancer in his 80s. Mark presently feels well. He enjoys a good appetite, without any significant heartburn or dysphagia. His bowel movements have been regular, without any hematochezia nor melena. He denies any abdominal pain, jaundice, nor weight loss. He Laboratories in April revealed normal chemistries and renal function, normal LFTs, and a normal CBC. Examination Category Sub-Category Detail Notes Category Not es General Examination GENERAL APPEARANCE: pleasant , well [...]
--- OUTSIDE RECORDS SUMMARY | 2024-05-28 12:54 | XMS_ITS | Patient Health Record ---
Author Organization [facility] Address [address] [place] [address] Care Team Providers Care Vp & General Counsel Name Role Phone HUMPHREY KELLEY Primary Care Provider Arcenio Espinal [phone] Allergies No Known Allergies Results Component Value Reference Range Notes Pathology Reviewed date:10/22/2023 08:05:14 AM Interpretation: Performing Lab:[facility], [address] [place] [id number] Notes/Report: Name: Henrry Crawford Age/Sex: 68/M : 1955 Unit#: [id number] Attend Dr: Arcenio Gomez MD Re10/10/23 Status : [facility] Location: [facility] Disch: SPEC : [id number] RECD : 10/10/231046 STATUS: [employer] WORKMAN NUM: [id number] FREEDOM: 10/10/23 [facility] DR: Arcenio Gomez MD ENTERED: 10/10/23-01 30 SP TYPE: Surgical OTHR DR: Humphrey Kelley [facility] ORDERED: HE Stain/3, Gross Micro L4 Diagnosis Colon, at 15 cm, sampson yp: Hyperplastic polyp. Clinical History Pre-Op Dx: Colon cancer screening Post-Op Dx: Hemorrho ids, diverticulosis, colon polyp Microscopic Description Microscopic sections reviewed. Material Received Polyp @ 15 cm Gross Description Received in formalin labeled ?polyp at 15 cm? is a 0.5 cm congested and hemorrhagic red- maroon papular tissu e fragment, submitted in toto in a cassette labeled A. CEDS Copies To: Humphrey Kelley [address] [id number] Arcenio Gomez MD [address] [place], [place] [id number] Signed (si gnature on file) Reina Cagle 10/11/23 1317 END OF REPORT Reason For Referral No Information Medications Medication SIG (Take, Route, Frequency, Duration) [...] MOUTH EVERY DAY Oral for 90 Active Social History Tobacco Use: Social History [...] quitting? Thinking about q uitting Section Notes: Nonsmoker since 04/26/2016; 6 beers once a week Smoker; 6 beers once a week in the winter and daily over the summer Smoker; 6 beers once a week in the winter and daily over the summer Problems Problem Type SNOMED Code ICD Code Onset Dates Problem Status W/U Status Risk Notes Problem 442302634 Encounter for screening for malignant neoplasm of colon (Z12.11) Active confirmed Problem Diverticular disease of colon (493996000) Diverticulosis of large intestine without perforation or abscess without bleeding (K57.30) Active confirmed Problem Screening for malignant neoplasm of rectum (004359690) Encounter for screening for malignant neoplasm of rectum (Z12.12) Active confirmed Problem 942089034 Preprocedural examination (Z01.818) Active confirmed Problem History of polyp of colon (924634808) History of colon polyps (Z86.010) Active confirmed Problem 512702562462332 Pre-procedural examination (Z01.818) Active confirmed Vital Signs Blood pressure diastolic 00 mm Hg 07/03/2023 Height 70.5 in 07/03/2023 Blood pressure systolic 00 mm Hg 07/03/2023 Weight 236 lbs 07/03/2023 BMI 33.38 kg/m2 07/03/2023 Encounters Encounter Location Date Provider Diagnosis [facility] [address] [place], [place] [id number] 10/10/2023 Arcenio Gomez Colon cancer screeni ng Z12.11 ; Colon polyps K63.5 ; Family history of colon cancer Z80.0 ; Diverticulosis of large intestine without perforation or abscess without bleeding K57.30 and Other hemorrhoids K64.8 [facility] [address] [place] [address] 07/03/2023 Arcenio Gomez History of colon sampson yps Z86.010 ; Preprocedural examination Z01.818 and Encounter for screening for malignant neoplasm of colon Z12.11 [facility] [address] [place] [address] 07/03/2023 Arcenio Gomez Assessments Encounter Date Diagnosis (ICD Code) Assessment Notes Treatment Notes Treatment Clinical Notes Section Notes 10/10/2023 Colon cancer screening (ICD-10 - Z12.11) 10/10/2023 Colon polyps (ICD-10 - K63.5) 07/03/2023 Preprocedural examination (ICD-10 - Z01.818) Overall, [...] also obtain a clearance note from his restoration officer, Dr. Orosco. Mark was comfortable with this plan. Thank you again for allowing me to participate in Mark's care. I shall continue to keep you advised of his progress. 07/03/2023 History of colon polyps (ICD-10 - [...] also obtain a clearance note from his restoration officer, Dr. Orosco. Mark was comfortable with this plan. Thank you again for allowing me to participate in Mark's care. I shall continue to keep you advised of his progress. 10/10/2023 Family history of colon cancer (ICD-10 [...] also obtain a clearance note from his restoration officer, Dr. Orosco. Mark was comfortable with this plan. Thank you again for allowing me to participate in Mark's care. I shall continue to keep you advised of his progress. 10/10/2023 Diverticulosis of large intestine without perforation or abscess without bleeding (ICD-10 - K57.30) 10/10/2023 Other hemorrhoids (ICD-10 - K64.8) Plan Of Treatment Future Test Test Name Order Date COLONOSCOPY 07/11/2016 COLONOSCOPY 12/27/2017 COLONOSCOPY 07/03/2023 Insurance Providers Payer Name Payer Address Payer Phone Subscriber Number Group Number Insured Name Patient Relationship to Insured Coverage Start Date Coverage End Date [facility] [address] [place] [address] [id number] MARK CRAWFORD Self - patient is the insured Medical (General) History Medical History History ICD Code Colonoscopy age 51--he reports that some polyps were removed--in [place] Denies [place],DM,CVA,Lung disease,renal dise ase Hyperlipidemia CAD--4V CABG in 08/2016 PVD Colonoscopy 03/2018 with hyperplastic sampson typs He thinks he has atrial fibrillation. He is followed by Dr. Orosco. Surgical History Surgery Date(Month/Year) Vocal cords 4V CABG 09/20/2016 Vascular left leg 2020 Right carotid endarterectomy 2018
== END 2024-05-28 10:47 | disposition home or self-care (01) ==
LOC: HO.HMGCX 10:46
PROVIDERS: PCP Nurse Practitioner Family; Visit Provider Nurse Practitioner Family
DX: D72.829 Elevated white blood cell count, unspecified (principal)
CPT/HCPCS: 71046

== ENCOUNTER → 2024-05-28 11:15 | Outpatient (BNV) | payer MEDICARE, SELFPAY | PROVIDERS: PCP Nurse Practitioner Family; Visit Provider Radiology Diagnostic Radiology | DX: D72.829 Elevated white blood cell count, unspecified (principal) | CPT/HCPCS: 71046 ==

== ENCOUNTER 2024-06-02 09:24 | Outpatient (AMB) | payer MEDICARE, SELFPAY ==
[2024-06-02 09:31] VITALS: BP 120/76; PULSE 72; BMI 34.0
--- NOTE | 2024-06-02 09:31 | MHC.OFFVIS ---
Vital Signs 06/02/24 09:31 Height 5 ft 10.5 in Weight 240 lb 4.862 oz BMI 34.0 BP 120/76 Blood Pressure Location Lt brachial Position Sitting Pulse 72 Intake Visit Reasons: 1 yr f/up after testing Intake Note: 1 year follow-up with ekg feeling good Foreclosure Paralegal Required: No Allergies No Known Allergies Allergy (Verified 05/27/24 11:15) Medication List - Last Reconciled 06/02/24 by Huang Orosco MD aspirin 81 mg PO DAILY atorvastatin 80 mg PO DAILY ezetimibe 10 mg PO DAILY 90 days isosorbide mononitrate ER 30 mg PO DAILY L.acidophil-L.plantar-Bifido 7 25 billion cell (up4 Probiotics Adult 50 Plus) caps PO lisinopril 2.5 mg PO DAILY metoprolol succinate ER 50 mg PO DAILY multivitamin (Daily Multi-Vitamin tablet) 1 tab PO DAILY rivaroxaban (Xarelto) 2.5 mg PO BID vitamin B complex 1 tab PO DAILY HPI Comments Details: Mark comes for follow-up. Echocardiogram last year showed moderate LV systolic dysfunction which is worsened compared to before. He was no new symptoms of worsening shortness of breath, orthopnea, PND, worsening leg edema. He said he does get claudication walking about half a mi to 3/4 of a mi and then has to stop. Symptoms get better and then he keeps walking. He is currently up to 2 miles of walking. He follows with vascular surgery on a regular basis. Denies any anginal symptoms. Takes all his medications. No bleeding issues or neurologic events. No lightheadedness, syncope. No prolonged palpitation irregular heartbeat. [facility] Medical History Fatty liver CAD (coronary artery disease) Ischemic cardiomyopathy Bilateral carotid artery stenosis PVD (peripheral vascular disease) Dyslipidemia History of colon polyps Nicotine dependence, cigarettes, uncomplicated Leukocytosis Surgical History History of colonoscopy (~03/2018) History of right-sided carotid endarterectomy (~10/2018) History of atherectomy (~09/2020) History of coronary artery bypass graft (~08/2016) Family History Father Stroke CVD (cardiovascular disease) Substance use disorder Mother CVD (cardiovascular disease) Substance use disorder Brother No problems noted. Sister Substance use disorder Social History (Updated 05/27/24 @ 11:18 by Dotty Posada [facility]) Housing: House Alcohol intake: current Alcohol intake frequency: a few times a week Alcohol type: beer Patient Tobacco Use Status: Current everyday Tobacco user Cigarettes Per Day: 10 Years Smoked: (current smoker - onset 21yo, 1-1.5ppd x 45yrs, 50pyh) e-Cigarette/Vaping Use: Never Used Second Hand Smoke Exposure: No service: Yes Current occupational status: employed and retired Current occupational exposures/hazards: Yes Cognitive needs: No Hearing needs: No Vision needs: No Review of Systems Const Denies chills, Denies fatigue, Denies fever(s), Denies frequent falls, Denies weakness, Denies weight gain and Denies weight loss ENT Denies dizziness Card Denies chest pain, Denies leg edema, Denies lightheadedness, Denies palpitations, Denies dyspnea, Denies dyspnea on exertion, Denies orthopnea and Denies other (loss of consciousness) Resp Denies cough, Denies dyspnea and Denies dyspnea on exertion GI Denies hematochezia and Denies change in stool character Musc Denies abnormal gait, Denies muscle weakness, Denies numbness, Denies radiating pain into limb and Denies tingling Neuro Denies abnormal gait, Denies dizziness, Denies frequent falls, Denies numbness, Denies tingling and Denies weakness Endo Denies fatigue and Denies palpitations Physical Exam Vital Signs: Last Vital Signs Pulse 72 06/02/24 09:31 BP 120/76 06/02/24 09:31 BMI result Body Mass Index 34.0 Const General: cooperative, comfortable, no acute distress, alert and awake Nutritional Appearance: obese Orientation/consciousness: patient oriented x3 Limitations: no limitations Neck Neck: Yes trachea midline and Yes supple Resp Effort & Inspection: normal respiratory effort Auscultation: clear to auscultation bilaterally and diminished lung sounds Cardio Jugular venous distension: no JVD Palpation: normal PMI Rate: regular rate Rhythm: regular rhythm Heart sounds: S1 normal heart sound present, S2 normal heart sound present, Murmur heart sound present systolic early and Other heart sounds present (S4 present) Peripheral pulses: Peripheral pulses 2+ throughout Skin General skin exam: no rashes or lesions noted Neuro General: patient oriented x3 and no focal motor deficits Extrem General: Yes no clubbing, cyanosis or edema Psych Appearance: grossly normal Office Procedures EKG Details: EKG shows normal sinus rhythm with right bundle-branch block with inferior infarct 23653-Ogvvxncqxdlhywrha, Complete Assessment & Plan Assessment & Plan (1) CAD (coronary artery disease): Code(s): I25.10 - Atherosclerotic heart disease of comanche coronary artery without angina pectoris Category: Medical Plan: CAD with remote coronary artery bypass grafting with patent grafts with inferior infarct on EKG. Patient has having no symptoms of angina. He has diffuse vascular disease including bilateral peripheral vascular disease as well as bilateral carotid disease. Continue aggressive medical therapy. Currently on low-dose Xarelto therapy due to diffuse vascular disease also on aspirin therapy which should continue. Continue high-intensity statin therapy with ezetimibe therapy with target goal LDL closer to 55 mg/dL. Smoking cessation was significantly help him. He is trying currently to pursue smoking cessation with his own method. He said he last me to request Chantix when he is ready. Continue aggressive blood pressure control. Encouraged to continue maintain activity level as tolerated. Advised to call me with any new symptoms. (2) Ischemic cardiomyopathy: Code(s): I25.5 - Ischemic cardiomyopathy Category: Medical Plan: Ischemic cardiomyopathy with further worsening LV systolic function without signs or symptoms of congestive heart failure. He is on low-dose lisinopril therapy, will switch him to Entresto therapy. Will have to stop lisinopril for few days prior to switching to Entresto therapy and this was discussed with him. Role of neurohormonal modulation was discussed. Continue metoprolol. This also and neurohormonal modulator. This was discussed with him. Signs and symptoms of heart failure were discussed. Follow-up echocardiogram in 3 months time. Will follow up in the clinic in 3 months time, sooner p.r.n.. Thank you for allowing me to partake in his care Orders: Orders Basic Metabolic Panel 10 Days I25.5 - Ischemic cardiomyopathy CA echo transthoracic complete 3 Months I25.5 - Ischemic cardiomyopathy Medications: New sacubitril-valsartan 24-26 mg (Entresto) start 06/05/2024 1 tab PO BID 60 tabs 0RF Discontinued lisinopril Discontinued Reason: Doctor's Order 2.5 mg PO DAILY 90 tabs 3RF Coding Level of Care Code Est Pt Level 4 (00403) Complex EM visit Add On G2211 Diagnoses CAD (coronary artery disease) I25.10 Ischemic cardiomyopathy I25.5 CPT Codes EKG - CPT: 51155-Oyrqrkxeuxzemmlzo, Complete ([id number])
--- OUTSIDE RECORDS SUMMARY | 2024-06-02 10:09 | XMS_ITS ---
Author Organization [facility] Address [address] [place] [address] Care Team Providers Care Paper Bag Press Operator Name Role Phone HUMPHREY POLLARD Primary Care Provider Arcenio Espinal [phone] Encounters Encounter Location Date Provider Diagnosis [facility] [address] [place] [address] 07/03/2023 Arcenio Gomez Plan Of Treatment No Information Progress Notes * ELEAZAR CRAWFORDDOB:[birth year] (68 yo M)Acc No.[id number]:07/03/2023 Patient:?ELEAZAR CRAWFORD :1955???Age:68 Y???Sex:Male Address:[address] [address], [place], [address] * true * Date:? Generated for Domoniquei vikki/Osvaldo/eTransmitting on:?06/02/2024 10:09 AM EDT
--- OUTSIDE RECORDS SUMMARY | 2024-06-02 10:09 | XMS_ITS ---
Author Organization [facility] Address [address] [place] [address] Care Team Providers Care Organizational Psychologist Name Role Phone HUMPHREY POLLARD Primary Care Provider Arcenio Espinal Unavailable [phone] REASON FOR VISIT screening colon Problems Problem Type SNOMED Code ICD Code Onset Dates Problem Status W/U Status Risk Notes Problem Diverticular disease of colon (279091942) Diverticulosis of large intestine without perforation or abscess without bleeding (K57.30) Active confirmed Encounters Encounter Location Date Provider Diagnosis [facility] [address] [place], [place] [id number] 10/10/2023 Arcenio Gomez Colon cancer scree jaylen [...] * ELEAZAR CRAWFORDDOB:[birth year] (69 yo M)Acc No.[id number]:10/10/2023 COLON WITH MAC Patient:?ELEAZAR CRAWFORD Provider:?Arcenio Gomez MD :1955???Age:68 Y???Sex:Male Johnnie e:10/10/2023 Address:[facility] [address], [facility], [id number] Pcp:HUMPHREY POLLARD Subjective: * Chief Complaints: * ???1. Screening colon. * Medical History:? Objective: * Vitals:? Assessment: * Assessment: 1.?Colon cancer screening - Z12.11 (Primary)???2.?Colon polyps - K63.5???3.?Family history of colon cancer - Z80.0???4.?Diverticulosis of large intestine without perforation or abscess without bleeding - K57.30???5. Other hemorrhoids - K64.8??? Plan: * Treatment: * Procedure Codes:?44335 LESIO N REMOVAL COLONOSCOPY, Modifiers: PT , [...] Gomez MD Date:? 024 Generated for Juliet florez/Osvaldo/Asafsmitting on:?06/02/2024 10:09 AM EDT
--- OUTSIDE RECORDS SUMMARY | 2024-06-02 10:09 | XMS_ITS ---
Author Organization [facility] Address [address] [place] [address] Care Team Providers Care Cath Lab Radiological Technologist Name Role Phone HUMPHREY POLLARD Primary Care Provider Arcenio Espinal Unavailable [phone] Allergies No Known Allergies REASON FOR VISIT [...] Notes Problem History of polyp of colon (459385969) History of colon polyps (Z86.010) Active confirmed Vital Signs Blood pressure systolic 00 mm Hg 07/03/19 24 Blood pressure diastolic 00 mm Hg 024 Height 70.5 in 07/03/2023 Weight 236 lbs 07/03/2023 BMI 33.38 kg/m2 07/03/2023 Encounters Encounter Location Date Provider Diagnosis [facility] [address] [place] [address] 07/03/2023 Arcenio Gomez History of colon sampson [...] also obtain a clearance note from his brimmer blocker, Dr. Orosco. Mark was comfortable with this [...] also obtain a clearance note from his brimmer blocker, Dr. Orosco. Mark was comfortable with this [...] also obtain a clearance note from his brimmer blocker, Dr. Orosco. Mark was comfortable with this [...] * MARK CRAWFORDDOB:[birth year] (68 yo M)Acc No.[id number]:07/03/2023 Progress Notes Patient:?MARK CRAWFORD Provider:?Arcenio Gomez MD :1955???Age:68 Y???Sex:Male Johnnie e:07/03/2023 Address:[facility] [address], [facility] Pcp:HUMPHREY POLLARD Subjective: * Chief Complaints: * [...] have a colonoscopy prior to that in [place] with removal of polyps. His family history [...] Screen?Points: 6, Interpretation: Positive.?Miscellaneous:?Marital status: Single. Occupation: [employer] retired. ???Smoker; 6 beers once a week [...] also obtain a clearance note from his brimmer blocker, Dr. Orosco. Mark was comfortable with this [...] COLONOSCOPY (Ordered for 07/03/2023)* Scheduled colon at [facility] on 10-10-2023 at 10:00 a.m. * Procedure Codes:?3017F COLOR ECTAL CA SCREEN DOC [id number] Pt scrn tbco and id as [id number] BP SCR NOT PRFRM REC REASON NOS * Follow Up:?prn * * Sign off status: Completed true * Provider:?Arcenio Gomez MD Date:? 024 Generated for Juliet florez/Osvaldo/eTransmitting on:?06/02/2024 10:09 AM EDT History and Physical Notes * HPI (History [...] have a colonoscopy prior to that in [place] with removal of polyps. His family history [...]
--- OUTSIDE RECORDS SUMMARY | 2024-06-02 10:10 | XMS_ITS | Patient Health Record ---
Author Organization [facility] Address [address] [place] [address] Care Team Providers Care Screener Perfumer Name Role Phone HUMPHREY KELLEY Primary Care Provider Arcenio Espinal [phone] Allergies No Known Allergies Results Component Value Reference Range Notes Pathology Reviewed date:10/22/2023 08:05:14 AM Interpretation: Performing Lab:[facility], [address] [place] [id number] Notes/Report: Name: Henrry Crawford Age/Sex: 68/M : 1955 Unit#: [id number] Attend Dr: Arcenio Gomez MD Re10/10/23 Status : [facility] Location: [facility] Disch: SPEC : [id number] RECD : 10/10/231046 STATUS: PACHECO WORKMAN NUM: [id number] FREEDOM: 10/10/[address] [facility] [address]: Arcenio Gomez MD ENTERED: 10/10/23-01 30 SP TYPE: Surgical OTHR DR: Humphrey Kelley [facility] ORDERED: HE Stain/3, Gross Micro L4 Diagnosis [...] labeled A. CEDS Copies To: Humphrey Kelley [address] [id number] Arcenio Gomez MD [address] [place], [place] [id number] Signed (si gnature on file) Reina Cagle [...] Problem Status W/U Status Risk Notes Problem 594833210 Encounter for screening for malignant neoplasm of colon (Z12.11) Active confirmed Problem Diverticular disease of colon (299065065) Diverticulosis of large intestine without perforation or abscess without bleeding (K57.30) Active confirmed Problem Screening for malignant neoplasm of rectum (773372634) Encounter for screening for malignant neoplasm of rectum (Z12.12) Active confirmed Problem 026386836 Preprocedural examination (Z01.818) Active confirmed Problem History of polyp of colon (219991070) History of colon polyps (Z86.010) Active confirmed Problem 403604128165294 Pre-procedural examination (Z01.818) Active confirmed Vital Signs Blood pressure diastolic 00 mm Hg 07/03/2023 Height 70.5 in 07/03/2023 Blood pressure systolic 00 mm Hg 07/03/2023 Weight 236 lbs 07/03/2023 BMI 33.38 kg/m2 07/03/2023 Encounters Encounter Location Date Provider Diagnosis [facility] Out[facility] [address] [place], [place] [id number] 10/10/2023 Arcenio Gomez Colon cancer screeni ng Z12.11 ; Colon polyps K63.5 ; Family history of colon cancer Z80.0 ; Diverticulosis of large intestine without perforation or abscess without bleeding K57.30 and Other hemorrhoids K64.8 [facility] [address] [place] [address] 07/03/2023 Arcenio Gomez History of colon sampson yps Z86.010 ; Preprocedural examination Z01.818 and Encounter for screening for malignant neoplasm of colon Z12.11 [facility] [address] [place] [address] 07/03/2023 Arcenio Gomez Assessments Encounter Date Diagnosis [...] also obtain a clearance note from his mechanical operator, Dr. Orosco. Mark was comfortable with this [...] also obtain a clearance note from his mechanical operator, Dr. Orosco. Mark was comfortable with this [...] also obtain a clearance note from his mechanical operator, Dr. Orosco. Mark was comfortable with this [...] Insured Coverage Start Date Coverage End Date [facility] [address] [place] [address] [id number] MARK CRAWFORD Self - patient is the insured Medical (General) History Medical History History ICD Code Colonoscopy age 51--he reports that some polyps were removed--in [place],DM,CVA,Lung disease,renal dise ase Hyperlipidemia CAD--4V CABG in 08/2016 PVD Colonoscopy 03/2018 with hyperplastic sampson typs He thinks he has atrial fibrillation. He is followed by Dr. Orosco. Surgical History Surgery Date(Month/Year) Vocal cords 4V CABG 09/20/2016 Vascular left leg 2020 Right carotid endarterectomy 2018
== END 2024-06-02 10:19 | disposition home or self-care (01) ==
PROVIDERS: PCP Nurse Practitioner Family; Visit Provider Internal Medicine Cardiovascular Disease
DX: I25.10 Atherosclerotic heart disease of native coronary artery without angina pectoris (principal); I25.5 Ischemic cardiomyopathy
CPT/HCPCS: 93010; 99214; G2211

== ENCOUNTER → 2024-06-02 09:24 | Outpatient (BNVA) | payer MEDICARE, SELFPAY | PROVIDERS: PCP Nurse Practitioner Family; Visit Provider Internal Medicine Cardiovascular Disease | DX: I25.10 Atherosclerotic heart disease of native coronary artery without angina pectoris (principal); I25.5 Ischemic cardiomyopathy; R94.31 Abnormal electrocardiogram [ECG] [EKG]; I45.10 Unspecified right bundle-branch block | CPT/HCPCS: 93005; 99212 ==

== ENCOUNTER 2024-06-09 08:02 | Outpatient (REF) | payer MEDICARE, SELFPAY ==
--- OUTSIDE RECORDS SUMMARY | 2024-06-09 08:05 | XMS_ITS ---
Author Organization [facility] Address [address] [place] [address] Care Team Providers Care Talent Analyst Name Role Phone HUMPHREY POLLARD Primary Care Provider Arcenio Espinal [phone] Encounters Encounter Location Date Provider Diagnosis [facility] [address] [place] [address] 07/03/2023 Arcenio Gomez Plan Of Treatment No Information Progress Notes * ELEAZAR CRAWFORDDOB:[birth year] (68 yo M)Acc No.[id number]:07/03/2023 Patient:?ELEAZAR CRAWFORD :1955???Age:68 Y???Sex:Male Address:[address] [address], [place], [address] * true * Date:? Generated for Domoniquei vikki/Osvaldo/eTransmitting on:?06/09/2024 08:05 AM EDT
--- OUTSIDE RECORDS SUMMARY | 2024-06-09 08:05 | XMS_ITS ---
Author Organization [facility] Address [address] [place] [address] Care Team Providers Care Cone Machine Operator Name Role Phone HUMPHREY POLLARD Primary Care Provider Arcenio Espinal Unavailable [phone] Allergies No Known Allergies REASON FOR VISIT [...] Notes Problem History of polyp of colon (377132354) History of colon polyps (Z86.010) Active confirmed Vital Signs Blood pressure systolic 00 mm Hg 07/03/19 24 Blood pressure diastolic 00 mm Hg 024 Height 70.5 in 07/03/2023 Weight 236 lbs 07/03/2023 BMI 33.38 kg/m2 07/03/2023 Encounters Encounter Location Date Provider Diagnosis [facility] [address] [place] [address] 07/03/2023 Arcenio Gomez History of colon sampson [...] also obtain a clearance note from his volunteer assistant, Dr. Orosco. Mark was comfortable with this [...] also obtain a clearance note from his volunteer assistant, Dr. Orosco. Mark was comfortable with this [...] also obtain a clearance note from his volunteer assistant, Dr. Orosco. Mark was comfortable with this [...] * MARK CRAWFORDDOB:[birth year] (68 yo M)Acc No.[id number]:07/03/2023 Progress Notes Patient:?MARK CRAWFORD Provider:?Arcenio Gomez MD :1955???Age:68 Y???Sex:Male Johnnie e:07/03/2023 Address:[facility] [address], [facility] Pcp:HUMPHREY POLLARD Subjective: * Chief Complaints: [...] have a colonoscopy prior to that in [place] with removal of polyps. His family history [...] Screen?Points: 6, Interpretation: Positive.?Miscellaneous:?Marital status: Single. Occupation: [employer] retired. ???Smoker; 6 beers once a week [...] also obtain a clearance note from his volunteer assistant, Dr. Orosco. Mark was comfortable with this [...] COLONOSCOPY (Ordered for 07/03/2023)* Scheduled [place] [facility] [place]10-2023 at 10:00 a.m. * Procedure Codes:?3017F COLOR ECTAL CA SCREEN DOC [id number] Pt scrn tbco and id as [id number] BP SCR NOT PRFRM REC REASON NOS * Follow Up:?prn * * Sign off status: Completed true * Provider:?Arcenio Gomez MD Date:? 024 Generated for Juliet florez/Osvaldo/eTransmitting on:?06/09/2024 08:05 AM EDT History and Physical Notes * [...] have a colonoscopy prior to that in [place] with removal of polyps. His family history [...]
--- OUTSIDE RECORDS SUMMARY | 2024-06-09 08:05 | XMS_ITS | Patient Health Record ---
Author Organization [facility] Address [address] [place] [address] Care Team Providers Care Assurance Associate Name Role Phone HUMPHREY KELLEY Primary Care Provider Arcenio Espinal [phone] Allergies No Known Allergies Results Component Value Reference Range Notes Pathology Reviewed date:10/22/2023 08:05:14 AM Interpretation: Performing Lab:[facility], [address] [place] [id number] Notes/Report: Name: Henrry Crawford Age/Sex: 68/M : 1955 Unit#: [id number] Attend Dr: Arcenio Gomez MD Re10/10/23 Status : [facility] Location: [facility] Disch: SPEC : [id number] RECD : 10/10/231046 STATUS: PACHECO WORKMAN NUM: [id number] FREEDOM: 10/10/[address] [facility] [address]: Arcenio Gomez MD ENTERED: 10/10/23-01 30 SP TYPE: Surgical OTHR DR: Humphrey Kelley [facility] ORDERED: HE Stain/3, Gross Micro L4 [...] labeled A. CEDS Copies To: Humphrey Kelley [address] [id number] Arcenio Gomez MD [address] [place], [place] [id number] Signed (si gnature on file) Reina Cagle [...] Problem Status W/U Status Risk Notes Problem 163486062 Encounter for screening for malignant neoplasm of colon (Z12.11) Active confirmed Problem Diverticular disease of colon (762966109) Diverticulosis of large intestine without perforation or abscess without bleeding (K57.30) Active confirmed Problem Screening for malignant neoplasm of rectum (859600473) Encounter for screening for malignant neoplasm of rectum (Z12.12) Active confirmed Problem 731330672 Preprocedural examination (Z01.818) Active confirmed Problem History of polyp of colon (851779422) History of colon polyps (Z86.010) Active confirmed Problem 311807353264995 Pre-procedural examination (Z01.818) Active confirmed Vital Signs Blood pressure diastolic 00 mm Hg 07/03/2023 Height 70.5 in 07/03/2023 Blood pressure systolic 00 mm Hg 07/03/2023 Weight 236 lbs 07/03/2023 BMI 33.38 kg/m2 07/03/2023 Encounters Encounter Location Date Provider Diagnosis [facility] [place] [address] [place], [place] [id number] 10/10/2023 Arcenio Gomez Colon cancer screeni ng Z12.11 ; Colon polyps K63.5 ; Family history of colon cancer Z80.0 ; Diverticulosis of large intestine without perforation or abscess without bleeding K57.30 and Other hemorrhoids K64.8 [facility] [address] [place] [address] 07/03/2023 Arcenio Gomez History of colon sampson yps Z86.010 ; Preprocedural examination Z01.818 and Encounter for screening for malignant neoplasm of colon Z12.11 [facility] [address] [place] [address] 07/03/2023 Arcenio Gomez Assessments Encounter Date Diagnosis [...] also obtain a clearance note from his texturing machine fixer, Dr. Orosco. Mark was comfortable with this [...] also obtain a clearance note from his texturing machine fixer, Dr. Orosco. Mark was comfortable with this [...] also obtain a clearance note from his texturing machine fixer, Dr. Orosco. Mark was comfortable with this [...] Insured Coverage Start Date Coverage End Date [facility] [address] [place] [address] [id number] MARK CRAWFORD Self - patient is the insured Medical (General) History Medical History History ICD Code Colonoscopy age 51--he reports that some polyps were removed--in [place] Den[place],DM,CVA,Lung disease,renal dise ase Hyperlipidemia CAD--4V CABG in 08/2016 PVD Colonoscopy 03/2018 with hyperplastic sampson typs He thinks he has atrial fibrillation. He is followed by Dr. Orosco. Surgical History Surgery Date(Month/Year) Vocal cords 4V CABG 09/20/2016 Vascular left leg 2020 Right carotid endarterectomy 2018
--- OUTSIDE RECORDS SUMMARY | 2024-06-09 08:05 | XMS_ITS ---
Author Organization [facility] Address [address] [place] [address] Care Team Providers Care Extrusion Die Repair Manager Name Role Phone HUMPHREY POLLARD Primary Care Provider Arcenio Espinal Unavailable [phone] REASON FOR VISIT screening colon Problems Problem Type SNOMED Code ICD Code Onset Dates Problem Status W/U Status Risk Notes Problem Diverticular disease of colon (361647329) Diverticulosis of large intestine without perforation or abscess without bleeding (K57.30) Active confirmed Encounters Encounter Location Date Provider Diagnosis [facility] [place] Outpatient [address] [place], [place] [phone] 10/10/2023 Arcenio Gomez Colon cancer scree jaylen [...] * ELEAZAR CRAWFORDDOB:[birth year] (69 yo M)Acc No.[id number]:10/10/2023 COLON WITH MAC Patient:?ELEAZAR CRAWFORD Provider:?Arcenio Gomez MD :1955???Age:68 Y???Sex:Male Johnnie e:10/10/2023 Address:[facility] [address], [facility], [id number] Pcp:HUMPHREY POLLARD Subjective: * Chief Complaints: * ???1. Screening colon. * Medical History:? Objective: * Vitals:? Assessment: * Assessment: 1.?Colon cancer screening - Z12.11 (Primary)???2.?Colon polyps - K63.5???3.?Family history of colon cancer - Z80.0???4.?Diverticulosis of large intestine without perforation or abscess without bleeding - K57.30???5. Other hemorrhoids - K64.8??? Plan: * Treatment: * Procedure Codes:?60712 LESIO N REMOVAL COLONOSCOPY, Modifiers: PT , [...] MD Date:? 024 Generated for Juliet florez/Osvaldo/Asafsmitting on:?06/09/2024 08:05 AM EDT
[2024-06-09 10:56] LABS: Anion Gap 13 (12-20); Blood Urea Nitrogen 10 mg/dL (9-16); Calcium 9.1 mg/dL (8.4-10.2); Carbon Dioxide 24 mmol/L (22-29); Chloride 108 mmol/L (96-108); Estimated Glomerular Filt Rate > 60; Glucose Random 121 mg/dL (60-115); Potassium 4.1 mmol/L (3.3-5.1); Sodium 141 mmol/L (135-145)
== END 2024-06-09 08:03 | disposition home or self-care (01) ==
LOC: HO.HMGCLDS 08:02
PROVIDERS: PCP Nurse Practitioner Family; Visit Provider Internal Medicine Cardiovascular Disease
DX: I25.5 Ischemic cardiomyopathy (principal)
CPT/HCPCS: 36415; 80048

== ENCOUNTER 2024-06-16 08:42 | Outpatient (REF) | payer MEDICARE, SELFPAY ==
--- NOTE | ~2024-06-16 | CT_ITS ---
EXAMINATION: CT LUNG SCREENING HISTORY: Smoking history TECHNIQUE: Low dose axial images were obtained from the sternal notch to upper abdomen without IV contrast per standard departmental protocol. Sagittal and coronal reformatted images were also obtained and reviewed. One or more of the following techniques was used for dose reduction: Automated exposure control, adjustment of the mA and/or kV according to patient size, use of iterative reconstruction technique. DLP: 83 mGy-cm COMPARISON: Comparison is made with the prior examination dated 06/14/2023. FINDINGS: Lung nodules: Again seen is a 5 mm subpleural nodule along the right cardiac border (series 4, image 85). An 8 mm nodule in the right lower lobe (series 4, image 97) is also stable. There are 2 adjacent 3-4 mm nodules at the right lung base (series 4, image 116). A 3 mm nodule in the left upper lobe (series 4, image 49) is stable. No new pulmonary nodules are identified. Emphysema: none Coronary Calcification: severe, status post CABG Aortic Arch Calcification: moderate Potentially Significant Incidentals : none Additional Chest Findings: There is no pleural or pericardial effusion. No mediastinal or axillary lymphadenopathy is identified. Visualized upper abdomen: The visualized portions of the liver, spleen, and adrenals have an unremarkable unenhanced appearance. CT/CT lung screening IMPRESSION: No suspicious pulmonary nodules are identified. LUNG-RADS ASSESSMENT: Lung-RADS 2: Benign MANAGEMENT: Continue annual screening with LDCT in 12 months Category S: N/A Electronically signed by: Arcenio Mullen MD 06/16/2024 12:22 PM EDT
== END 2024-06-16 08:43 | disposition home or self-care (01) ==
LOC: HO.CT 08:42
PROVIDERS: PCP Nurse Practitioner Family; Visit Provider Physician Assistant Medical
DX: Z12.2 Encounter for screening for malignant neoplasm of respiratory organs (principal); F17.210 Nicotine dependence, cigarettes, uncomplicated
CPT/HCPCS: 71271

== ENCOUNTER → 2024-06-16 08:44 | Outpatient (BNV) | payer MEDICARE, SELFPAY | PROVIDERS: PCP Nurse Practitioner Family; Visit Provider Radiology Diagnostic Radiology | DX: F17.210 Nicotine dependence, cigarettes, uncomplicated (principal) | CPT/HCPCS: 71271 ==

== ENCOUNTER 2024-08-27 09:33 | Outpatient (AMB) | payer MEDICARE, SELFPAY ==
[2024-08-27 09:35] VITALS: BP 124/72; PULSE 79; RESP 16; TEMP 36.6; O2SAT 97; BMI 33.8
--- NOTE | 2024-08-27 09:36 | A.OFFPC_ITS ---
Vital Signs 08/27/24 09:35 Height 5 ft 10.5 in Weight 239 lb BMI 33.8 BP 124/72 Blood Pressure Location Rt brachial Position Sitting Respiration 16 Pulse 79 Pulse Source Pulse Oximeter Temp 97.8 F Temp Source Oral Pulse Oximetry (%) 97 Intake Visit Reasons: 6 months f/up Allergies No Known Allergies Allergy (Verified 08/27/24 09:36) Tobacco use date assessed: 08/27/24 Fall risk assessment: No Falls in past year Last assessed Fall Risk: 08/27/24 Dental Screening Dental Screen Date: 08/27/24 Did you have a dental visit in the last 12 months?: Yes Did you have a dental problem in the last 6 months where you did not have access to dental care?: No Was dental information given to patient?: Patient has dentist HPI 6 months f/up HPI Details Chief Complaint The patient presents for a follow-up visit to manage coronary artery disease and assess associated symptoms. History of Present Illness The patient is a 69-year-old male presenting for a follow-up concerning his coronary artery disease. He has been receiving ongoing care for this condition, including regular checkups with a port captain and technical services consultant. The patient's hypertension remains stable currently. He continues to smoke, a factor significantly affecting his respiratory health. Despite being a long-term smoker, he is compliant with annual CAT scan screenings. The patient does not experience chest pain. However, he reports transient shortness of breath with vigorous activities that resolves with rest. He also notes claudication of the bilateral lower extremities, and his vascular specialist is monitoring this with regular assessments and necessary testing. Social History - Continues to smoke, indicating persist ent tobacco use. - Undergoes annual CAT scans as part of health maintenance. Health Maintenance - Annual CAT scans have been advised and are performed. - Regular follow-up with a port captain, technical services consultant, and vascular specialist. Review of Systems - Cardiovascular: Denies chest pain but reports shortness of breath on exertion. - Respiratory: Denies other respiratory symptoms. - Vascular: Reports claudication in bila teral lower extremities. Physical Exam General: Cooperative, healthy appearing, comfortable, no acute distress and well developed Orientation: Patient oriented x3 Limitations: No limitations Head: Normal to inspection Ears: Hearing grossly normal bilaterally Nose: Normal external nose present Face and sinus: Normal facial exam Eyes: Appearance normal, both eyes and all related structures Neck: Normal visual inspection and Yes full ROM Respiratory: Normal respiratory effort and able to speak in complete sentences. Clear to auscultation bilaterally Cardiovascular: Regular rate and rhythm. Normal S1 and S2. faint Systolic murmur noted GI: Normal to inspection. Soft to palpation and nontender Skin: No rashes or lesions noted Neuro: Patient oriented x3 Extremities: Claudication noted in bilateral extremities Results Plan The follow-up visit focused on managing the patient's coronary artery disease and related health issues. Recommendations included continuing the annual CAT scans for lung health monitoring and maintaining routine follow-ups with cardiol ogy, pulmonology, and plastic battery assembler. The patient's hypertension remains stable; thus, existing management continues without adjustments. Continued cessation support for tobacco use was advised, and regular monitoring ensures the management remains effective. Discussion Notes I discussed with the patient the importance of adhering to his follow-up appointments with his specialty providers to effectively manage his coronary artery disease, hypertension, and vascular health. We reviewed the significance of maintaining annual CAT scan screening given his history of tobacco use. The potential risks and benefits of ongoing management strategies and lifestyle modifications were reviewed, emphasizing the role of cigarette cessation in improving both cardiovascular and pulmonary outcomes. I have provided anticipatory guidance regarding monitoring his symptoms, especially any progression of respiratory or vascular symptoms, and stressed the importance of immediate medical attention should his condition change. Patient Instructions - Continue with annual CAT scans. - Maintain scheduled appointments with y our port captain, technical services consultant, and vascular specialist. - Monitor for any changes in symptoms, s uch as increased shortness of breath or claudication. - Seek immediate care if you experience chest pain or worsening of any symptoms. - Consider cessation support for smoking . [facility] Medical History (Reviewed 08/27/24 @ 10:24 by JOSE RamírezENCOM[facility]) Fatty liver CAD (coronary artery disease) Ischemic cardiomyopathy Bilateral carotid artery stenosis PVD (peripheral vascular disease) Dyslipidemia History of colon polyps Nicotine dependence, cigarettes, uncomplicated Leukocytosis Surgical History History of colonoscopy (~03/2018) History of right-sided carotid endarterectomy (~10/2018) History of atherectomy (~09/2020) History of coronary artery bypass graft (~08/2016) Family History (Reviewed 08/27/24 @ 10:24 by JOSE RamírezENCOM[facility]) Father Stroke CVD (cardiovascular disease) Substance use disorder Mother CVD (cardiovascular disease) Substance use disorder Brother No problems noted. Sister Substance use disorder Social History (Reviewed 08/27/24 @ 10:24 by JOSE RamírezENCOM[facility]) Housing: House Alcohol intake: current Alcohol intake frequency: a few times a week Alcohol type: beer Patient Tobacco Use Status: Current everyday Tobacco user Cigarettes Per Day: 10 Years Smoked: (current smoker - onset 21yo, 1-1.5ppd x 45yrs, 50pyh) Packs per year/per ci.00 e-Cigarette/Vaping Use: Never Used Second Hand Smoke Exposure: No service: Yes Current occupational status: employed and retired Current occupational exposures/hazards: Yes Cognitive needs: No Hearing needs: No Vision needs: No Questionnaire PHQ-9 Over the last 2 weeks, how often have you been bothered by any of the following problems? 1. Little interest or pleasure in doing things: not at all 2. Feeling down, depressed, or hopeless: not at all 3. Trouble falling or staying asleep, or sleeping too much: not at all 4. Feeling tired or having little energy: not at all 5. Poor appetite or overeating: not at all 6. Feeling bad about yourself - or that you are a failure or have let yourself or your family down: not at all 7. Trouble concentrating on things, such as reading the newspaper or watching television: not at all 8. Moving or speaking so slowly that other people could have noticed. Or the opposite - being so fidgety or restless that you have been moving around a lot more than usual: not at all 9. Thoughts that you would be better off or of hurting yourself in some way: not at all Total score: 0 Depression Screening Interpretation: Negative Depression Screening Done: Yes 65646 - PHQ-9 Billing: Yes Source: Developed by Drs. Arcenio Hobbs, Hawa Hancock, Taran Sauceda and colleagues, with an educational elsy from [employer]. Thrive Questionnaire Date Thrive assessed: 08/27/24 I am a: Patient What is your living situation today?: I have a steady place to live Within the past 12 months, did the food you bought not last and you didn't have the money to get more?: Never true Within the past 12 months, did you worry whether your food would run out before you got money to buy more?: Never true Do you have trouble paying for medicines?: No Do you have trouble getting transportation to medical appointments?: No Do you have trouble paying your heating and electricity bill?: No Do you have trouble taking care of your child, family member or friend?: No Do you have trouble with day-to-day activities such as bathing, preparing meals, shopping, managing finances, etc.?: No Are you currently unemployed and looking for a job?: No Are you interested in more education?: No Please select the resources that you would like help with: None Currently or been in a relationship where the following occur: No concerns reported THRIVE Score: 0 AUDIT C Alcohol Use Questionnaire (AUDIT-C) 1. How often do you have a drink containing alcohol?: 2-3 times a week 2. How many drinks containing alcohol do you have on a typical day when you are drinking?: 5 or 6 3. How often do you have six or more drinks on one occasion?: Less than monthly Total Score: 6 Score Reviewed/Action Taken: Yes ISHAN-7 AMB Questionnaire ISHAN-7 Date ISHAN - 7 assessed: 08/27/24 Feeling nervous, anxious, or on edge: 0 = Not at all Not being able to stop or control worryin = Not at all Worrying too much about different things: 0 = Not at all Trouble relaxin = Not at all Being so restless that it is hard to sit still: 0 = Not at all Becoming easily annoyed or irritable: 0 = Not at all Feeling afraid as if something awful might happen: 0 = Not at all Total ISHAN-7 score (0-4 normal; 5-9 mild; 10-14 moderate; 15-21 severe): 0 Source: Developed by Drs. Arcenio Hobbs, Hawa Hancock, Taran Sauceda and colleagues, with an educational elsy from [employer] ISHAN-7 Assessment Billing ISHAN-7 Assessment Tool: ISHAN-7 Assessment 12991 Physical exam (Primary Care) Vital Signs: Last Vital Signs Temp 97.8 F 08/27/24 09:35 Pulse 79 08/27/24 09:35 Resp 16 08/27/24 09:35 BP 124/72 08/27/24 09:35 Pulse Ox 97 08/27/24 09:35 BMI result Body Mass Index 33.8 Tobacco/Smoking Status: Tobacco use Status Tobacco use date assessed 08/27/24 08/27/24 09:39 Patient Tobacco Use Status Current everyday Tobacco 08/27/24 09:39 e-Cigarette/Vaping Use Never Used 08/27/24 09:39 PHQ-9: PHQ-9 Score PHQ-9: Total score 0 08/27/24 09:39 Depression Screening Interpretation: Negative Thrive Assessment: Date of Thrive Assessment Date Thrive assessed 08/27/24 08/27/24 09:39 Currently or been in a relationship where the following occur: No concerns reported Coding Level of Care Code Est Pt Level 4 (58254) Diagnoses CAD (coronary artery disease) I25.10 Dyslipidemia E78.5 HTN (hypertension) I10 Vitamin D deficiency E55.9 Claudication I73.9 Additional Codes ISHAN-7 Assessment Billing - ISHAN-7 Assessment Tool: ISHAN-7 Assessment 71401 ([id number]) PHQ-9 - 86784 - PHQ-9 Billing: Yes ([id number]) Assessment & Plan Assessment & Plan (1) CAD (coronary artery disease): Code(s): I25.10 - Atherosclerotic heart disease of [place] coronary artery without angina pectoris Category: Medical (2) Dyslipidemia: Code(s): E78.5 - Hyperlipidemia, unspecified Category: Medical (3) HTN (hypertension): Code(s): I10 - Essential (primary) hypertension Category: Medical (4) Vitamin D deficiency: Code(s): E55.9 - Vitamin D deficiency, unspecified Category: Medical (5) Claudication: Code(s): I73.9 - Peripheral vascular disease, unspecified Category: Medical Plan . Orders: Orders Complete Blood Count Auto Diff Today E78.5 - Hyperlipidemia, unspecified, I10 - Essential (primary) hypertension, I25.10 - Atherosclerotic heart disease of [place] coronary artery without angina pectoris Comprehensive Jbphh. Panel Fast Today E78.5 - Hyperlipidemia, unspecified, I10 - Essential (primary) hypertension, I25.10 - Atherosclerotic heart disease of [place] coronary artery without angina pectoris TSH reflex Free T4 Today E78.5 - Hyperlipidemia, unspecified, I10 - Essential (primary) hypertension, I25.10 - Atherosclerotic heart disease of [place] coronary artery without angina pectoris Lipid Panel Today E78.5 - Hyperlipidemia, unspecified, I10 - Essential (primary) hypertension, I25.10 - Atherosclerotic heart disease of [place] coronary artery without angina pectoris Vitamin D 25-OH Total Today E55.9 - Vitamin D deficiency, unspecified, E78.5 - Hyperlipidemia, unspecified, I10 - Essential (primary) hypertension, I25.10 - Atherosclerotic heart disease of [place] coronary artery without angina pectoris UA CC w/rflx Micro + Cult Today E78.5 - Hyperlipidemia, unspecified, I10 - Essential (primary) hypertension, I25.10 - Atherosclerotic heart disease of [place] coronary artery without angina pectoris
--- OUTSIDE RECORDS SUMMARY | 2024-08-27 09:58 | XMS_ITS ---
Author Organization [facility] Address [address] [place] [address] Care Team Providers Care Computer Consultant Name Role Phone HUMPHREY POLLARD Primary Care Provider Arcenio Espinal Unavailable [phone] REASON FOR VISIT screening colon Problems Problem Type SNOMED Code ICD Code Onset Dates Problem Status W/U Status Risk Notes Problem Diverticulosis o f large intestine without perforation or abscess without bleeding (K57.30) Active confirmed Encounters Encounter Location Date Provider Diagnosis [facility] [place] [address] [place] [phone] 10/10/2023 Arcenio Gomez Colon cancer scree jaylen [...] * ELEAZAR CRAWFORDDOB:[birth year] (69 yo M)Acc No.[id number]:10/10/2023 COLON WITH MAC Patient:?ELEAZAR CRAWFORD Provider:?Arcenio Gomez MD :1955???Age:68 Y???Sex:Male Johnnie e:10/10/2023 Address:[facility] [address], [place] [facility] [id number] Pcp:HUMPHREY POLALRD Subjective: * Chief Complaints: * ???1. Screening colon. * Medical History:? Objective: * Vitals:? Assessment: * Assessment: 1.?Colon cancer screening - Z12.11 (Primary)???2.?Colon polyps - K63.5???3.?Family history of colon cancer - Z80.0???4.?Diverticulosis of large intestine without perforation or abscess without bleeding - K57.30???5. Other hemorrhoids - K64.8??? Plan: * Treatment: * Procedure Codes:?25048 LESIO N REMOVAL COLONOSCOPY, Modifiers: PT , [...] MD Date:? 024 Generated for Juliet florez/Osvaldo/Elinitting on:?08/27/2024 09:58 AM EDT
== END 2024-08-27 10:26 | disposition home or self-care (01) ==
LOC: HO.HMCC 09:34
PROVIDERS: PCP Nurse Practitioner Family; Visit Provider Nurse Practitioner Family
DX: I25.10 Atherosclerotic heart disease of native coronary artery without angina pectoris (principal); E78.5 Hyperlipidemia, unspecified; I10 Essential (primary) hypertension; E55.9 Vitamin D deficiency, unspecified; I73.9 Peripheral vascular disease, unspecified; Z23 Encounter for immunization

== ENCOUNTER 2024-08-27 09:33 | Outpatient (REF) | payer MEDICARE, SELFPAY ==
[2024-08-27 13:15] LABS: Appearance Urine Turbid; Color Urine Dark Yellow; Glucose Urine UA Negative (Negative); Leukocyte Esterase Urine Trace (Negative); Nitrite Urine Negative (Negative); PH 5.5 (5.0-9.0); UMIC TRIGGER UACC YES; Urine Blood Negative (Negative); Urine Ketones Trace mg/dL (Negative); Urine Protein Negative (Neg-Trace)
[2024-08-27 13:19] LABS: Bacteria Urine None Seen (None Seen); Hyaline Casts Urine 0-2 /LPF (0-2); RBC Urine 0-2 /HPF (0-2); Squamous Epithelial Cell Urine 0-2 /HPF (0-2); WBC Urine 0-5 /HPF (0-5)
[2024-08-27 13:20] LABS: MANUAL DIFF FLAG NO
[2024-08-27 13:29] LABS: Basophils Absolute Auto 0.1 X10*3/uL (0.0-0.2); Basophils Percent Auto 0.6 % (0-2); Eosinophils Absolute Auto 0.4 X10*3/uL (0.0-0.4); Eosinophils Percent Auto 2.6 % (0-4); Hematocrit 45.3 % (42.0-52.0); Hemoglobin 15.9 g/dl (14.0-18.0); Imm Gran Abs Auto 0.07 X10*3/uL (0.00-0.03); Imm Gran Pct Auto 0.5 % (0.0-0.4); Lymphocytes Absolute Auto 2.5 X10*3/uL (1.2-4.9); Lymphocytes Percent Auto 17.7 % (20-40); Mean Corpuscular HGB Conc 35.1 g/dl (31.0-36.0); Mean Corpuscular Hemoglobin 34.3 pg (27.0-33.0); Mean Corpuscular Volume 97.6 fL (80.0-98.0); Mean Platelet Volume 11.5 fL (9.4-12.4); Monocytes Absolute Auto 0.8 X10*3/uL (0.1-1.2); Monocytes Percent Auto 5.4 % (2-11); Neutrophils Absolute Auto 10.5 x10*3/uL (2.0-8.3); Neutrophils Percent Auto 73.2 % (45-73); Platelet Count 214 X10*3/uL (160-400); Red Blood Count 4.64 X10*6/uL (4.60-5.80); Red Cell Distribution Width 13.6 % (11.0-16.0); White Blood Count 14.3 X10*3/uL (4.8-10.8)
[2024-08-27 15:14] LABS: TSH reflex Free T4 1.78 uIU/mL (0.32-4.0); Vitamin D 25-OH Total 78.4 ng/mL (>30)
[2024-08-27 15:28] LABS: Anion Gap 10 (12-20)
[2024-08-27 15:33] LABS: Alanine Aminotransferase 23 U/L (0-40); Albumin Level 4.3 g/dL (3.5-5.0); Alkaline Phosphatase 88 U/L (39-117); Aspartate Amino Transferase 30 U/L (5-37); Bilirubin Total 0.6 mg/dL (0.0-1.0); Blood Urea Nitrogen 14 mg/dL (9-16); Carbon Dioxide 27 mmol/L (22-29); Chloride 106 mmol/L (96-108); Cholesterol 107 mg/dL (<200); Estimated Glomerular Filt Rate > 60; Glucose Fasting 92 mg/dL (60-99); HDL Cholesterol 38 mg/dL (>40); LDL Cholesterol Calculated 55 mg/dL (<100); Potassium 4.6 mmol/L (3.3-5.1); Sodium 138 mmol/L (135-145); Total Protein 6.8 g/dL (6.5-8.0); Triglycerides 71 mg/dL (<150)
== END 2024-08-27 09:34 | disposition home or self-care (01) ==
LOC: HO.HMGCLDS 09:33
PROVIDERS: PCP Nurse Practitioner Family; Visit Provider Nurse Practitioner Family
DX: I25.10 Atherosclerotic heart disease of native coronary artery without angina pectoris (principal); Z23 Encounter for immunization; E78.5 Hyperlipidemia, unspecified; I10 Essential (primary) hypertension; E55.9 Vitamin D deficiency, unspecified; I73.9 Peripheral vascular disease, unspecified
CPT/HCPCS: 36415; 80053; 80061; 81001; 82306; 84443; 85025; 90471; 90677; 96127; 99212

== ENCOUNTER → 2024-09-02 07:12 | Outpatient (REF) | payer MEDICARE, SELFPAY ==
--- NOTE | ~2024-09-02 | XR_ITS ---
EXAMINATION: XR CHEST 2 VIEWS HISTORY: D72.829 - Elevated white blood cell count, unspecified COMPARISON: Comparison is made with the prior examination dated 05/28/2024. FINDINGS: PA and lateral views of the chest are submitted. The lungs are expanded and clear. There is no pleural effusion, pneumothorax, or pulmonary vascular congestion. The heart is normal in size. The patient is status post median sternotomy and CABG. There is degenerative disc disease of the spine. XR/XR chest 2V IMPRESSION: No acute cardiopulmonary abnormality. Electronically signed by: Arcenio Mullen MD 09/02/2024 07:31 AM EDT
--- OUTSIDE RECORDS SUMMARY | 2024-09-02 07:15 | XMS_ITS ---
Author Organization [facility] Address [address] [place] [address] Care Team Providers Care Django Developer Name Role Phone HUMPHREY POLLARD Primary Care Provider Arcenio Espinal Unavailable [phone] REASON FOR VISIT screening colon Problems Problem Type SNOMED Code ICD Code Onset Dates Problem Status W/U Status Risk Notes Problem Diverticular disease of colon (049409081) Diverticulosis of large intestine without perforation or abscess without bleeding (K57.30) Active confirmed Encounters Encounter Location Date Provider Diagnosis [facility] [place] Outpatient [address] [place], [place] [phone] 10/10/2023 Arcenio Gomez Colon cancer scree jaylen [...] * ELEAZAR CRAWFORDDOB:[birth year] (69 yo M)Acc No.[id number]:10/10/2023 COLON WITH MAC Patient:?ELEAZAR CRAWFORD Provider:?Arcenio Gomez MD :1955???Age:68 Y???Sex:Male Johnnie e:10/10/2023 Address:[facility] [address], [facility], [id number] Pcp:HUMPHREY POLLARD Subjective: * Chief Complaints: * ???1. Screening colon. * Medical History:? Objective: * Vitals:? Assessment: * Assessment: 1.?Colon cancer screening - Z12.11 (Primary)???2.?Colon polyps - K63.5???3.?Family history of colon cancer - Z80.0???4.?Diverticulosis of large intestine without perforation or abscess without bleeding - K57.30???5. Other hemorrhoids - K64.8??? Plan: * Treatment: * Procedure Codes:?27075 LESIO N REMOVAL COLONOSCOPY, Modifiers: PT , [...] MD Date:? 024 Generated for Juliet florez/Osvaldo/Elinitting on:?09/02/2024 07:14 AM EDT
--- NOTE | 2024-09-02 08:42 | CA_ITS ---
Transthoracic Echocardiogram Patient (Last, First, Middle): Mark Chamberlain P Gender: Male Date of : 1955 Age: 69 Procedure Date: 09/02/2024 Procedure Type: Transthoracic Echocardiogram Location: OP Height: 177.8 cm Weight: 106.6 kg BSA: 2.24 m2 Heart Rate: 70 bpm BP: 124 / 72 mmHg Sales Exec: LUANA Referring MD: Huang Orosco MD Chucking And Sawing Machine Operator: Huang Orosco MD Symptoms: I25.5 - Ischemic cardiomyopathy Study Quality: Adequate w contrast ECG Rhythm: Sinus Conclusions: - . Moderately dilated left ventricle with LVEF of 30-35% which is moderately to severely reduced with grade 2 diastolic dysfunction 2. Moderately reduced right ventricular systolic function 3. Mild biatrial enlargement 4. Mild aortic stenosis and regurgitation 5. Upper limits of normal ascending aortic size 6. No gross pericardial effusion Findings Procedure Information Contrast agent, definity, is being given per protocol without apparent complications. Left Ventricle Moderately increased left ventricular cavity size. There is normal left ventricular wall thickness. The left ventricular systolic function is moderate to severely decreased. Spectral Doppler is indicative of a pseudonormal filling pattern. E/E prime ratio is >15, consistent with elevated filling pressures. Evidence suggests grade II (moderate) diastolic dysfunction. Right Ventricle Normal right ventricular cavity size. There is moderately decreased right ventricular systolic function. Atria The left atrium is mildly dilated. There is lipomatous hypertrophy of the interatrial septum. There is no evidence of interatrial shunt. The right atrium is mildly dilated. Aortic Valve There is mild calcification of the aortic valve. There is mild thickening of the aortic valve. There is mild aortic valve stenosis. The peak aortic gradient is 16 mmHg.The mean gradient is 9 mmHg. The aortic valve area is 1.64 cm2. There is mild aortic valve regurgitation. Mitral Valve There is mild anterior and posterior mitral leaflet thickening. There is mild anterior and mild posterior mitral annular calcification. There is trace mitral valve regurgitation. There is no mitral valve stenosis. Pulmonic Valve The pulmonic valve is likely normal. Tricuspid Valve Tricuspid regurgitation envelope is inadequate for calculation of right ventricular systolic pressure. Normal right atrial pressure. Great Vessels The pulmonary artery was not well visualized. Small plaque is seen in the sino tubular ridge. Venous The inferior vena cava does not collapse with inspiration. Pericardium/Pleural There is no evidence of pericardial effusion. Prior Study Comparison Changes noted compared to prior study dated: 08/01/2023. LV ejection fraction has marginally reduced Measurements 2D Linear Measurements IVSd: 1.18 0.6-0.9/0.6-1.0 cm LVIDd: 6.42 3.9-5.3/4.2-5.9 cm LVIDd Index: 2.87 2.4-3.2/2.2-3.1 cm/m2 LVIDs: 5.45 2.0-3.6 cm LVPWd: 0.84 0.7-1.1 cm LA Diam: 4.80 2.7-3.8/3.0-4.0 cm LAIDs Index: 2.14 1.5-2.3 cm/m2 LV Mass: 350.96 67-162/88-224 g LV Mass Index: 156.68 43-95/49-115 g/m2 LVOT Diam: 2.20 3.0+(-)1.3 cm 2D Systolic Function EF 4C: 23.20 >55% EF 2C: 43.00 >55% EF BiP: 34.50 >55% Mitral Valve MV Pk E: 0.94 MV PK A: 0.73 MV Decel Time: 155.00 E/A: 1.30 E'Lateral: 6.31 E'Medial: 5.44 E/E' Med: 17.20 E/E' Lat: 14.90 PHT: 45.00 MVA PHT: 4.89 Decel Millard: 6.06 Aortic Valve AoV Pk Mikie: 1.97 AoV Mn Mikie: 1.39 AoV VTI: 0.42 AoV Pk Grad: 16.00 Aov Mn Grad: 9.00 JOSE Cont.VTI: 1.64 AI Pk Mikie: 3.88 AI Millard: 2.99 LVOT LVOT Pk Mikie: 0.85 LVOT Mn Mikie: 0.61 LVOT VTI: 0.18 LVOT Pk Grad: 3.00 LVOT Mn Grad: 2.00 LVOT Diam: 2.20 LVOT Area: 3.80 Diastolic Function MV Pk E: 0.94 MV Pk A: 0.73 E/A: 1.30 E'Medial: 5.44 E/E' Med: 17.20 E' Laterial: 6.31 E/E' Lat: 14.90 Right Ventricle TAPSE (mm): 13.70 TVS' Mikie: 5.22 Tricuspid Valve RA Press: 3.00 Great Vessels Aorta Sinus of Valsalva: 3.20 2.0-3.5 cm Ao Asc: 3.50 2.1-3.4 cm Pulmonary Veins Pulm Vein S/D 0.70 Pulmonary Valve PV Pk Mikie: 0.98 Peak PV Grad: 4.00 Updated in Other Vendor System with Status of Final Huang Orosco MD electronically signed on 09/03/2024 4:20:03 PM with status of Final
== END ==
LOC: HO.CARD 07:12
PROVIDERS: PCP Nurse Practitioner Family; Visit Provider Internal Medicine Cardiovascular Disease
DX: D72.829 Elevated white blood cell count, unspecified (principal); I25.5 Ischemic cardiomyopathy
CPT/HCPCS: 71046; 93306; Q9957

== ENCOUNTER → 2024-09-02 07:14 | Outpatient (BNV) | payer MEDICARE, SELFPAY | PROVIDERS: PCP Nurse Practitioner Family; Visit Provider Radiology Diagnostic Radiology | DX: D72.829 Elevated white blood cell count, unspecified (principal) | CPT/HCPCS: 71046 ==

== ENCOUNTER → 2024-09-02 08:42 | Outpatient (BNV) | payer MEDICARE, SELFPAY | PROVIDERS: PCP Nurse Practitioner Family; Visit Provider Internal Medicine Cardiovascular Disease | DX: I50.30 Unspecified diastolic (congestive) heart failure (principal); I51.7 Cardiomegaly; I35.2 Nonrheumatic aortic (valve) stenosis with insufficiency | CPT/HCPCS: 93306 ==

== ENCOUNTER 2024-09-10 07:30 | Outpatient (REF) | payer MEDICARE, SELFPAY ==
--- OUTSIDE RECORDS SUMMARY | 2023-10-10 04:50 | XMS_ITS ---
Author Organization [facility] Address [address] [place] [address] Care Team Providers Care Crumb Packer Name Role Phone HUMPHREY POLLARD Primary Care Provider Arcenio Espinal Unavailable [phone] REASON FOR VISIT screening colon Problems Problem Type SNOMED Code ICD Code Onset Dates Problem Status W/U Status Risk Notes Problem Diverticulosis o f large intestine without perforation or abscess without bleeding (K57.30) Active confirmed Encounters Encounter Location Date Provider Diagnosis [facility] [place] [address] [place] [phone] 10/10/2023 Arcenio Gomez Colon cancer scree jaylen [...] * ELEAZAR CRAWFORDDOB:[birth year] (69 yo M)Acc No.[id number]:10/10/2023 COLON WITH MAC Patient: ELEAZAR WASHINGTON Provider: Maximiliano Gomez MD :1955 A ge:68 Y S ex:Male Date:10/10/2023 Address:[address] [address], [place], [place] Pcp:HUMPHREY POLLARD Subjective: * Chief Complaints: [...] 10/10/2023 Generated for Juliet florez/Osvaldo/Elinitting on: 0 09/10/2024 07:32 AM EDT
[2024-09-10 10:21] LABS: Appearance Urine Clear; Color Urine Yellow; Glucose Urine UA Negative (Negative); Leukocyte Esterase Urine Trace (Negative); Nitrite Urine Negative (Negative); PH 5.5 (5.0-9.0); Specific Gravity - Urine 1.015 (1.005-1.025); UMIC TRIGGER UACC YES; Urine Blood Negative (Negative); Urine Ketones Negative (Negative); Urine Protein Negative (Neg-Trace)
[2024-09-10 10:22] LABS: MANUAL DIFF FLAG NO
[2024-09-10 10:25] LABS: Basophils Absolute Auto 0.1 X10*3/uL (0.0-0.2); Basophils Percent Auto 0.6 % (0-2); Eosinophils Absolute Auto 0.4 X10*3/uL (0.0-0.4); Eosinophils Percent Auto 3.6 % (0-4); Hematocrit 45.8 % (42.0-52.0); Hemoglobin 15.6 g/dl (14.0-18.0); Imm Gran Abs Auto 0.06 X10*3/uL (0.00-0.03); Imm Gran Pct Auto 0.5 % (0.0-0.4); Lymphocytes Absolute Auto 2.3 X10*3/uL (1.2-4.9); Lymphocytes Percent Auto 18.4 % (20-40); Mean Corpuscular HGB Conc 34.1 g/dl (31.0-36.0); Mean Corpuscular Hemoglobin 33.5 pg (27.0-33.0); Mean Corpuscular Volume 98.3 fL (80.0-98.0); Mean Platelet Volume 11.6 fL (9.4-12.4); Monocytes Absolute Auto 0.8 X10*3/uL (0.1-1.2); Monocytes Percent Auto 6.4 % (2-11); Neutrophils Absolute Auto 8.8 x10*3/uL (2.0-8.3); Neutrophils Percent Auto 70.5 % (45-73); Platelet Count 200 X10*3/uL (160-400); Red Blood Count 4.66 X10*6/uL (4.60-5.80); Red Cell Distribution Width 13.4 % (11.0-16.0); White Blood Count 12.4 X10*3/uL (4.8-10.8)
[2024-09-10 10:27] LABS: Bacteria Urine None Seen (None Seen); Hyaline Casts Urine 0-2 /LPF (0-2); RBC Urine 0-2 /HPF (0-2); Squamous Epithelial Cell Urine 0-2 /HPF (0-2); WBC Urine 0-5 /HPF (0-5)
== END 2024-09-10 07:31 | disposition home or self-care (01) ==
LOC: HO.HMGCLDS 07:30
PROVIDERS: PCP Nurse Practitioner Family; Visit Provider Nurse Practitioner Family
DX: D72.829 Elevated white blood cell count, unspecified (principal)
CPT/HCPCS: 36415; 81001; 85025

== ENCOUNTER 2024-10-02 09:37 | Outpatient (AMB) | payer MEDICARE, SELFPAY ==
--- OUTSIDE RECORDS SUMMARY | 2023-10-10 04:50 | XMS_ITS ---
Author Organization [facility] Address [address] [place] [address] Care Team Providers Care Manager Engine Name Role Phone HUMPHREY POLLARD Primary Care Provider Arcenio Espinal Unavailable [phone] REASON FOR VISIT screening colon Problems Problem Type SNOMED Code ICD Code Onset Dates Problem Status W/U Status Risk Notes Problem Diverticular disease of colon (279567749) Diverticulosis of large intestine without perforation or abscess without bleeding (K57.30) Active confirmed Encounters Encounter Location Date Provider Diagnosis [facility] Outpatient [address] [place], [place] [phone] 10/10/2023 Arcenio Gomez Colon cancer scree jaylen [...] * ELEAZAR CRAWFORDDOB:[birth year] (69 yo M)Acc No.[id number]:10/10/2023 COLON WITH MAC Patient: ELEAZAR WASHINGTON Provider: Maximiliano Gomez MD :1955 A ge:68 Y S ex:Male Date:10/10/2023 Address:[address] [address], [facility], [id number] Pcp:HUMPHREY POLLARD Subjective: * Chief Complaints: * [...] Pending * Provider: Maximiliano Gomez MD Date: 10/10/2023 Generated for Juliet florez/Osvaldo/Elinitting on: 10/02/2024 10:08 AM EDT
--- NOTE | 2024-10-02 09:53 | MHC.OFFVIS ---
Vital Signs 10/02/24 09:54 Height 5 ft 10.5 in Weight 238 lb 15.697 oz BMI 33.8 BP 132/60 Blood Pressure Location Lt brachial Position Sitting Pulse 88 Pulse Source Pulse Oximeter Intake Visit Reasons: 4 mth s/p echo/ labs Intake Note: 4 mth f/up-echo/labs Bowling Or Skating Front Desk Clerk Required: No Accompanied by: Self / Same As Patient Allergies No Known Allergies Allergy (Verified 08/27/24 09:36) Medication List - Last Reconciled 10/02/24 by Huang Orosco MD aspirin 81 mg PO DAILY atorvastatin 80 mg PO DAILY ezetimibe 10 mg PO DAILY 90 days isosorbide mononitrate ER 30 mg PO DAILY L.acidophil-L.plantar-Bifido 7 25 billion cell (up4 Probiotics Adult 50 Plus) caps PO metoprolol succinate ER 50 mg PO DAILY multivitamin (Daily Multi-Vitamin tablet) 1 tab PO DAILY rivaroxaban (Xarelto) 2.5 mg PO BID sacubitril-valsartan 24-26 mg (Entresto) 1 tab PO BID vitamin B complex 1 tab PO DAILY HPI Comments Details: Taiwo comes for follow-up. Recent echocardiogram shows further worsening of his LV ejection fraction to 30-35%. He has not noticed any new symptoms. He occasionally gets orthostatic lightheadedness when he gets up from sitting position. Does not drink adequate amount of fluid in the day. Takes all his medications. Blood pressure is generally on current medications have been well controlled. Denies any prolonged palpitation irregular heartbeat. No syncopal episodes. No orthopnea, PND, leg edema. No exertional chest pain. Unfortunately continues to smoke. [facility] Medical History Fatty liver CAD (coronary artery disease) Ischemic cardiomyopathy Bilateral carotid artery stenosis PVD (peripheral vascular disease) Dyslipidemia History of colon polyps Nicotine dependence, cigarettes, uncomplicated Leukocytosis Surgical History History of colonoscopy (~03/2018) History of right-sided carotid endarterectomy (~10/2018) History of atherectomy (~09/2020) History of coronary artery bypass graft (~08/2016) Family History Father Stroke CVD (cardiovascular disease) Substance use disorder Mother CVD (cardiovascular disease) Substance use disorder Brother No problems noted. Sister Substance use disorder Social History Housing: House Alcohol intake: current Alcohol intake frequency: a few times a week Alcohol type: beer Patient Tobacco Use Status: Current everyday Tobacco user Cigarettes Per Day: 10 Years Smoked: (current smoker - onset 21yo, 1-1.5ppd x 45yrs, 50pyh) e-Cigarette/Vaping Use: Never Used Second Hand Smoke Exposure: No service: Yes Current occupational status: employed and retired Current occupational exposures/hazards: Yes Cognitive needs: No Hearing needs: No Vision needs: No Review of Systems Const Denies chills, Denies fatigue, Denies fever(s), Denies frequent falls, Denies weakness, Denies weight gain and Denies weight loss ENT Denies dizziness Card Denies chest pain, Denies leg edema, Denies lightheadedness, Denies palpitations, Denies dyspnea and Denies dyspnea on exertion Resp Denies cough, Denies dyspnea and Denies dyspnea on exertion GI Denies hematochezia Musc Denies abnormal gait, Denies muscle weakness, Denies numbness, Denies radiating pain into limb and Denies tingling Neuro Denies abnormal gait, Denies dizziness, Denies frequent falls, Denies numbness, Denies tingling and Denies weakness Endo Denies fatigue and Denies palpitations Physical Exam Vital Signs: Last Vital Signs Pulse 88 10/02/24 09:54 BP 132/60 10/02/24 09:54 BMI result Body Mass Index 33.8 Const General: cooperative, comfortable, no acute distress, alert and awake Nutritional Appearance: obese Orientation/consciousness: patient oriented x3 Limitations: no limitations Neck Neck: Yes trachea midline and Yes supple Resp Effort & Inspection: normal respiratory effort Auscultation: clear to auscultation bilaterally and diminished lung sounds Cardio Jugular venous distension: no JVD Palpation: normal PMI Rate: regular rate Rhythm: regular rhythm Heart sounds: S1 normal heart sound present, S2 normal heart sound present, Murmur heart sound present systolic early and Other heart sounds present (S4 present) Peripheral pulses: Peripheral pulses 2+ throughout Skin General skin exam: no rashes or lesions noted Neuro General: patient oriented x3 and no focal motor deficits Extrem General: Yes no clubbing, cyanosis or edema Psych Appearance: grossly normal Assessment & Plan Assessment & Plan (1) Ischemic cardiomyopathy: Code(s): I25.5 - Ischemic cardiomyopathy Category: Medical Plan: Ischemic cardiomyopathy without overt signs of congestive heart failure with further worsening of his LV ejection fraction despite current neurohormonal modulation. We discussed about signs and symptoms of heart failure. Understands. Meanwhile will bump up his metoprolol to 50 mg b.i.d. and Entresto to 49-51 mg b.i.d. for further neurohormonal modulation. Follow-up blood work in 1-2 weeks. Follow-up limited echocardiogram couple of months. If remains with persistent LV systolic and ejection fraction below 35% will refer him to EPS for ICD placement. EKGs in 2 months. (2) CAD (coronary artery disease): Code(s): I25.10 - Atherosclerotic heart disease of [place] coronary artery without angina pectoris Category: Medical Plan: CAD with diffuse coronary disease with no symptoms of angina on current medical therapy. Worsening on LV ejection fraction most likely related to cardiomyopathy process. Continue current aggressive risk factor modification. Smoking cessation was advised but unlikely that he will be able to pursue that. Continue high-intensity statin therapy with ezetimibe therapy to target goal LDL less than 60 mg/dL. Blood pressure is currently well optimized. Uptitration as above. Encouraged to maintain activity level as tolerated. Given his diffuse vascular disease continue Xarelto to reduce thromboembolic as well as limb related events. Follow up in the clinic in 2 months time, sooner p.r.n.. Thank you for allowing me to partake in his care Coding Level of Care Code Est Pt Level 4 (38817) Complex EM visit Add On G2211 Diagnoses Ischemic cardiomyopathy I25.5 CAD (coronary artery disease) I25.10
[2024-10-02 09:54] VITALS: BP 132/60; PULSE 88; BMI 33.8
== END 2024-10-02 10:13 | disposition home or self-care (01) ==
LOC: HO.HCS 09:38
PROVIDERS: PCP Nurse Practitioner Family; Visit Provider Internal Medicine Cardiovascular Disease
DX: I25.5 Ischemic cardiomyopathy (principal); I25.10 Atherosclerotic heart disease of native coronary artery without angina pectoris
CPT/HCPCS: 99214; G2211

== ENCOUNTER → 2024-10-02 09:37 | Outpatient (BNVA) | payer MEDICARE, SELFPAY | PROVIDERS: PCP Nurse Practitioner Family; Visit Provider Internal Medicine Cardiovascular Disease | DX: I25.5 Ischemic cardiomyopathy (principal); I25.10 Atherosclerotic heart disease of native coronary artery without angina pectoris | CPT/HCPCS: 99212 ==

== ENCOUNTER 2024-10-09 08:36 | Outpatient (REF) | payer MEDICARE, SELFPAY ==
--- OUTSIDE RECORDS SUMMARY | 2023-10-10 04:50 | XMS_ITS ---
Author Organization [facility] Address [address] [place] [address] Care Team Providers Care Shipyard Supervisor Name Role Phone UHMPHREY POLLARD Primary Care Provider Arcenio Espinal Unavailable [phone] REASON FOR VISIT screening colon Problems Problem Type SNOMED Code ICD Code Onset Dates Problem Status W/U Status Risk Notes Problem Diverticular disease of colon (575097717) Diverticulosis of large intestine without perforation or abscess without bleeding (K57.30) Active confirmed Encounters Encounter Location Date Provider Diagnosis [facility] Outpatient [address] [place], [place] [phone] 10/10/2023 Arcenio Gomez Colon cancer scree jaylen [...] * ELEAZAR CRAWFORDDOB:[birth year] (69 yo M)Acc No.[id number]:10/10/2023 COLON WITH MAC Patient: ELEAZAR WASHINGTON Provider: Maximiliano Gomez MD :1955 A ge:68 Y S ex:Male Date:10/10/2023 Address:[address] [address], [facility], [id number] Pcp:HUMPHREY POLLARD Subjective: * Chief Complaints: * [...] Date: 10/10/2023 Generated for Juliet florez/Osvaldo/Elinitting on: 10/09/2024 08:44 AM EDT
[2024-10-09 10:04] LABS: MANUAL DIFF FLAG NO
[2024-10-09 10:11] LABS: Hematocrit 45.3 % (42.0-52.0); Hemoglobin 15.6 g/dl (14.0-18.0); Imm Gran Abs Auto 0.06 X10*3/uL (0.00-0.03); Imm Gran Pct Auto 0.5 % (0.0-0.4); Lymphocytes Absolute Auto 2.1 X10*3/uL (1.2-4.9); Mean Corpuscular HGB Conc 34.4 g/dl (31.0-36.0); Mean Corpuscular Hemoglobin 33.5 pg (27.0-33.0); Mean Corpuscular Volume 97.4 fL (80.0-98.0); NRBC Abs Auto 0.000 X10*3/uL (0.0-0.012); NRBC Pct Auto 0.0 /100WBC (0.0-0.2); Platelet Count 191 X10*3/uL (160-400); Red Blood Count 4.65 X10*6/uL (4.60-5.80); White Blood Count 11.9 X10*3/uL (4.8-10.8)
[2024-10-09 10:54] LABS: Appearance Urine Clear; Glucose Urine UA Negative (Negative); PH 5.5 (5.0-9.0); Specific Gravity - Urine 1.015 (1.005-1.025)
== END 2024-10-09 08:37 | disposition home or self-care (01) ==
LOC: HO.HMGCLDS 08:36
PROVIDERS: PCP Nurse Practitioner Family; Visit Provider Nurse Practitioner Family
DX: I10 Essential (primary) hypertension (principal); D72.829 Elevated white blood cell count, unspecified; I25.10 Atherosclerotic heart disease of native coronary artery without angina pectoris; E78.5 Hyperlipidemia, unspecified
CPT/HCPCS: 36415; 81003; 85025

== ENCOUNTER 2024-11-10 09:06 | Outpatient (REF) | payer MEDICARE, SELFPAY ==
--- OUTSIDE RECORDS SUMMARY | 2023-10-10 04:50 | XMS_ITS ---
Author Organization [facility] Address [address] [place] [address] Care Team Providers Care Ruby On Rails Software Developer Name Role Phone HUMPHREY POLLARD Primary Care Provider Arcenio Espinal Unavailable [phone] REASON FOR VISIT screening colon Problems Problem Type SNOMED Code ICD Code Onset Dates Problem Status W/U Status Risk Notes Problem Diverticulosis o f large intestine without perforation or abscess without bleeding (K57.30) Active confirmed Encounters Encounter Location Date Provider Diagnosis [facility] Outpatient [address] [place] [phone] 10/10/2023 Arcenio Gomez Colon cancer scree jaylen [...] * ELEAZAR CRAWFORDDOB:[birth year] (69 yo M)Acc No.[id number]:10/10/2023 COLON WITH MAC Patient: ELEAZAR WASHINGTON Provider: Maximiliano Gomez MD :1955 A ge:68 Y S ex:Male Date:10/10/2023 Address:[address] [address], [place], [id number] Pcp:HUMPHREY POLLARD Subjective: * Chief Complaints: * [...] 10/10/2023 Generated for Juliet florez/Osvaldo/Elinitting on: 0 11/10/2024 09:35 AM EDT
[2024-11-10 10:00] LABS: MANUAL DIFF FLAG NO
[2024-11-10 10:03] LABS: Hematocrit 46.2 % (42.0-52.0); Hemoglobin 16.0 g/dl (14.0-18.0); Imm Gran Abs Auto 0.05 X10*3/uL (0.00-0.03); Imm Gran Pct Auto 0.4 % (0.0-0.4); Lymphocytes Absolute Auto 2.1 X10*3/uL (1.2-4.9); Mean Corpuscular HGB Conc 34.6 g/dl (31.0-36.0); Mean Corpuscular Hemoglobin 33.8 pg (27.0-33.0); Mean Corpuscular Volume 97.5 fL (80.0-98.0); NRBC Abs Auto 0.000 X10*3/uL (0.0-0.012); NRBC Pct Auto 0.0 /100WBC (0.0-0.2); Platelet Count 205 X10*3/uL (160-400); Red Blood Count 4.74 X10*6/uL (4.60-5.80); White Blood Count 12.5 X10*3/uL (4.8-10.8)
== END 2024-11-10 09:07 | disposition home or self-care (01) ==
LOC: HO.HMGCLDS 09:06
PROVIDERS: PCP Nurse Practitioner Family; Visit Provider Nurse Practitioner Family
DX: D72.829 Elevated white blood cell count, unspecified (principal)
CPT/HCPCS: 36415; 85025

== ENCOUNTER 2024-11-12 09:02 | Outpatient (REF) | payer MEDICARE, SELFPAY ==
--- OUTSIDE RECORDS SUMMARY | 2023-10-10 04:50 | XMS_ITS ---
Author Organization [facility] Address [address] [place] [address] Care Team Providers Care Covered Buckle Assembler Name Role Phone HUMPHREY POLLARD Primary Care Provider Arcenio Espinal Unavailable [phone] REASON FOR VISIT screening colon Problems Problem Type SNOMED Code ICD Code Onset Dates Problem Status W/U Status Risk Notes Problem Diverticular disease of colon (467594649) Diverticulosis of large intestine without perforation or abscess without bleeding (K57.30) Active confirmed Encounters Encounter Location Date Provider Diagnosis [facility] [place] [facility] [address] [place], [place] [phone] 10/10/2023 Arcenio Gomez Colon cancer scree jaylen [...] * ELEAZAR CRAWFORDDOB:[birth year] (69 yo M)Acc No.[id number]:10/10/2023 COLON WITH MAC Patient: ELEAZAR WASHINGTON Provider: Maximiliano Gomez MD :1955 A ge:68 Y S ex:Male Date:10/10/2023 Address:[address] [address], [facility], [id number] Pcp:HUMPHREY POLLARD Subjective: * Chief Complaints: * [...] 0 10/10/2023 Generated for Juliet florez/Osvaldo/Elinitting on: 0 11/12/2024 09:44 AM EDT
--- NOTE | ~2024-11-12 | XR_ITS ---
EXAMINATION: XR CHEST CLINICAL INFORMATION: D72.829 - Elevated white blood cell count, unspecified COMPARISON: September 02, 2024 TECHNIQUE: 2 views of the chest were obtained. FINDINGS: Pulmonary reticular pattern. No consolidation, pleural effusion or pneumothorax. Sternal wires. Cardiomediastinal silhouette size is normal. Calcified plaque thoracic aorta. Multilevel thoracolumbar spondylosis. S-shaped curvature of the thoracolumbar spine no fully assess. XR/XR chest 2V IMPRESSION: Chronic interstitial lung disease without acute airspace disease. Electronically signed by: Jason Hartley MD 11/12/2024 10:23 AM EDT
[2024-11-12 10:50] LABS: Appearance Urine Clear; Glucose Urine UA Negative (Negative); PH 5.5 (5.0-9.0); Specific Gravity - Urine 1.020 (1.005-1.025); UMIC TRIGGER UACC YES
== END 2024-11-12 09:03 | disposition home or self-care (01) ==
LOC: HO.HMGCX 09:02
PROVIDERS: PCP Nurse Practitioner Family; Visit Provider Nurse Practitioner Family
DX: D72.829 Elevated white blood cell count, unspecified (principal)
CPT/HCPCS: 71046; 81001

== ENCOUNTER → 2024-11-12 09:36 | Outpatient (BNV) | payer MEDICARE, SELFPAY | PROVIDERS: PCP Nurse Practitioner Family; Visit Provider Radiology Diagnostic Radiology | DX: J84.9 Interstitial pulmonary disease, unspecified (principal) | CPT/HCPCS: 71046 ==

== ENCOUNTER → 2024-12-04 09:31 | Outpatient (REF) | payer MEDICARE, SELFPAY ==
--- OUTSIDE RECORDS SUMMARY | 2023-10-10 04:50 | XMS_ITS ---
Author Organization [facility] Address [address] [place] [address] Care Team Providers Care Rolling Attendant Name Role Phone HUMPHREY POLLARD Primary Care Provider Arcenio Espinal Unavailable [phone] REASON FOR VISIT screening colon Problems Problem Type SNOMED Code ICD Code Onset Dates Problem Status W/U Status Risk Notes Problem Diverticular disease of colon (458585775) Diverticulosis of large intestine without perforation or abscess without bleeding (K57.30) Active confirmed Encounters Encounter Location Date Provider Diagnosis [facility] Outpatient [address] [place], [place] [phone] 10/10/2023 Arcenio Gomez Colon cancer scree jaylen [...] * ELEAZAR CRAWFORDDOB:[birth year] (69 yo M)Acc No.[id number]:10/10/2023 COLON WITH MAC Patient: ELEAZAR WASHINGTON Provider: Maximiliano Gomez MD :1955 A ge:68 Y S ex:Male Date:10/10/2023 Address:[address] [address], [facility], [id number] Pcp:HUMPHREY POLLARD Subjective: * Chief Complaints: * [...] Sign off status: Pending * Provider: Maximiliano Goemz MD Date: 0 10/10/2023 Generated for Juliet florez/Osvaldo/Elinitting on: 0 12/04/2024 11:05 AM EDT
--- NOTE | 2024-12-04 09:33 | CA_ITS ---
Transthoracic Echocardiogram Patient (Last, First, Middle): Mark Chamberlain P Gender: Male Date of : 1955 Age: 69 Procedure Date: 12/04/2024 Procedure Type: Transthoracic Echocardiogram Location: OP Height: 177.8 cm Weight: 106.6 kg BSA: 2.24 m2 Heart Rate: 76 bpm BP: 132 / 60 mmHg Apparel Sales Associate: LUANA Referring MD: Huang Orosco MD Wealth Management Advisor: Huang Orosco MD Symptoms: I42.9 - Cardiomyopathy, unspecified Study Quality: Adequate w contrast ECG Rhythm: Sinus Conclusions: - Mildly to moderately dilated left ventricle with LVEF of 30 35% with underlying regional wall motion abnormality consistent with ischemic cardiomyopathy with impaired relaxation filling pattern Findings Procedure Information Contrast agent, definity, is being given per protocol without apparent complications. Left Ventricle Moderately increased left ventricular cavity size. There is mildly increased left ventricular wall thickness. The left ventricular systolic function is moderate to severely decreased. The visually estimated ejection fraction is between 30-35%. Spectral Doppler is indicative of an impaired relaxation filling pattern. E/E prime ratio is between 8 and 15 consistent with indeterminate filling pressures. Prior Study Comparison No significant change compared to prior study dated: 09/02/2024. Measurements 2D Linear Measurements IVSd: 1.43 0.6-0.9/0.6-1.0 cm LVIDd: 5.96 3.9-5.3/4.2-5.9 cm LVIDd Index: 2.66 2.4-3.2/2.2-3.1 cm/m2 LVIDs: 4.88 2.0-3.6 cm LVPWd: 0.76 0.7-1.1 cm LV Mass: 343.03 67-162/88-224 g LV Mass Index: 153.14 43-95/49-115 g/m2 LVOT Diam: 2.30 3.0+(-)1.3 cm 2D Systolic Function EF 4C: 31.60 >55% EF 2C: 36.20 >55% EF BiP: 34.90 >55% Mitral Valve MV Pk E: 0.80 MV PK A: 0.86 MV Decel Time: 163.00 E/A: 0.90 E'Lateral: 6.96 E'Medial: 6.64 E/E' Med: 12.10 E/E' Lat: 11.50 PHT: 48.00 MVA PHT: 4.58 Decel Menard: 4.92 LVOT LVOT Pk Mikie: 1.01 LVOT Mn Mikie: 0.66 LVOT VTI: 0.20 LVOT Pk Grad: 4.00 LVOT Mn Grad: 2.00 LVOT Diam: 2.30 LVOT Area: 4.15 Diastolic Function MV Pk E: 0.80 MV Pk A: 0.86 E/A: 0.90 E'Medial: 6.64 E/E' Med: 12.10 E' Laterial: 6.96 E/E' Lat: 11.50 Pulmonary Veins Pulm Vein S/D 1.10 Updated in Other Vendor System with Status of Final Huang Orosco MD electronically signed on 12/05/2024 1:25:15 PM with status of Final
--- OUTSIDE RECORDS SUMMARY | 2024-12-04 11:05 | XMS_ITS | Patient Health Record ---
Author Organization [facility] Address [address] [place] [address] Care Team Providers Care Graphic Pre Press Trades Worker Name Role Phone HUMPHREY POLLARD Primary Care Provider Arcenio Espinal [phone] Allergies No Known Allergies Reason For Referral No Information Medications Medication [...] Problem Status W/U Status Risk Notes Problem 890517611 Encounter for screening for malignant neoplasm of colon (Z12.11) Active confirmed Problem Diverticular disease of colon (559574496) Diverticulosis of large intestine without perforation or abscess without bleeding (K57.30) Active confirmed Problem Screening for malignant neoplasm of rectum (717629228) Encounter for screening for malignant neoplasm of rectum (Z12.12) Active confirmed Problem 723603531 Preprocedural examination (Z01.818) Active confirmed Problem History of polyp of colon (252157667) History of colon polyps (Z86.010) Active confirmed Problem 297445252985764 Pre-procedural examination (Z01.818) Active confirmed Plan Of Treatment Future Test Test Name Order Date COLONOSCOPY 07/11/2016 COLONOSCOPY 12/27/2017 COLONOSCOPY 07/03/2023 Insurance Providers Payer Name Payer Address Payer Phone Subscriber Number Group Number Insured Name Patient Relationship to Insured Coverage Start Date Coverage End Date [facility] [address] [place] [address] [phone] [id number] ELEAZAR CRAWFORD Self - patient is the insured Medical (General) History Medical History History ICD Code Colonoscopy age 51--he reports that some polyps were removed--in [place] Denies [place],DM,CVA,Lung disease,renal dise ase Hyperlipidemia CAD--4V CABG in 08/2016 PVD Colonoscopy 03/2018 with hyperplastic sampson typs He thinks he has atrial fibrillation. He is followed by Dr. Orosco. Surgical History Surgery Date(Month/Year) Vocal cords 4V CABG 09/20/2016 Vascular left leg 2020 Right carotid endarterectomy 2018
== END ==
LOC: HO.CARD 09:31
PROVIDERS: PCP Nurse Practitioner Family; Visit Provider Internal Medicine Cardiovascular Disease
DX: I42.9 Cardiomyopathy, unspecified (principal); I25.5 Ischemic cardiomyopathy
CPT/HCPCS: 93308; Q9957

== ENCOUNTER → 2024-12-04 09:33 | Outpatient (BNV) | payer MEDICARE, SELFPAY | PROVIDERS: PCP Nurse Practitioner Family; Visit Provider Internal Medicine Cardiovascular Disease | DX: I42.9 Cardiomyopathy, unspecified (principal) | CPT/HCPCS: 93308; 93321 ==

== ENCOUNTER 2025-01-07 08:19 | Outpatient (AMB) | payer MEDICARE, SELFPAY ==
--- OUTSIDE RECORDS SUMMARY | 2023-10-10 04:50 | XMS_ITS ---
Author Organization [facility] Address [address] [place] [address] Care Team Providers Care Form Setter/Driver Name Role Phone HUMPHREY POLLARD Primary Care Provider Arcenio Espinal Unavailable [phone] REASON FOR VISIT screening colon Problems Problem Type SNOMED Code ICD Code Onset Dates Problem Status W/U Status Risk Notes Problem Diverticular disease of colon (475166777) Diverticulosis of large intestine without perforation or abscess without bleeding (K57.30) Active confirmed Encounters Encounter Location Date Provider Diagnosis [facility] [place], [place] [phone] 10/10/2023 Arceino Gomez Colon cancer scree jaylen Z12.11 ; [...] * ELEAZAR CRAWFORDDOB:[birth year] (69 yo M)Acc No.[id number]:10/10/2023 COLON WITH MAC Patient: ELEAZAR WASHINGTON Provider: Maximiliano Gomez MD :1955 A ge:68 Y S ex:Male Date:10/10/2023 Address:[place] [address] [address], [facility], [id number] Pcp:HUMPHREY POLLARD Subjective: * Chief Complaints: * [...] 10/10/2023 Generated for Juliet florez/Osvaldo/Elinitting on: 1 08:40 AM EDT
[2025-01-07 08:39] VITALS: BP 100/60; PULSE 78; BMI 34.0
--- NOTE | 2025-01-07 08:39 | A.OFFVIS_ITS ---
Vital Signs 01/07/25 08:39 Height 5 ft 10.5 in Weight 240 lb 4.862 oz BMI 34.0 BP 100/60 Blood Pressure Location Lt brachial Position Sitting Pulse 78 Pulse Source Pulse Oximeter Intake Visit Reasons: follow up / limited echo Fire Equipment Inspector Helper Required: No Accompanied by: Self / Same As Patient Allergies No Known Allergies Allergy (Verified 08/27/24 09:36) Medication List - Last Reconciled 01/07/25 by Huang Orosco MD aspirin 81 mg PO DAILY atorvastatin 80 mg PO DAILY ezetimibe 10 mg PO DAILY 90 days isosorbide mononitrate ER 30 mg PO DAILY L.acidophil-L.plantar-Bifido 7 25 billion cell (up4 Probiotics Adult 50 Plus) caps PO metoprolol succinate ER 50 mg PO Q12H multivitamin (Daily Multi-Vitamin tablet) 1 tab PO DAILY rivaroxaban (Xarelto) 2.5 mg PO BID sacubitril-valsartan 49-51 mg (Entresto) 1 tab PO BID vitamin B complex 1 tab PO DAILY HPI Comments Details: Mark comes for follow-up for his echocardiogram results. This shows LV EF of persistent moderately severe reduction with LVEF of 30-35% with wall motion abnormality consistent with ischemic cardiomyopathy. He complains of symptoms of claudication. Denies any worsening symptoms of heart failure. No orthopnea, PND, leg edema. No exertional chest pain. Taking all his medications. Unfortunately continues to smoke. EKGs shows normal sinus rhythm with right bundle-branch block with QRS of 138 milliseconds. [facility] Medical History Fatty liver CAD (coronary artery disease) Ischemic cardiomyopathy Bilateral carotid artery stenosis PVD (peripheral vascular disease) Dyslipidemia History of colon polyps Nicotine dependence, cigarettes, uncomplicated Leukocytosis Surgical History History of colonoscopy (~03/2018) History of right-sided carotid endarterectomy (~10/2018) History of atherectomy (~09/2020) History of coronary artery bypass graft (~08/2016) Family History Father Stroke CVD (cardiovascular disease) Substance use disorder Mother CVD (cardiovascular disease) Substance use disorder Brother No problems noted. Sister Substance use disorder Social History Housing: House Alcohol intake: current Alcohol intake frequency: a few times a week Alcohol type: beer Patient Tobacco Use Status: Current everyday Tobacco user Cigarettes Per Day: 10 Years Smoked: (current smoker - onset 21yo, 1-1.5ppd x 45yrs, 50pyh) e-Cigarette/Vaping Use: Never Used Second Hand Smoke Exposure: No service: Yes Current occupational status: employed and retired Current occupational exposures/hazards: Yes Cognitive needs: No Hearing needs: No Vision needs: No Review of Systems Const Denies chills, Denies fatigue, Denies fever(s), Denies frequent falls, Denies weakness, Denies weight gain and Denies weight loss ENT Denies dizziness Card Denies chest pain, Denies leg edema, Denies lightheadedness, Denies palpitations, Denies dyspnea and Denies dyspnea on exertion Resp Denies cough, Denies dyspnea and Denies dyspnea on exertion GI Denies hematochezia Musc Denies abnormal gait, Denies muscle weakness, Denies numbness, Denies radiating pain into limb and Denies tingling Neuro Denies abnormal gait, Denies dizziness, Denies frequent falls, Denies numbness, Denies tingling and Denies weakness Endo Denies fatigue and Denies palpitations Physical Exam Vital Signs: Last Vital Signs Pulse 78 01/07/25 08:39 BP 100/60 01/07/25 08:39 BMI result Body Mass Index 34.0 Const General: cooperative, comfortable, no acute distress, alert and awake Nutritional Appearance: obese Orientation/consciousness: patient oriented x3 Limitations: no limitations Neck Neck: Yes trachea midline and Yes supple Resp Effort & Inspection: normal respiratory effort Auscultation: clear to auscultation bilaterally and diminished lung sounds Cardio Jugular venous distension: no JVD Palpation: normal PMI Rate: regular rate Rhythm: regular rhythm Heart sounds: S1 normal heart sound present, S2 normal heart sound present, Murmur heart sound present systolic early and Other heart sounds present (S4 present) Peripheral pulses: Peripheral pulses 2+ throughout Skin General skin exam: no rashes or lesions noted Neuro General: patient oriented x3 and no focal motor deficits Extrem General: Yes no clubbing, cyanosis or edema Psych Appearance: grossly normal Assessment & Plan Assessment & Plan (1) Ischemic cardiomyopathy: Code(s): I25.5 - Ischemic cardiomyopathy Category: Medical Plan: Severe ischemic cardiomyopathy with NYHA class 2 symptoms with no overt signs of heart failure. Patient has persistent LV systolic dysfunction despite maximized neurohormonal modulation. At this point time we discussed about the need for ICD placement to reduce risk of sudden cardiac that. He is agreeable. Will refer to EPS. For now continue neurohormonal modulation with metoprolol and Entresto therapy. Encouraged to maintain blood pressure monitoring at home. Signs and symptoms of heart failure were discussed. He understands and agrees. (2) CAD (coronary artery disease): Code(s): I25.10 - Atherosclerotic heart disease of [place] coronary artery without angina pectoris Category: Medical Plan: CAD with remote coronary artery bypass grafting with no current symptoms of angina. Continue lifelong aspirin therapy. Continue aggressive lipid modification with current high-intensity statin and ezetimibe therapy with target goal LDL less than 60 mg/dL. Continue aggressive blood pressure control which is currently well optimized. Given diffuse vascular disease, he is also on low-dose Xarelto therapy. Continue follow with vascular surgery. Smoking cessation was strongly advised. Will follow up in the clinic in 3 months time, sooner p.r.n.. Thank you for all owing me to partake in his care Coding Level of Care Code Est Pt Level 4 (18622) Complex EM visit Add On G2211 Diagnoses Ischemic cardiomyopathy I25.5 CAD (coronary artery disease) I25.10
--- OUTSIDE RECORDS SUMMARY | 2025-01-07 08:40 | XMS_ITS | Patient Health Record ---
Author Organization [facility] Address [address] [place] [address] Care Team Providers Care Drivers' Cash Clerk Name Role Phone HUMPHREY POLLARD Primary Care Provider Arcenio Espinal [phone] Allergies No Known Allergies Reason For Referral [...] TAKE 1 TABLET BY MOUTH EVERY DAY Oral; Duration: 90 Active Metoprolol Succinate ER 50 MG Oral; Duration: 90 Active Xarelto 2.5 MG Oral; Duration: 60 Active Isosorbide Mononitrate ER 30 MG TAKE 1 TABLET BY MOUTH EVERY DAY Oral; Duration: 90 Active Social History Tobacco Use: Social [...] Problem Status W/U Status Risk Notes Problem Screening for malignant neoplasm of colon (793301352) Encounter for screening for malignant neoplasm of colon (Z12.11) Active confirmed Problem Diverticular disease of colon (713235251) Diverticulosis of large intestine without perforation or abscess without bleeding (K57.30) Active confirmed Problem Screening for malignant neoplasm of rectum (092320555) Encounter for screening for malignant neoplasm of rectum (Z12.12) Active confirmed Problem Preprocedural examination (261972666616457) Preprocedural examination (Z01.818) Active confirmed Problem History of polyp of colon (situation) (351410198) History of colon polyps (Z86.010) Active confirmed Problem Pre-procedure evaluation check (277724381) Pre-procedural examination (Z01.818) Active confirmed Plan Of Treatment Future Test Test Name Order Date COLONOSCOPY 07/11/2016 COLONOSCOPY 12/27/2017 COLONOSCOPY 07/03/2023 Insurance Providers Payer Name Payer Address Payer Phone Subscriber Number Group Number Insured Name Patient Relationship to Insured Coverage Start Date Coverage End Date [facility] [address] [place] [address] [id number] ELEAZAR CRAWFORD Self - patient is the insured Medical (General) History Medical History History ICD Code Colonoscopy age 51--he reports that some polyps were removed--in [place] Denies [place],DM,CVA,Lung disease,renal dise ase Hyperlipidemia CAD--4V CABG in 08/2016 PVD Colonoscopy 03/2018 with hyperplastic sampson typs He thinks he has atrial fibrillation. He is followed by Dr. Orosco. Surgical History Surgery Date(Month/Year) Vocal cords 4V CABG 09/20/2016 Vascular left leg 2020 Right carotid endarterectomy 2018
== END 2025-01-07 08:55 | disposition home or self-care (01) ==
LOC: HO.HCS 08:20
PROVIDERS: PCP Nurse Practitioner Family; Visit Provider Internal Medicine Cardiovascular Disease
DX: I25.5 Ischemic cardiomyopathy (principal); I25.10 Atherosclerotic heart disease of native coronary artery without angina pectoris
CPT/HCPCS: 99214; G2211

== ENCOUNTER → 2025-01-07 08:19 | Outpatient (BNVA) | payer MEDICARE, SELFPAY | PROVIDERS: PCP Nurse Practitioner Family; Visit Provider Internal Medicine Cardiovascular Disease | DX: I25.5 Ischemic cardiomyopathy (principal); I25.10 Atherosclerotic heart disease of native coronary artery without angina pectoris | CPT/HCPCS: 99212 ==

== ENCOUNTER 2025-01-22 14:10 | Outpatient (REF) | payer MEDICARE, SELFPAY ==
--- OUTSIDE RECORDS SUMMARY | 2023-10-10 04:50 | XMS_ITS ---
Author Organization [facility] Address [address] [place] [address] Care Team Providers Care Inside Polisher Name Role Phone HUMPHREY POLLARD Primary Care Provider Arcenio Espinal Unavailable [phone] REASON FOR VISIT screening colon Problems Problem Type SNOMED Code ICD Code Onset Dates Problem Status W/U Status Risk Notes Problem Diverticular disease of colon (247334783) Diverticulosis of large intestine without perforation or abscess without bleeding (K57.30) Active confirmed Encounters Encounter Location Date Provider Diagnosis [facility] Outpatient [address] [place], [place] [phone] 10/10/2023 Arcenio Gomez Colon cancer scree jaylen [...] Of Treatment No Information Progress Notes * ELEZAAR CRAWFORDDOB:[birth year] (69 yo M)Acc No.[id number]:10/10/2023 COLON WITH MAC Patient: ELEAZAR WASHINGTON Provider: Maximiliano Gomez MD :1955 A ge:68 Y S ex:Male Date:10/10/2023 Address:[address] [address], [facility], [id number] Pcp:HUMPHREY POLLARD Subjective: * Chief Complaints: * [...] 0 10/10/2023 Generated for Juliet florez/Osvaldo/Elinitting on: 05:15 PM EDT
[2025-01-22 16:08] LABS: MANUAL DIFF FLAG NO
[2025-01-22 16:19] LABS: Hematocrit 44.4 % (42.0-52.0); Hemoglobin 15.0 g/dl (14.0-18.0); Imm Gran Abs Auto 0.07 X10*3/uL (0.00-0.03); Imm Gran Pct Auto 0.5 % (0.0-0.4); Lymphocytes Absolute Auto 2.7 X10*3/uL (1.2-4.9); Mean Corpuscular HGB Conc 33.8 g/dl (31.0-36.0); Mean Corpuscular Hemoglobin 33.7 pg (27.0-33.0); Mean Corpuscular Volume 99.8 fL (80.0-98.0); NRBC Abs Auto 0.000 X10*3/uL (0.0-0.012); NRBC Pct Auto 0.0 /100WBC (0.0-0.2); Platelet Count 226 X10*3/uL (160-400); Red Blood Count 4.45 X10*6/uL (4.60-5.80); White Blood Count 13.1 X10*3/uL (4.8-10.8)
[2025-01-22 16:25] LABS: Anion Gap 11 (12-20); Blood Urea Nitrogen 17 mg/dL (9-16); Calcium 9.2 mg/dL (8.4-10.2); Carbon Dioxide 26 mmol/L (22-29); Chloride 107 mmol/L (96-108); Estimated Glomerular Filt Rate 59; Potassium 4.6 mmol/L (3.3-5.1); Sodium 139 mmol/L (135-145)
[2025-01-22 16:53] LABS: INTERNATIONAL NORM RATIO 1.0 (0.9-1.1); Prothrombin Time 11.6 SEC (10.9-12.4)
--- OUTSIDE RECORDS SUMMARY | 2025-01-22 17:15 | XMS_ITS | Patient Health Record ---
Author Organization [facility] Address [address] [place] [address] Care Team Providers Care Docent Coordinator Name Role Phone HUMPHREY POLLADR Primary Care Provider Arcenio Espinal [phone] Allergies No Known Allergies Reason For Referral [...] Problem Screening for malignant neoplasm of colon (928862874) Encounter for screening for malignant neoplasm of colon (Z12.11) Active confirmed Problem Diverticular disease of colon (436180018) Diverticulosis of large intestine without perforation or abscess without bleeding (K57.30) Active confirmed Problem Screening for malignant neoplasm of rectum (731550544) Encounter for screening for malignant neoplasm of rectum (Z12.12) Active confirmed Problem Preprocedural examination (073420900529356) Preprocedural examination (Z01.818) Active confirmed Problem History of polyp of colon (situation) (639819793) History of colon polyps (Z86.010) Active confirmed Problem Pre-procedure evaluation check (710822705) Pre-procedural examination (Z01.818) Active confirmed Plan Of Treatment Future Test Test Name Order Date COLONOSCOPY 07/11/2016 COLONOSCOPY 12/27/2017 COLONOSCOPY 07/03/2023 Insurance Providers Payer Name Payer Address Payer Phone Subscriber Number Group Number Insured Name Patient Relationship to Insured Coverage Start Date Coverage End Date [facility] [address] [place] [address] [id number] ELEAZAR CRAWFORD Self - patient is the insured Medical (General) History Medical History History ICD Code Colonoscopy age 51--he reports that some polyps were removed--in [place] Denies ID,DM,CVA,Lung disease,renal dise ase Hyperlipidemia CAD--4V CABG in 08/2016 PVD Colonoscopy 03/2018 with hyperplastic sampson typs He thinks he has atrial fibrillation. He is followed by Dr. Orosco. Surgical History Surgery Date(Month/Year) Vocal cords 4V CABG 09/20/2016 Vascular left leg 2020 Right carotid endarterectomy 2018
== END 2025-01-22 14:11 | disposition home or self-care (01) ==
LOC: HO.HMGCLDS 14:10
PROVIDERS: PCP Nurse Practitioner Family; Visit Provider Student in an Organized Health Care Education/Training Program
DX: Z01.818 Encounter for other preprocedural examination (principal); I25.5 Ischemic cardiomyopathy
CPT/HCPCS: 36415; 80048; 85025; 85610

== ENCOUNTER 2025-01-28 11:41 | Day surgery (SDC) | payer MEDICARE, SELFPAY ==
--- OUTSIDE RECORDS SUMMARY | 2023-10-10 04:50 | XMS_ITS ---
Author Organization [facility] Address [address] [place] [address] Care Team Providers Care Cargo Mate Name Role Phone HUMPHREY POLLARD Primary Care Provider Arcenio Espinal Unavailable [phone] REASON FOR VISIT screening colon Problems Problem Type SNOMED Code ICD Code Onset Dates Problem Status W/U Status Risk Notes Problem Diverticular disease of colon (566563065) Diverticulosis of large intestine without perforation or abscess without bleeding (K57.30) Active confirmed Encounters Encounter Location Date Provider Diagnosis [facility] Outpatient [address] [place] [phone] 10/10/2023 Arcenio Gomez Colon cancer scree jaylen [...] * ELEAZAR CRAWFORDDOB:[birth year] (69 yo M)Acc No.[id number]:10/10/2023 COLON WITH MAC Patient: ELEAZAR WASHINGTON Provider: Maximiliano Gomez MD :1955 A ge:68 Y S ex:Male Date:10/10/2023 Address:[address] [address], [facility], [id number] Pcp:HUMPHREY POLLARD Subjective: * Chief Complaints: * [...] 0 10/10/2023 Generated for Juliet florez/Osvaldo/Elinitting on: 04:23 PM EDT
--- OUTSIDE RECORDS SUMMARY | 2025-01-21 16:24 | XMS_ITS | Patient Health Record ---
Author Organization [facility] Address [address] [place] [address] Care Team Providers Care Laboratory Aide Name Role Phone HUMPHREY POLLARD Primary Care Provider Arcenio Espinal [phone] Allergies No Known Allergies Reason For Referral [...] Problem Screening for malignant neoplasm of colon (892830216) Encounter for screening for malignant neoplasm of colon (Z12.11) Active confirmed Problem Diverticular disease of colon (229503531) Diverticulosis of large intestine without perforation or abscess without bleeding (K57.30) Active confirmed Problem Screening for malignant neoplasm of rectum (973819707) Encounter for screening for malignant neoplasm of rectum (Z12.12) Active confirmed Problem Preprocedural examination (589409582220740) Preprocedural examination (Z01.818) Active confirmed Problem History of polyp of colon (situation) (279324304) History of colon polyps (Z86.010) Active confirmed Problem Pre-procedure evaluation check (810145422) Pre-procedural examination (Z01.818) Active confirmed Plan Of Treatment Future Test Test Name Order Date COLONOSCOPY 07/11/2016 COLONOSCOPY 12/27/2017 COLONOSCOPY 07/03/2023 Insurance Providers Payer Name Payer Address Payer Phone Subscriber Number Group Number Insured Name Patient Relationship to Insured Coverage Start Date Coverage End Date [facility] [address] [place] [address] [id number] ELEAZAR CRAWFORD Self - patient is the insured Medical (General) History Medical History History ICD Code Colonoscopy age 51--he reports that some polyps were removed--in [place] Denies [place],DM,CVA,Lung disease,renal dise ase Hyperlipidemia CAD--4V CABG in 08/2016 PVD Colonoscopy 03/2018 with hyperplastic sampson typs He thinks he has atrial fibrillation. He is followed by Dr. Orosco. Surgical History Surgery Date(Month/Year) Vocal cords 4V CABG 09/20/2016 Vascular left leg 2020 Right carotid endarterectomy 2018
[2025-01-28] VITALS (9 sets, daily range): BP systolic 126–155; BP diastolic 69–88; PULSE 64–87; RESP 16; TEMP 35.7–36.1; O2SAT 95–100; BMI 34.4
--- NOTE | 2025-01-28 | ECG_ITS ---
Test Reason : s/p ICD. Blood Pressure : */* mmHG Vent. Rate : 61 BPM Atrial Rate : 61 BPM P-R Int : 198 ms QRS Dur : 148 ms QT Int : 468 ms P-R-T Axes : 59 30 11 degrees QTcB Int : 471 ms Normal sinus rhythm with sinus arrhythmia Right bundle branch block Inferior infarct (cited on or before 08-Jun-2016) Abnormal ECG When compared with ECG of 08-Jun-2016 08:49, Right bundle branch block is now Present Referred By: Zuhair Peters Electronically Signed By: Giovani Cuevas
--- NOTE | ~2025-01-28 | XR_ITS ---
EXAMINATION: XR CHEST CLINICAL INFORMATION: s/p ICD implant. R/o pneumothorax. COMPARISON: November 12, 2024 TECHNIQUE: Frontal view of the chest was obtained. FINDINGS: Left-sided the ICD implant with single electrode lead likely in the right ventricle. No gross pneumothorax. Mild prominence of the interstitial markings. No gross pleural effusion. Sternal wires and mediastinal vascular clips. Multilevel thoracic stenosis. Degenerative changes in the acromioclavicular joint, right shoulder. XR/XR chest 1V IMPRESSION: Left-sided ICD implant placement without the thorax. Mild interstitial lung edema. Electronically signed by: Jason Hartley MD 01/28/2025 03:51 PM EST
--- NOTE | 2025-01-28 12:45 | HO.ANESPROP2 ---
[facility] Active Problems Active Problems: All Active Problems (Updated 02/25/24 @ 14:24 by Juan Ramon Kelley, [facility]) Head congestion (Acute) Elevated liver enzymes (Acute) Right leg pain (Acute) Right hip pain (Acute) Screening for colon cancer (Acute) CAD (coronary artery disease) (Acute) Bilateral carotid artery stenosis (Acute) Ischemic cardiomyopathy (Acute) PVD (peripheral vascular disease) (Acute) Aortic ectasia (Acute) Aneurysm of left common iliac artery (Acute) HTN (hypertension) (Acute) Dyslipidemia (Acute) Nicotine dependence, cigarettes, uncomplicated (Acute) Pulmonary nodules (Acute) History of colon polyps (Acute) Leukocytosis (Acute) Vitamin D deficiency (Acute) Arthralgia (Acute) Muscle pain (Acute) Blurred vision (Acute) [place] of foot (Acute) Pigmented skin lesion of uncertain behavior of head (Acute) Hand joint pain (Acute) Left hamstring muscle strain (Acute) Left knee pain (Acute) Intractable left heel pain (Acute) Ingrown toenail (Acute) Past Medical History Medical History Fatty liver CAD (coronary artery disease) Ischemic cardiomyopathy Bilateral carotid artery stenosis PVD (peripheral vascular disease) Dyslipidemia History of colon polyps Nicotine dependence, cigarettes, uncomplicated Leukocytosis Family History Family History Father Stroke CVD (cardiovascular disease) Substance use disorder Mother CVD (cardiovascular disease) Substance use disorder Brother No problems noted. Sister Substance use disorder Family history of problems with anesthesia: No Surgical History Surgical History History of colonoscopy (~03/2018) History of right-sided carotid endarterectomy (~10/2018) History of atherectomy (~09/2020) History of coronary artery bypass graft (~08/2016) History of Problems with Anesthesia: No Social History Social History Housing: House Alcohol intake: current Alcohol intake frequency: a few times a week Alcohol type: beer Patient Tobacco Use Status: Current everyday Tobacco user Tobacco use type: Cigarette Cigarettes Per Day: 30 Years Smoked: (current smoker - onset 21yo, 1-1.5ppd x 45yrs, 50pyh) e-Cigarette/Vaping Use: Never Used Second Hand Smoke Exposure: No Are you DNR?: No Advance Directives: No Advance Directives Information Provided: Yes service: Yes Current occupational status: employed and retired Current occupational exposures/hazards: Yes Cognitive needs: No Hearing needs: No Vision needs: No Meds Allergies Allergy/AdvReac Type Severity Reaction Status Date / Time No Known Allergies Allergy Verified 08/27/24 09:36 Home Medications ?Medication ?Instructions ?Recorded ?Confirmed ?Last Taken ?Type multivitamin (Daily Multi-Vitamin 1 tab PO DAILY 05/29/22 01/28/25 01/27/25 History tablet) vitamin B complex 1 tab PO DAILY 05/29/22 01/28/25 01/27/25 History Exam Height,Weight and Vital Signs: Height 5 ft 10 in Weight 108.7 kg Last Vital Signs Temp 96.3 F L 01/28/25 12:19 Pulse 75 01/28/25 12:19 Resp 16 01/28/25 12:19 BP 152/88 H 01/28/25 12:19 Pulse Ox 98 01/28/25 12:19 O2 Del Method Room Air 01/28/25 12:19 Airway Mallampati Class: III (small mouth opening) TM Dist: >3cm Neck ROM: Full Heart: rrr Lungs: cta Assessment and Plan Assessment Anesthesia Assessment: Anesthesia Plan Discussed and Chart Reviewed Final Anesthetic Review Family History of Problems with Anesthesia: No History of Problems with Anesthesia: No NPO: Yes ASA Class: III Final Preanesthetic Review: No Changes in Pt Med Stat, Meds/Allgs Chart Reviewed and Consent Obtained/Reviewed Patient Risk: Intermediate Procedure Risk: Intermediate Anesthetic Plan Anesthetic Plan: GA Disposition: Standard PACU
[2025-01-28] MEDS: Lactated Ringers 1,000 ML 80 ML IVCONT (12:49)
--- NOTE | 2025-01-28 13:06 | P.OP_ITS ---
Operative Note Operative Note Date of Service: 01/28/25 Narrative: Indication: Ischemic cardiomyopathy HFrEF, NYHA class 2 CHF despite maximally tolerated GDMT for at least 3 months CAD s/p CABG RBBB Shared decision making tool was utilized with the patient when seen in the clinic and we mutually decided to proceed w/ ICD implantation. Summary: 1. Implantation of single chamber [employer] [employer] primary prevention ICD (CPT 82637) Narrative: Patient presented to the EP lab in a fasting, nonsedated state after written informed consent was verified. The procedure was performed under anesthesia. 2g IV Ancef was administered prior to skin incision. The patient was prepped and draped in the usual sterile manner. A 1-inch incision was made in the left subclavicular region. An ICD pocket was created using a combination of electrocautery and blunt dissection. The left subclavian vein accesses was obtained with a micropuncture needle and wire. An 8-Fr sheath was advanced over the guidewire. The ICD lead was advanced to the apical septal region. The active fixation mechanism was extended in the usual manner. Lead parameters (injury, capture threshold, impedance, and sensing) were checked to be within the optimal range. Adequate slack was confirmed on the lead. The 8-Fr sheath was slit. The stylet was removed. The lead was secured to the underlying pectoralis muscle using 0-Ethibond suture. The ICD generator was brought to the field. The lead was inserted into the respective port of the generator. The lead was secured in the header using the provided torque wrench. The pocket was flushed with an antibiotic irrigant. Any bleeders within the pocket were controlled with electrocautery. The lead was wrapped underneath the generator and the generator was placed back within the pocket. The pocket was closed in three layers using 2-0 followed by 4-0 V-Loc. Dermabond was applied over the incision site. Gauze and tegaderm dressing were then placed over the incision site. Patient was then transported back to recovery in a stable condition. Recommendations: 1. CXR and EKG now. 2. Device interrogation prior to discharge. 3. Resume Xarelto on 01/31/25. Resume aspirin on 01/30/25. 4. Wear left arm sling continuously for 24 hours. Then wear it only when sleeping for 2 weeks. 5. No raising left arm above shoulder level or reaching behind the back with left arm for 4 weeks. No driving for 2 weeks. 6. Keep chest incision site dry for 7 days. 7. Remove the gauze and Tegaderm dressing after 3 days. 8. Follow up in clinic in 1-2 weeks for incision site check. Procedure start: 1:39 PM Procedure end: 2:45 PM
== END 2025-01-28 16:43 | disposition home or self-care (01) ==
PROVIDERS: PCP Nurse Practitioner Family; Visit Provider Student in an Organized Health Care Education/Training Program
DX: I25.5 Ischemic cardiomyopathy (principal); I25.2 Old myocardial infarction; I50.22 Chronic systolic (congestive) heart failure; I25.10 Atherosclerotic heart disease of native coronary artery without angina pectoris; I45.10 Unspecified right bundle-branch block; I65.23 Occlusion and stenosis of bilateral carotid arteries; Z95.1 Presence of aortocoronary bypass graft; Z95.0 Presence of cardiac pacemaker; E78.5 Hyperlipidemia, unspecified; D72.829 Elevated white blood cell count, unspecified; I73.89 Other specified peripheral vascular diseases; K76.0 Fatty (change of) liver, not elsewhere classified; Z79.01 Long term (current) use of anticoagulants; Z79.82 Long term (current) use of aspirin; Z79.899 Other long term (current) drug therapy; Z98.890 Other specified postprocedural states; F17.210 Nicotine dependence, cigarettes, uncomplicated
CPT/HCPCS: 33249; 71045; 93005; C1721; C1777; C1894; J0690; J1100; J2003; J2250; J2371; J2405; J3010; J3374

== ENCOUNTER → 2025-01-28 15:17 | Outpatient (BNV) | payer MEDICARE, SELFPAY | PROVIDERS: PCP Nurse Practitioner Family; Visit Provider Radiology Diagnostic Radiology | DX: J81.1 Chronic pulmonary edema (principal) | CPT/HCPCS: 71045 ==

== ENCOUNTER → 2025-01-28 15:24 | Outpatient (BNV) | payer MEDICARE, SELFPAY | PROVIDERS: PCP Nurse Practitioner Family; Visit Provider Internal Medicine Cardiovascular Disease | DX: I45.10 Unspecified right bundle-branch block (principal); I25.2 Old myocardial infarction | CPT/HCPCS: 93010 ==

== ENCOUNTER 2025-02-03 12:25 | Outpatient (AMB) | payer MEDICARE, SELFPAY ==
--- OUTSIDE RECORDS SUMMARY | 2023-10-10 03:50 | XMS_ITS ---
Author Organization [facility] Address [address] [place] [address] Care Team Providers Care Call Or Contact Centre Manager Name Role Phone HUMPHREY POLLARD Primary Care Provider Arcenio Espinal Unavailable [phone] REASON FOR VISIT screening colon Problems Problem Type SNOMED Code ICD Code Onset Dates Problem Status W/U Status Risk Notes Problem Diverticular disease of colon (896257871) Diverticulosis of large intestine without perforation or abscess without bleeding (K57.30) Active confirmed Encounters Encounter Location Date Provider Diagnosis [facility] [place], [place] [phone] 10/10/2023 Arcenio Gomez Colon cancer scree jaylen [...] * ELEAZAR CRAWFORDDOB:[birth year] (69 yo M)Acc No.[id number]:10/10/2023 COLON WITH MAC Patient: ELEAZAR WASHINGTON Provider: Maximiliano Gomez MD :1955 A ge:68 Y S ex:Male Date:10/10/2023 Address:[address] [address], [facility], [id number] Pcp:HUMPHREY POLLARD Subjective: * Chief Complaints: * 1 . Screening colon. * Medical History: Objective: * Vitals: Assessment: * Assessment: 1. C olon cancer screening - Z12.11 (Primary) 2 . C olon polyps - K63.5? 3. F amily history of colon cancer - Z80.0 4 . D iverticulosis of large intestine without perforation or abscess without bleeding - K57.30 5 . Other hemorrhoids - K64.8 Plan: * Treatment: * Procedure Codes: 4 5385 LESION REMOVAL COLONOSCOPY, Modifiers: PT , 0529F INTRVL 3+YRS PTS CLNSCP DOCD, Modifiers: 8P , 0528F RCMND FLW-UP 10 YRS DOCD, Modifiers: 1P * * The named appointment provid er may or may not be the originator of this progress note, and it is not deemed complete until electronically signed by the appointment provider. Sign off status: Pending * Provider: Maximiliano Gomez MD Date: 0 10/10/2023 Generated for Juliet florez/Osvaldo/Bartolo on: 04/05/2024 02:19 PM EST
--- NOTE | 2025-02-03 12:34 | MHC.PC.OV ---
Vital Signs 02/03/25 12:35 Height 5 ft 10 in Weight 247 lb BMI 35.4 BP 134/78 Blood Pressure Location Lt brachial Position Sitting Respiration 17 Pulse 81 Pulse Source Pulse Oximeter Temp 97.7 F Temp Source Oral Pulse Oximetry (%) 98 Oxygen Delivery Method Room Air Intake Visit Reasons: follow up Intake Note: Pt is here today for a follow up visit. Allergies No Known Allergies Allergy (Verified 02/03/25 13:27) Medication List - Last Reconciled 02/03/25 by JOSE Ramírez- aspirin 81 mg PO DAILY atorvastatin 80 mg PO DAILY ezetimibe 10 mg PO DAILY 90 days isosorbide mononitrate ER 30 mg PO DAILY metoprolol succinate ER 50 mg PO Q12H multivitamin (Daily Multi-Vitamin tablet) 1 tab PO DAILY rivaroxaban (Xarelto) 2.5 mg PO BID sacubitril-valsartan 49-51 mg (Entresto) 1 tab PO BID vitamin B complex 1 tab PO DAILY Tobacco use date assessed: 02/03/25 Fall risk assessment: No Falls in past year Last assessed Fall Risk: 02/03/25 Dental Screening Dental Screen Date: 08/27/24 HPI follow up HPI Details Chief Complaint The patient presents for a follow-up visit after a recent defibrillator pacer placement. History of Present Illness The patient is a 69-year-old male presenting for a follow-up visit after having a defibrillator-pacer placed in his left upper chest last Sunday (01/28/2025). He reports feeling great and denies any postoperative fever, chills, nausea, or vomiting. He demonstrates understanding of wound care instructions, including avoiding showers until the end of the week and keeping the site dry. He has a history of ongoing leukocytosis, which is believed to be related to his smoking habit. The patient has been smoking for many years and does not wish to quit. He participates in a low-dose CT scan program for lung cancer screening. Social History - Tobacco Use: The patient has a history of smoking for many years and does not wish to quit at this time. Health Maintenance - The patient is enrolled in a low-dose CT scan program. Review of Systems - Constitutional: Denies fever and chills. - Gastrointestinal: Denies nausea and vomiting. -denies any s/s of infection to pacer/defib site Physical Exam General: Cooperative, healthy appearing, comfortable, no acute distress and well developed, obese Orientation: Patient oriented x3 Limitations: No limitations Head: Normal to inspection Ears: Hearing grossly normal bilaterally Nose: Normal external nose present Face and sinus: Normal facial exam Eyes: Appearance normal, both eyes and all related structures Neck: Normal visual inspection and Yes full ROM Respiratory: Slightly diminished bilaterally, able to speak in complete sentences Cardiovascular: Regular rate and rhythm. Normal S1 and S2, faint systolic murmur GI: Normal to inspection. Soft to palpation and nontender Skin: No rashes or lesions noted Neuro: Patient oriented x3 Extremities: Normal to inspection Results Plan 1. Follow-Up After Defibrillator Pacer Implantation The patient is recovering well from his recent defibrillator pacer placement. The surgical site shows no signs of infection and the patient understands the wound care instructions. A follow-up visit for a full physical with labs is scheduled in approximately two months. 2. Leukocytosis The patient has ongoing leukocytosis, which is likely related to his chronic smoking. A referral will be made to hematology/oncology for further evaluation. 3. Tobacco Use Disorder The patient has a long history of smoking and does not wish to quit. He will continue to be monitored via the low-dose CT scan program. Discussion Notes I assessed the patient's recovery following his recent defibrillator pacer implantation and found him to be doing well, with no signs of infection at the surgical site. I reiterated wound care instructions, which he understood. We discussed his ongoing leukocytosis, which I believe is related to his smoking, and I informed him that I will be referring him to Hematology/Oncology for this. He acknowledged his participation in the low-dose CAT scan program and his decision to continue smoking. I informed him that we will schedule a full physical exam with more labs in approximately two months. Patient Instructions - Do not take a shower until the end of this week. - After showering, pat the area of your incision dry; do not try to get water on it. - We will make a referral for you to see a blood specialist (hematology/oncology) for your high white blood cell count. - Please schedule a follow-up appointment in about two months for a full physical exam and new lab work. [facility] Medical History (Updated 02/03/25 @ 13:04 by Juan Ramon Kelley [facility]) Pacemaker Cardiac defibrillator in place Fatty liver CAD (coronary artery disease) Ischemic cardiomyopathy Bilateral carotid artery stenosis PVD (peripheral vascular disease) Dyslipidemia History of colon polyps Nicotine dependence, cigarettes, uncomplicated Leukocytosis Surgical History History of colonoscopy (~03/2018) History of right-sided carotid endarterectomy (~10/2018) History of atherectomy (~09/2020) History of coronary artery bypass graft (~08/2016) Family History Father Stroke CVD (cardiovascular disease) Substance use disorder Mother CVD (cardiovascular disease) Substance use disorder Brother No problems noted. Sister Substance use disorder Social History Housing: House Alcohol intake: current Alcohol intake frequency: a few times a week Alcohol type: beer Patient Tobacco Use Status: Current everyday Tobacco user Tobacco use type: Cigarette Cigarettes Per Day: 30 Years Smoked: (current smoker - onset 21yo, 1-1.5ppd x 45yrs, 50pyh) e-Cigarette/Vaping Use: Never Used Second Hand Smoke Exposure: No service: Yes Current occupational status: employed and retired Current occupational exposures/hazards: Yes Cognitive needs: No Hearing needs: No Vision needs: No Questionnaire Thrive Questionnaire Date Thrive assessed: 08/20/24 I am a: Patient What is your living situation today?: I have a steady place to live Within the past 12 months, did the food you bought not last and you didn't have the money to get more?: Never true Within the past 12 months, did you worry whether your food would run out before you got money to buy more?: Never true Do you have trouble paying for medicines?: No Do you have trouble getting transportation to medical appointments?: No Do you have trouble paying your heating and electricity bill?: No Do you have trouble taking care of your child, family member or friend?: No Do you have trouble with day-to-day activities such as bathing, preparing meals, shopping, managing finances, etc.?: No Are you currently unemployed and looking for a job?: No Are you interested in more education?: No Please select the resources that you would like help with: None Currently or been in a relationship where the following occur: No concerns reported THRIVE Score: 0 ISHAN-7 AMB Questionnaire ISHAN-7 Date ISHAN - 7 assessed: 08/27/24 Source: Developed by Drs. Arcenio Hobbs, Hawa Hancock, Taran Sauceda and colleagues, with an educational elsy from [employer]. Physical exam (Primary Care) Vital Signs: Last Vital Signs Temp 97.7 F 02/03/25 12:35 Pulse 81 02/03/25 12:35 Resp 17 02/03/25 12:35 BP 134/78 02/03/25 12:35 Pulse Ox 98 02/03/25 12:35 Oxygen Delivery Method Room Air 02/03/25 12:35 BMI result Body Mass Index 35.4 Tobacco/Smoking Status: Tobacco use Status Tobacco use date assessed 02/03/25 02/03/25 12:42 Patient Tobacco Use Status Current everyday Tobacco 02/03/25 12:34 Tobacco use type Cigarette 02/03/25 12:34 e-Cigarette/Vaping Use Never Used 02/03/25 12:34 Thrive Assessment: Date of Thrive Assessment Date Thrive assessed 08/20/24 02/03/25 12:34 Currently or been in a relationship where the following occur: No concerns reported Coding Level of Care Code Est Pt Level 3 (85066) Diagnoses Leukocytosis D72.829 Pacemaker Z95.[address] Z95.810 Assessment & Plan Assessment & Plan (1) Leukocytosis: Code(s): D72.829 - Elevated white blood cell count, unspecified Category: Medical (2) Pacemaker: Code(s): Z95.0 - Presence of cardiac pacemaker Category: Medical (3) Cardiac defibrillator in place: Code(s): Z95.810 - Presence of automatic (implantable) cardiac defibrillator Category: Medical Plan . Orders: Referrals Hematology & Oncology Referral D72.829 - Elevated white blood cell count, unspecified
[2025-02-03 12:35] VITALS: BP 134/78; PULSE 81; RESP 17; TEMP 36.5; O2SAT 98; BMI 35.4
--- OUTSIDE RECORDS SUMMARY | 2025-02-03 14:20 | XMS_ITS | Patient Health Record ---
Author Organization [facility] Address [address] [place] [address] Care Team Providers Care Press Assistant Name Role Phone HUMPHREY POLLARD Primary Care Provider Arcenio Espinal [phone] Allergies No Known Allergies Reason For Referral [...] Problem Screening for malignant neoplasm of colon (873962057) Encounter for screening for malignant neoplasm of colon (Z12.11) Active confirmed Problem Diverticular disease of colon (476319555) Diverticulosis of large intestine without perforation or abscess without bleeding (K57.30) Active confirmed Problem Screening for malignant neoplasm of rectum (338469175) Encounter for screening for malignant neoplasm of rectum (Z12.12) Active confirmed Problem Preprocedural examination (272004193571480) Preprocedural examination (Z01.818) Active confirmed Problem History of polyp of colon (situation) (130174739) History of colon polyps (Z86.010) Active confirmed Problem Pre-procedure evaluation check (361977196) Pre-procedural examination (Z01.818) Active confirmed Plan Of Treatment Future Test Test Name Order Date COLONOSCOPY 07/11/2016 COLONOSCOPY 12/27/2017 COLONOSCOPY 07/03/2023 Insurance Providers Payer Name Payer Address Payer Phone Subscriber Number Group Number Insured Name Patient Relationship to Insured Coverage Start Date Coverage End Date [facility] [address] [place] [address] [id number] ELEAZAR CRAWFORD Self - patient is the insured Medical (General) History Medical History History ICD Code Colonoscopy age 51--he reports that some polyps were removed--in [place],DM,CVA,Lung disease,renal dise ase Hyperlipidemia CAD--4V CABG in 08/2016 PVD Colonoscopy 03/2018 with hyperplastic sampson typs He thinks he has atrial fibrillation. He is followed by Dr. Orosco. Surgical History Surgery Date(Month/Year) Vocal cords 4V CABG 09/20/2016 Vascular left leg 2020 Right carotid endarterectomy 2018
== END 2025-02-03 14:12 | disposition home or self-care (01) ==
LOC: HO.HMCC 12:26
PROVIDERS: PCP Nurse Practitioner Family; Visit Provider Nurse Practitioner Family
DX: D72.829 Elevated white blood cell count, unspecified (principal); Z95.0 Presence of cardiac pacemaker; Z95.810 Presence of automatic (implantable) cardiac defibrillator

== ENCOUNTER → 2025-02-03 12:25 | Outpatient (BNVA) | payer MEDICARE, SELFPAY | PROVIDERS: PCP Nurse Practitioner Family; Visit Provider Nurse Practitioner Family | DX: D72.829 Elevated white blood cell count, unspecified (principal); Z95.810 Presence of automatic (implantable) cardiac defibrillator | CPT/HCPCS: 99212 ==

== ENCOUNTER → 2025-03-11 15:19 | Outpatient (BNV) | payer MEDICARE, SELFPAY | PROVIDERS: PCP Nurse Practitioner Family; Visit Provider Internal Medicine Cardiovascular Disease | DX: Z45.02 Encounter for adjustment and management of automatic implantable cardiac defibrillator (principal) | CPT/HCPCS: 93295 ==

== ENCOUNTER → 2025-03-13 13:34 | Outpatient (BNV) | payer MEDICARE, SELFPAY | PROVIDERS: PCP Nurse Practitioner Family; Referring Provider Nurse Practitioner Family; Visit Provider Nurse Practitioner Family | DX: D72.829 Elevated white blood cell count, unspecified (principal) | CPT/HCPCS: 99204 ==

== ENCOUNTER 2025-03-16 09:12 | Outpatient (REF) | payer MEDICARE, SELFPAY ==
--- OUTSIDE RECORDS SUMMARY | 2023-10-10 03:50 | XMS_ITS ---
Author Organization [facility] Address [address] [place] [address] Care Team Providers Care Bench Loom Weaver Name Role Phone HUMPHREY POLLARD Primary Care Provider Arcenio Espinal Unavailable [phone] REASON FOR VISIT screening colon Problems Problem Type SNOMED Code ICD Code Onset Dates Problem Status W/U Status Risk Notes Problem Diverticular disease of colon (211250514) Diverticulosis of large intestine without perforation or abscess without bleeding (K57.30) Active confirmed Encounters Encounter Location Date Provider Diagnosis [facility] [address] [place], [place] [id number] 10/10/2023 Arcenio Gomez Colon cancer scree jaylen Z12.11 ; Colon polyps K63.5 ; Family history of colon cancer Z80.0 ; Diverticulosis of large intestine without perforation or abscess without bleeding K57.30 and Other hemorrhoids K64.8 Assessments Encounter Date Diagnosis (ICD Code) Assessment Notes Treatment Notes Treatment Clinical Notes Section Notes 10/10/2023 Colon cancer screening (ICD-10 - Z12.11) 10/10/2023 Colon polyps (ICD-10 - K63.5) 10/10/2023 Family history of colon cancer (ICD-10 - Z80.0) 10/10/2023 Diverticulosis of large intestine without perforation or abscess without bleeding (ICD-10 - K57.30) 10/10/2023 Other hemorrhoids (ICD-10 - K64.8) Plan Of Treatment No Information Progress Notes * ELEAZAR CRAWFORDDOB:[birth year] (69 yo M)Acc No.[id number]:10/10/2023 COLON WITH MAC Patient: ELEAZAR WASHINGTON Provider: Maximiliano Gomez MD :1955 A ge:68 Y S ex:Male Date:10/10/2023 Address:[address] [address], [facility], [id number] Pcp:HUMPHREY POLLARD Subjective: * Chief Complaints: * S creening colon Assessment: * Assessment: 1. C olon cancer screening - Z12.11 (Primary) 2 . C olon polyps - K63.5? 3. F amily history of colon cancer - Z80.0 4 . D iverticulosis of large intestine without perforation or abscess without bleeding - K57.30 5 . Other hemorrhoids - K64.8 Plan: * Procedure Codes: 4 5385 LESION REMOVAL COLONOSCOPY, Modifiers: PT 0529F INTRVL 3+YRS PTS CLNSCP DOCD, Modifiers: 8P 0528F RCMND FLW-UP 10 YRS DOCD, Modifiers: 1P Billing Information: * Procedure Codes: 47406 LESION REMOVAL COLONOSCOPY. Modifiers: PT 0529F INTRVL 3+YRS PTS CLNSCP DOCD. Modifiers: 8P 0528F RCMND FLW-UP 10 YRS DOCD. Modifiers: 1P * The named appointment provid er may or may not be the originator of this progress note, and it is not deemed complete until electronically signed by the appointment provider. Sign off status: Pending * Provider: Maximiliano Gomez MD Date: 0 10/10/2023 Generated for Juliet florez/Osvaldo/Elinitting on: 1 05/17/2024 10:13 AM EST
--- OUTSIDE RECORDS SUMMARY | 2025-03-16 10:14 | XMS_ITS | Patient Health Record ---
Author Organization [facility] Address [address] [place] [address] Care Team Providers Care Insulation Supervisor Name Role Phone HUMPHREY POLLARD Primary Care Provider Arcenio Espinal [phone] Allergies No Known Allergies Reason For Referral No Information Medications Medication SIG (Take, Route, Frequency, Duration) Notes Start Date End Date Status Ezetimibe 10 MG Tablet 1 tablet Orally O nce a day Active Aspir-81 81 MG Tablet Delayed Release 1 tablet Orally Once a day Active Vitamin D3 2000 UNIT Capsule 1 capsule Orally Once a day Active Metoprolol Tartrate 25 MG Tablet 1 tablet with food Orally Twice a day Active Lisinopril 2.5 MG Tablet 1 tablet Orally Once a day Active Atorvastatin Calcium 80 MG Tablet 1 tablet Orally Once a day Active Aspirin Low Dose 81 MG Tablet Delayed Release TAKE 1 TABLET BY MOUTH EVERY DAY Oral; Duration: 90 Active Metoprolol Succinate ER 50 MG Tablet Extended Release 24 Hour Oral; Duration: 90 Active Xarelto 2.5 MG Tablet Oral; Duration: 60 Active Isosorbide Mononitrate ER 30 MG Tablet Extended Release 24 Hour TAKE 1 TABLET BY MOUTH EVERY DAY Oral; Duration: 90 Active Social History Tobacco Use: Social History Observation Description Date Details (start date - stop date) Current Smoker NA - NA Social History Tobacco Use: Social Info Question Answer Notes Tobacco Use/Smoking Patient is a current smoker How often do you smoke cigarettes? every day How many cigarettes a day do you smoke? 21-30 How soon after you wake up do you smoke your first cigarette? within 5 minutes Are you interested in quitting? Thinking about quitting Additional Details Category Social Info Options Details Miscellaneous: Marital status: Single Occupation: [employer] retired Section Notes: Nonsmoker since 04/26/2016; 6 beers once a week Smoker; 6 beers once a week in the winter and daily over the summer Smoker; 6 beers once a week in the winter and daily over the summer Problems Problem Type SNOMED Code ICD Code Onset Dates Problem Status W/U Status Risk Notes Problem Screening for malignant neoplasm of colon (304107505) Encounter for screening for malignant neoplasm of colon (Z12.11) Active confirmed Problem Diverticular disease of colon (189273499) Diverticulosis of large intestine without perforation or abscess without bleeding (K57.30) Active confirmed Problem Screening for malignant neoplasm of rectum (366897487) Encounter for screening for malignant neoplasm of rectum (Z12.12) Active confirmed Problem Preprocedural examination (143806008084057) Preprocedural examination (Z01.818) Active confirmed Problem History of polyp of colon (situation) (770761841) History of colon polyps (Z86.010) Active confirmed Problem Pre-procedure evaluation check (679497886) Pre-procedural examination (Z01.818) Active confirmed Plan Of Treatment Future Test Test Name Order Date COLONOSCOPY 07/11/2016 COLONOSCOPY 12/27/2017 COLONOSCOPY 07/03/2023 Insurance Providers Payer Name Payer Address Payer Phone Subscriber Number Group Number Insured Name Patient Relationship to Insured Coverage Start Date Coverage End Date [facility] [address] [place] [address] [id number] ELEAZAR CRAWFORD Self - patient is the insured Medical (General) History Medical History History ICD Code Colonoscopy age 51--he reports that some polyps were removed--in [place],DM,CVA,Lung disease,renal dise ase Hyperlipidemia CAD--4V CABG in 08/2016 PVD Colonoscopy 03/2018 with hyperplastic sampson typs He thinks he has atrial fibrillation. He is followed by Dr. Orosco. Surgical History Surgery Date(Month/Year) Vocal cords 4V CABG 09/20/2016 Vascular left leg 2020 Right carotid endarterectomy 2018
[2025-03-16 13:55] LABS: Baso%MD 0.5 %; Eos%MD 2.9 %; Hematocrit 48.0 % (42.0-52.0); Hemoglobin 16.0 g/dl (14.0-18.0); IG%MD 0.4 %; Lymph%MD 17.6 %; Mean Corpuscular HGB Conc 33.3 g/dl (31.0-36.0); Mean Corpuscular Hemoglobin 33.1 pg (27.0-33.0); Mean Corpuscular Volume 99.4 fL (80.0-98.0); Mono%MD 6.7 %; NRBC Abs Auto 0.000 X10*3/uL (0.0-0.012); NRBC Pct Auto 0.0 /100WBC (0.0-0.2); Neut%MD 71.9 %; Platelet Count 207 X10*3/uL (160-400); Red Blood Count 4.83 X10*6/uL (4.60-5.80); White Blood Count 11.0 X10*3/uL (4.8-10.8)
[2025-03-16 14:39] LABS: Alanine Aminotransferase 38 U/L (0-40); Albumin Level 4.3 g/dL (3.5-5.0); Alkaline Phosphatase 75 U/L (39-117); Anion Gap 11 (12-20); Aspartate Amino Transferase 36 U/L (5-37); Blood Urea Nitrogen 14 mg/dL (9-16); Calcium 9.4 mg/dL (8.4-10.2); Carbon Dioxide 24 mmol/L (22-29); Chloride 109 mmol/L (96-108); Estimated Glomerular Filt Rate > 60; Potassium 4.6 mmol/L (3.3-5.1); Sodium 139 mmol/L (135-145); Total Protein 6.8 g/dL (6.5-8.0)
[2025-03-16 14:48] LABS: Basophils Abs Manual 0.1 X10*3/uL (0.0-0.2); Basophils Percent Manual 1 % (0-2); Eosinophils Absolute Manual 0.2 X10*3/uL (0.0-0.4); Eosinophils Percent Manual 2 % (0-4); Lymphocytes Absolute Manual 1.8 X10*3/uL (1.2-4.9); Lymphocytes Percent Manual 16 % (20-40); Monocytes Absolute Manual 0.2 X10*3/uL (0.1-1.2); Monocytes Percent Manual 2 % (2-11); Neutrophils Percent Manual 79 % (45-73)
[2025-03-16 14:49] LABS: Acanthocytes 2+ (3-5) /OIF; Macrocytosis 1+ (5-14) /OIF; RBC Morphology NOTED
[2025-03-16 14:50] LABS: Band Neutrophils Percent 0 % (3-5); Burr Cells 2+ (3-5) /OIF; Neutrophils Absolute Manual 8.7 X10*3/uL (2.0-8.3)
[2025-03-16 15:16] LABS: Folate > 20.0 ng/mL (> or = 4.0); Vitamin B12 692 pg/mL (200-900)
== END 2025-03-16 09:13 | disposition home or self-care (01) ==
LOC: HO.HMGCLDS 09:12
PROVIDERS: Absent Provider Nurse Practitioner Family; PCP Nurse Practitioner Family; Visit Provider Nurse Practitioner Family
DX: D72.829 Elevated white blood cell count, unspecified (principal)
CPT/HCPCS: 36415; 80053; 81207; 82607; 82746; 83615; 85007; 85027; 85652

== ENCOUNTER → 2025-03-20 16:14 | Outpatient (BNV) | payer MEDICARE, SELFPAY | PROVIDERS: PCP Nurse Practitioner Family; Visit Provider Internal Medicine Cardiovascular Disease | DX: Z45.02 Encounter for adjustment and management of automatic implantable cardiac defibrillator (principal) | CPT/HCPCS: 93297 ==